=== PATIENT | female | born 1955 | race Caucasian/White ===

== ENCOUNTER 2025-06-06 15:16 | Emergency (ER) | payer MEDICARE, SELFPAY ==
--- OUTSIDE RECORDS SUMMARY | 2025-04-27 09:53 | XMS_ITS | Encounter Summary ---
Author Organization [facility] Address [address] [place] [address] Care Team Providers Care Flag Maker Name Role Phone Fredy Liang MD Unavailable Unavailable Nik Mackey MD Unavailable [phone] Coleman Davalos MD Unavailable [phone] Kristin Merino MD Primary Care Provider [phone] Abebe Hernandez MD Unavailable [phone] Chago Katz MD Unavailable [phone] Yemi Deleon PA-C Unavailable [phone] Reason for Referral * Diagnostic Imaging XR (Routine) - Pending Review Specialty Diagnoses / Procedures Referred By Sheree crowe Referred To Contact Radiology. 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) Decreased appetite History of choking Pancreatic lesion Essential (primary) hypertension Procedures XR Video Swallow with EXTRACT MIXER or OT Dorinda Valentin PA-C [facility] [address] [place] [address] Phone: tel: fax: Referral ID Status Reason Start Date Expiration Date V isits Requested Visits Authorized [id number] Pending Review 03/14/2025 03/14/2026 1 1 Encounter Details Date Type Department Care Team (Late st Contact Info) Description 04/27/2025 10:53 AM CDT - 04/27/2025 10:54 AM CDT Hospital Encounter [facility] [address] [facility] [address] [place] [address] Dorinda Valentin PA-C [facility] [address] [place] [address] 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); Decreased appetite; History of choking; Pancreatic lesion; Essential (primary) hypertension Discharge Disposition: Home or Self Care Social History Tobacco Use Types Packs/Day Years Used Date Smoking Tobacco: Never Passive Smoke Exposure: Never Smokeless Tobacco: Never Alcohol Use Standard Drinks/Week Comments No 0 (1 standard drink = 0.6 oz pur e alcohol) PHQ-2 Answer Date Recorded PHQ-2 Score 0 08/08/2024 Adolescent Education Answer Date Record ed Getting School Help Needed Not on file 04/05 Food Insecurity Answer Date Recorded Within the past 12 months, d id you worry that your food would run out before you got money to buy more? No 11/22/2024 Within the past 12 months, d id the food you bought just not last and you didn t have money to get more? No 11/22/2024 Housing Stability Answer Date Recorded Do you have housing? (Housin g is defined as stable permanent housing and does not include staying outside in a car, in a tent, in an abandoned building, in an overnight longterm, or couch-surfing.) Yes 11/22/2024 Are you worried about losing your housing? No 11/22/2024 Financial Resource Strain Answer Date R ecorded Within the past 12 months, h ave you or your family members you live with been unable to get utilities (heat, electricity) when it was really needed? No 11/22/2024 Transportation Needs Answer Date Record ed Within the past 12 months, h as lack of transportation kept you from medical appointments, getting your medicines, non-medical meetings or appointments, work, or from getting things that you need? No 11/22/2024 Interpersonal Safety Answer Date Record ed Do you feel physically and e motionally safe where you currently live? Yes 11/22/2024 Within the past 12 months, h ave you been hit, slapped, kicked or otherwise physically hurt by someone? No 11/22/2024 Within the past 12 months, h ave you been humiliated or emotionally abused in other ways by your partner or ex-partner? No 11/22/2024 Comments No Sex and Gender Information Value Date Recorded Sex Assigned at Not on file Legal Sex Female 3:26 AM MENU PLANNER Gender Identity Not on file Sexual Orientation Not on file documented as of this encounter Medications at Time of Discharge acetaminophen (TYLENOL) 325 MG tabletIndications:Uri nary tract infection without hematuria, site unspecified Take 3 tablets (975 mg) by mouth every 8 hours as needed for mild pain, fever or headaches. 11/29/2024 Continuous Glucose Sensor (FREESTYLE DASHA 3 SENSOR) [facility] [place] DIRECTED AND CHANGE SENSOR EVERY 14 DAYS 10/24/2023 furosemide (LASIX) 20 MG tabletIndications:Oth er cirrhosis of liver (H) Take 1 tablet (20 mg) by mouth daily. 11/29/2024 lactobacillus rhamnosus, GG, (CULTURELL) capsuleIndications:Ur inary tract infection without hematuria, site unspecified Take 1 capsule by mouth 2 times daily. 11/29/2024 metFORMIN (GLUCOPHAGE) 500 MG tabletIndications:Typ e 2 diabetes mellitus with hyperglycemia, without long-term current use of insulin (H) Take 1 tablet (500 mg) by mouth 2 times daily (with meals). 11/29/2024 mirabegron (MYRBETRIQ) 25 MG 24 hr tabletIndications:Uri nary tract infection without hematuria, site unspecified Take 1 tablet (25 mg) by mouth daily. 11/30/2024 nitroFURantoin macrocrystal-monohydr ate (MACROBID) 100 MG capsuleIndications:Ne phrolithiasis Take 1 capsule (100 mg) by mouth 2 times daily. 6 capsule 12/07/2024 ondansetron (ZOFRAN ODT) 4 MG ODT tabIndications:Recurr ent nephrolithiasis Take 1 tablet (4 mg) by mouth every 6 hours as needed for nausea. 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 30 capsule 09/29/2024 THYROID PO Take 45 mg by mouth daily. Natural/compo unded 12/15/2016 documented as of this encounter Plan of Treatment Upcoming Encounters Date Type Department Care Team (Late st Contact Info) Description 06/12/2025 1:20 PM MENU PLANNER Ancillary Procedure [facility] [address] [facility] [address] [place] [phone] Chago Katz MD [address] [place], [place] [address] 06/13/2025 3:00 PM MENU PLANNER Infusion Therapy Visit [facility] [address] [facility] [address] [place] [phone] Nate Beauchamp MD [address] [facility] [address] [place] [address] 06/16/2025 11:15 AM MENU PLANNER Virtual Visit [facility] [place] [address] [facility] [address] [place] [phone] Chago Katz MD [address] [place], [place] [address] 07/11/2025 3:00 PM MENU PLANNER Infusion Therapy Visit [facility] [address] [facility] [address] [place] [address] Nate Beauchamp MD [address] [facility] [address] [place] [address] 08/14/2025 12:30 PM MENU PLANNER Office Visit [facility] - [facility] [address] [facility] 9th Fl Clin [address] [place] [phone] Coleman Davalos MD [address] [facility] [address] [place] [address] documented as of this encounter Procedures Procedure Name Priority Date/Time Associated Diagnosis Comments XR VIDEO SWALLOW WITH EXTRACT MIXER OR OT Routine 04/27/2025 11:44 AM CDT 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 No aspiration or penetration. Narrative 04/27/2025 12:04 PM CDT EXAM: XR VIDEO SWALLOW WITH EXTRACT MIXER OR OT LOCATION: [facility] DATE: 04/27/2025 INDICATION: Difficulty swallowing. COMPARISON: None. TECHNIQUE: Routine swallow study with Speech Pathology using multiple barium thicknesses. RADIATION DOSE: Total Air Kerma 1.5 mGy FINDINGS: Swallow study with Speech Pathology using multiple barium thicknesses. No aspiration or penetration. Normal barium tablet swallowing. Procedure Note Len Tolentino MD - 04/27/2025 EXAM: XR VIDEO SWALLOW WITH EXTRACT MIXER OR OT LOCATION: [facility] DATE: 04/27/2025 INDICATION: Difficulty swallowing. COMPARISON: None. TECHNIQUE: Routine swallow study with Speech Pathology using multiplebarium thicknesses. RADIATION DOSE: Total Air Kerma 1.5 mGy FINDINGS: Swallow study with Speech Pathology using multiple barium thicknesses. No aspiration or penetration. Normal barium tablet swallowing. IMPRESSION: 1. No aspiration or penetration. 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 liver disease Decreased appetite Anorexia History of choking Pancreatic lesion Unspecified disease of pancreas Essential (primary) hypertension Unspecified essential hypertension documented in this encounter Administered Medications Inactive Administered Medications - up to 3 most recent administrations Medication Order MAR Action Action Date Dose Rate Site barium sulfate (EZ-DISK) 700 MG tablet Starting on [place] 04/27/25 at 1122, For 1 dose, Lorena Hameed: cabinet override $Given by Other 04/27/2025 11:40 AM CDT 700 mg barium sulfate (VARIBAR THIN Liquid) 40 % oral suspension 16 g 16 g (40 mL), Oral, ONCE, On [place] 04/27/25 at 1130, For 1 dose $Given 04/27/2025 11:40 AM CDT 16 g barium sulfate (VARIBAR) 40 % pudding/paste 30 mL 30 mL, Oral, ONCE, On [place] 04/27/25 at 1130, For 1 dose $Given 04/27/2025 11:40 AM CDT 30 mLs documented in this encounter Care Teams Flag Maker Relationship Specialty Start Date End Date Kristin Merino MD [address] [facility] [address] [place] [address] PCP - General Internal Medicine 08/04/22 Fredy Liang MD Referring Physician Urology 02/02/14 Nik Mackey MD [facility] [address] [place], [place] [address] Referring Physician Ophthalmology 08/24/15 Coleman Davalos MD [address] [facility] [address] [place] [address] Ophthalmology 08/24/15 Abebe Hernandez MD [address] [place] [id number] Urology 02/27/23 Chago Katz MD [address] [place] [address] Assigned Surgical Provider 03/28/23 Yemi Deleon PA-C [address] [place] [address] Assigned Neuroscience Provider 06/04/24 documented as of this encounter
--- OUTSIDE RECORDS SUMMARY | 2025-04-27 09:55 | XMS_ITS | Encounter Summary ---
Author Organization [facility] Address [address] [place] [address] Care Team Providers Care Mill Work Name Role Phone Fredy Liang MD Unavailable Unavailable Nik Mackey MD Unavailable [phone] Coleman Davalos MD Unavailable [phone] Kristin Merino MD Primary Care Provider [phone] Abebe Hernandez MD Unavailable [phone] Chago Katz MD Unavailable [phone] Yemi Deleon PA-C Unavailable Reason for Visit * Rehab Therapy Speech Therapy (Routine) - Closed Specialty Diagnoses / Procedures Referred By Sheree crowe Referred To Contact Speech Therapy Diagnoses Dysphagia, unspecified type [address] [address] Phone: tel: Referral ID Status Reason Start Date Expiration Date Visits Re quested Visits Authorized [id number] Closed 04/27/2025 07/12/2025 365 1 Encounter Details Date Type Department Care Team (Latest Contact Info) Description 04/27/2025 10:55 AM CDT - 04/27/2025 11:59 PM CDT Hospital Encounter [address] [phone] Dorinda Valentin PA-C [facility] [address] [place] [address] [place] [address] Trinidad Lee, WALLPAPERER Discharge Disposition: Home or Self Care Social [...] in an abandoned building, in an overnight fpc, or couch-surfing.) Yes 11/22/2024 Are you worried [...] on file Legal Sex Female 3:26 AM LACING STRING CUTTER Gender Identity Not on file Sexual Orientation Not on file documented as of this encounter Medications at Time of Discharge acetaminophen (TYLENOL) 325 MG tabletIndications:Uri nary tract infection without hematuria, site unspecified Take 3 tablets (975 mg) by mouth every 8 hours as needed for mild pain, fever or headaches. 11/29/2024 Continuous Glucose Sensor (FREESTYLE DASHA 3 SENSOR) [facility] USE DIRECTED AND CHANGE SENSOR EVERY 14 [...] unded 12/15/2016 documented as of this encounter Progress Notes * Trinidad Lee, WALLPAPERER - 04/27/2025 11:08 AM CDT SPEECH LANGUAGE PATHOLOGY EVALUATION Fall Risk Screen: Subjective Condition type: Cause of current episode: Nature of treatment: Functional ability: Documented POC (choose all that apply): Briefly describe symptoms: How did the symptoms start: Average pain/intensity last 24 hours: Average pain/intensity past week: Frequency of Symptoms: Symptom impact on ADLs: Condition change since eval: General health reported by patient: Presenting condition or subjective complaint: Pt reports intermittent difficulty swallowing, a couple times per week per her report. Food feels stuck and is difficult to swallow. 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 Prior therapy history for the same diagnosis, illness or injury: Patient goals for therapy: To check on swallowing and make sure there isn't something wrong. Pain assessment: Pain denied Objective SWALLOW EVALUTION Dysphagia history: Pt reports intermittent choking when eating/drinking. She states this could happen a couple times a week. When asked about details she describes this as food feeling stuck. She also states she might bite her lip once or twice per week. Current Diet/Method of Nutritional Intake: thin liquids (level 0), regular diet VIDEOFLUOROSCOPIC SWALLOW STUDY Radiologist: Dr. Len Tolentino Views Taken: left lateral (unable to position for AP view - AP not necessary based on test results) Physical location of procedure: [facility] Patient sitting upright on chair/stool VFSS textures trialed: VFSS Eval: Thin Liquids Mode of Presentation: cup, straw, self-fed Order of Presentation: 1,2,3,5,7 Preparatory Phase: WFL Oral Phase: WFL Bolus Location When Swallow Initiated: posterior angle of ramus Pharyngeal Phase: WFL Rosenbeck's Penetration Aspiration Scale: 1 - no aspiration, contrast does not enter airway Diagnostic Statement: no penetration, aspiration or pharyngeal residue VFSS Eval: Purees Mode of Presentation: spoon, self-fed Order of Presentation: 4,6 Preparatory Phase: WFL, slow due to disliking the taste Oral Phase: WFL, slow due to disliking the taste Bolus Location When Swallow Initiated: posterior angle of ramus, valleculae Pharyngeal Phase: WFL Rosenbeck???s Penetration Aspiration Scale: 1 - no aspiration, contrast does not enter airway Diagnostic Statement: slower oral phase due to disliking the taste, no penetration, aspiration or pharyngeal residue Pt refused solid texture due to gluten sensitivity. VFSS Eval: Barium Tablet Mode of Presentation: self-fed Order of Presentation: 8 Preparatory Phase: WFL Oral Phase: WFL Bolus Location When Swallow Initiated: posterior angle of ramus Pharyngeal Phase: WFL Rosenbeck???s Penetration Aspiration Scale: 1 - no aspiration, contrast does not enter airway Diagnostic Statement: timely passage of barium tablet, no penetration, aspiration or residue ESOPHAGEAL PHASE OF SWALLOW no observed or reported concerns related to esophageal function No visible residue in upper esophagus SWALLOW ASSESSMENT CLINICAL IMPRESSIONS AND RATIONALE Diet Consistency Recommendations: thin liquids (level 0), regular diet Recommended Feeding/Eating Techniques: small bolus size, slow rate of intake, alternate food and liquid intake Medication Administration Recommendations: as tolerated Instrumental Assessment Recommendations: instrumental evaluation not recommended at this time Assessment & Plan CLINICAL IMPRESSIONS Medical Diagnosis: Treatment Diagnosis: Impression/Assessment: Videoswallow study completed per MD order. Under fluoroscopy this patient demonstrated intact oropharyngeal swallowing ability. AP transit slow, related to behavioral change and disliking the barium taste. Once triggered, swallow noted to be fully intact with strong/timely pharyngeal excursion, good epiglottic inversion, no episodes of penetration/aspiration or pharyngeal residue with any trial. Of note the patient coughed throughout this exam in the absence of penetration/aspiration. Cough not related to swallow function. PLAN OF CARE Treatment Interventions: evaluation only, tx not indicated at this time Prognosis to achieve stated therapy goals is good Rehab potential is impacted by: current level of function Frequency of Treatment: evaluation only, tx not indicated at this time Duration of Treatment: evaluation only, tx not indicated at this time Recommended Referrals to Other Professionals: NA Education Assessment: Risks and benefits of evaluation/treatment have been explained. Patient/Family/caregiver agrees with Plan of Care. Evaluation Time: Evaluation Only Signing Clinician: JACY Adler [facility] OUTPATIENT SPEECH LANGUAGE PATHOLOGY JACY Adler Referring Provider: Dorinda Valentin Initial Assessment See Epic Evaluation- documented in this encounter Miscellaneous Notes * Addendum Note - Trinidad Lee SLP - 04/27/2025 1:31 PM CDTEncounter addended by: Trinidad Lee SLP on: 04/27/2025 1:31 PM Actions taken: Document created, Document edited documented in this encounter Plan of Treatment Upcoming Encounters Date Type Department Care Team (Late st Contact Info) Description 06/12/2025 1:20 PM LACING STRING CUTTER Ancillary Procedure [facility] [address] [facility] [address] [place] [phone] Chago Katz MD [address] [place], [place] [address] 06/13/2025 3:00 PM LACING STRING CUTTER Infusion Therapy Visit [facility] [address] [place] [address] [address] [place] [phone] Nate Beauchamp MD [address] [facility] [address] [place], [place] [address] 06/16/2025 11:15 AM LACING STRING CUTTER Virtual Visit [facility] Urology [facility] [address] [facility] [address] [place] [phone] Chago Katz MD [address] [place], [place] [address] 07/11/2025 3:00 PM LACING STRING CUTTER Infusion Therapy Visit [facility] [address] [place] [address] [place] [address] Nate Beauchamp MD [address] [place], [place] [address] 08/14/2025 12:30 PM LACING STRING CUTTER Office Visit [facility] Eye [facility] [address] [facility] Department [address] [place] [address] Coleman Davalos MD [address] [facility] 493 [place], [place] [address] Scheduled Referrals Name Type Priority Associated Diagnoses Orde r Schedule Speech Therapy Apartment Leasing Consultant Referral Referral Routine Dysphagia, unspecified type Ordered: 03/21/2025 documented as of this encounter Visit Diagnoses Not on filedocumented in this encounter Care Teams Mill Work Relationship Specialty Start Date End Date Kristin Merino MD [address] [facility] 493 [place] [address] PCP - General Internal Medicine 08/04/22 Fredy Liang MD Referring Physician Urology 02/02/14 Nik Mackey MD [facility] [address] [place] [address] Referring Physician Ophthalmology 08/24/15 Coleman Davalso MD [address] [place] [id number] Ophthalmology 08/24/15 Abebe Hernandez MD [address] [place], [place] [address] Urology 02/27/23 Chago Katz MD [address] [place] [address] Assigned Surgical Provider 03/28/23 Yemi Deleon PA-C [address] [place] [address] Assigned Neuroscience Provider 06/04/24 documented as of this encounter
--- OUTSIDE RECORDS SUMMARY | 2025-05-01 13:00 | XMS_ITS | Encounter Summary ---
[facility] Organization [facility] Address [address] [place] [address] Care Team Providers Care Reprographics Associate Name Role Phone Erick Vivas MD Primary Care Provider [phone] Reason for Visit * Reason Comments Foot Problem * Therapies (Routine) - Authorized Specialty Diagnoses / Procedures Referred By Sheree t Referred To Contact Physical Therapy Diagnoses [place] in [place] [address] [place] [address] Phone: tel: fax: [facility] [address] [address] Phone: tel: fax: Referral ID Status Reason Start Date Expiration Date V isits Requested Visits Authorized [id number] Authorized 05/01/2025 07/24/2025 14 14 Encounter Details Date Type Department Care Team (Late st Contact Info) Description 05/01/2025 2:00 PM CDT Therapy [facility] [address] [phone] [place] [address] [place] [address] Right foot pain (Primary Dx) Social History Tobacco Use Types Packs/Day Years Used Date Smoking Tobacco: Never Comments Unknown Sex and Gender Information Value Date Recorded Sex Assigned at Not on file Legal Sex Female 6:20 PM CDT Gender Identity Not on file Sexual Orientation Not on file documented as of this encounter Progress Notes * Katy Barajas, PT - 05/01/2025 2:00 PM CDT Physical Therapy Evaluation Payor: [facility] MEDICARE REPLACEMENT / Plan: [facility] MEDICARE ADVANTAGE / Product Type: Medicare / Visit Number: 08/01 for KX Certification Period: 05/01/2025 - 07/30/25 Visit Diagnosis: Diagnosis and Associated Orders ICD-10-CM 1. Right foot pain M79.671 Referring Diagnosis: Closed nondisplaced fracture of fifth metatarsal bone of right foot with routine healing, subsequent encounter Date of Onset/Referral: 05/01/2025 Precautions/Barriers/Pertinent Medical History: H Orders: Eval and treat SUBJECTIVE Reason for Visit: Pt she reports right foot pain after falling and breaking her 5th metatarsal. pt also discussed history Pain: Current: 10/20 Functional Limitations/Aggravating Factors: Difficulty/pain with walking, sit stands, balance Relieving factors: change of position Prior Treatment: None Prior Level of Function: Required assistance with Bathing Bed mobility Dressing: Shoes / socks, Pants, Overhead shirt, and Jacket Driving Grooming: hair and face acrylic fabricator: all Recently Experienced (Red Flags): Denies fever, chills, night sweats, unrelenting night pain, unexplained weight loss, bowel/bladder changes, saddle sensation changes Recently Experienced (Yellow Flags): None Work/ Leisure/ Hobbies/ Living Situation: retired, lives with , daughter in session,doesn't drive- trying to get drivers license back Patient Goals: increased ability to walk and increased function Outcome Measures: PT - Musculoskeletal - Ankle Foot & Ankle Ability Measure - ADL (0-100%, 100% being best): 20 Past Medical History[1] Past Surgical History[2] OBJECTIVE Items left blank were not deemed necessary at time of assessment Observation: Left: Within normal limits Right: Within normal limits Gait Exam: Antalgic, Decreased heel strike, and Decreased toe off Functional Tests: Double leg heel raise: able to perform full range and no arm support Single leg heel raise: unable to perform Edema: None Screening: Knee Screen: Within Normal Limits ROM: Ankle/Foot Range of Motion (ROM) (degree or limitation) Motion Right Left Comments A = Active, P = Passive AROM PROM AROM PROM OKC Ankle Dorsiflexion wnl wnl wnl CKC Ankle Dorsiflexion wnl Ankle Plantar Flexion wnl wnl Ankle Inversion wnl wnl Ankle Eversion wnl wnl 1st MTP Extension Strength: Lower Extremity Strength (x/5) Motion Right Left Comments Dorsiflexion 5/5 5/5 Plantarflexion 5/5 5/5 Inversion 5/5 5/5 Eversion 5/5 5/5 * - indicates pain during testing Joint Mobility: Not tested Flexibility: Hip flexors: Restricted Gastroc/Soleus: Restricted Neurological Screen: Deferred Palpation: Right tender: anterior ankle Proprioception: Single leg stance: unable Tandem stance x10s each side TODAY'S INTERVENTION/CHARGES: Physical Therapy Evaluation was completed and the patient was educated on the condition, planned therapy intervention and expectations from treatment. Therapeutic [email or web address] Activities performed to develop strength, endurance, range of motion and flexibility Provided instruction for the exercises noted and performed in clinic with verbal and tactile cues for proper technique. Handouts were issued for exercise in the HEP and reviewed with repetitions, sets, and frequency. Educated patient on rationale for selected exercises. Patient questions were addressed. Home Program: Access Code: [email or web address] URL: [email or web address] Date: 05/01/2025 Prepared by: Katy Barajas Exercises - Standing Heel Raise - 1 x daily - 7 x weekly - 2 sets - 10 reps - Toe Raise With Back Against Wall - 1 x daily - 7 x weekly - 2 sets - 10 reps - Standing Tandem Balance with Counter Support - 1 x daily - 7 x weekly - 2 sets - 10 reps - 10s hold Timed Charges (Minutes): 13125 - Therapeutic Exercise: 15 Timed Code Treatment Minutes: 15 Total Treatment Minutes: 30 *pt late ASSESSMENT Therapist Impression/Summary: [place] presents to therapy with signs/symptoms consistent with right foot fracture and demonstrates the following impairments: Pain, Muscle tightness/decreased flexibility, Muscle weakness, Muscular imbalances, ROM Limitation, Proprioception deficits. Will eval bilateral shoulders next visit with new referral in system. Patient will benefit from skilled therapy to appropriately progress training to meet functional goals noted below. Prognosis: good Complexity: Based on the following:?1-2 personal factors and/or comorbidities that impact care (Moderate), 3 elements addressed from body structures and function - see objective section and functional limitations (Moderate), and stable and uncomplicated presentation (Low), this is a Moderate Complexity evaluation. Goals/Functional Outcomes (to be met by end of therapy, noted in PLAN below): Patient will be independent with home exercise program for improved self management. Patient will improve the Foot and Ankle Mobility Measure score from 20% to 40% (MDC +7%, higher score indicates less disability) indicating improvement in general function due to decreased lower extremity symptoms. ADL's: Perform sit to stand transfer using involved lower extremity with no, minimum limitation forhome and community access. Increase standing tolerance to 30 minutes to be able to get ready for the day. Ambulation: Ambulate safely with least restrictive assistive device, minimum limitation for home and community access. PLAN Recommendations/Plan for Next Visit: ankle stability/balance, shoulder eval PT Frequency/Duration: 1x/week for 12-14 visits Planned Intervention/Education: Therapeutic Activity (36135), Neuromuscular Re-Education (86264), Therapeutic Exercise (47762), Manual Therapy (24365), Self-Care/Home Management (43719) Education, Gait Training (27160), E-Stim: Attended (75696), Iontophoresis with Dexamethasone (81688), TENS, Blood Flow Restriction Therapy, Dry Needling, Orthotics, Ultrasound (80632), Heat, and Ice Informed Consent: Risks, benefits and alternatives to treatment have been explained. Patient and/orfamily in agreement with care plan. The clinician's signature certifies medical necessity for the treatment plan above. [1] No past medical history on file. [2] No past surgical history on file. Cosigned by Barry Antonio MD at 05/03/2025 9:56 AM CDT Associated attestation - Barry Antonio MD - 05/03/2025 9:56 AM CDT Ordering provider signature is required to continue treatment of this patient per Medicare / Medical Assistance regulations. I certify / re-certify the need for the above services furnished under this treatment plan while under my care. Barry Antonio MD 05/03/2025, 9:56 AM documented in this encounter Plan of Treatment Upcoming Encounters Date Type Department Care Team (Late st Contact Info) Description 06/21/2025 3:00 PM NEUROLOGY MANAGER Appointment [facility] [address] [address] [place] [address] [place] [address] 06/30/2025 1:45 PM NEUROLOGY MANAGER Appointment [facility] [address] [address] [place] [address] [place] [address] 07/14/2025 3:15 PM NEUROLOGY MANAGER Appointment [facility] [address] [address] [place] [address] [place] [address] documented as of this encounter Visit Diagnoses Diagnosis Right foot pain- Primary Pain in limb documented in this encounter Care Teams Reprographics Associate Relationship Specialty Start Date End Date Erick Vivas MD [address] [place] [address] PCP - General 10/14/10 documented as of this encounter
--- OUTSIDE RECORDS SUMMARY | 2025-05-10 12:30 | XMS_ITS | Encounter Summary ---
[facility] Organization [facility] Address [address], [place] [address] Care Team Providers Care Check Out Cashier Name Role Phone Erick Vivas MD Primary Care Provider [phone] Reason for Visit * Reason Comments Shoulder Problem * Therapies (Routine) - Authorized Specialty Diagnoses / Procedures Referred By Sheree t Referred To Contact Physical Therapy Diagnoses [place] in [place] [address] [place] [address] Phone: tel: fax: [facility] [address] [address] Phone: tel: fax: Referral ID Status Reason Start Date Expiration Date V isits Requested Visits Authorized [id number] Authorized 05/01/2025 07/24/2025 14 14 Encounter Details Date Type Department Care Team (Late st Contact Info) Description 05/10/2025 1:30 PM CDT Therapy [facility] [address] [phone] [place] [address] [place], [place] [phone] Chronic pain of both shoulders (Primary Dx) Social History Tobacco Use Types Packs/Day Years Used Date Smoking Tobacco: Never Comments Unknown Sex and Gender Information Value Date Recorded Sex Assigned at Not on file Legal Sex Female 6:20 PM CDT Gender Identity Not on file Sexual Orientation Not on file documented as of this encounter Progress Notes * Katy Barajas, PT - 05/10/2025 1:30 PM CDT Physical Therapy Evaluation Payor: [facility] MEDICARE REPLACEMENT / Plan: [facility] MEDICARE ADVANTAGE / Product Type: Medicare / Visit Number: 08/01 for KX Certification Period: 05/10/2025 - 08/08/25 Visit Diagnosis: Diagnosis and Associated Orders ICD-10-CM 1. Chronic pain of both shoulders M25.511 G89.29 M25.512 Referring Diagnosis: Chronic pain of both shoulders Date of Onset/Referral: 04/11/2025 Precautions/Barriers/Pertinent Medical History: PMH Orders: Eval and treat SUBJECTIVE Reason for Visit: Pt is also being seen in PT for her right foot and balance dysfunction shoulders on both sides started about a year ago hurting Hurt to sleep, can sleep on right side more Left side hurts more Movements away from the body, or behind back, can't put bra on and hard time to put shirt and pantson, cross body movement No pain with sitting in clinic Pain in upper arm and sometimes into forearm Shoulders hurt sometimes with walker or pushing up from a chair Is having injections for bone health, voice is hoarse if really tired Pain: Current: 0/10 and Worst: 6-7/10 Functional Limitations/Aggravating Factors: Difficulty/pain with bed mobility, carrying, dressing, grooming, stripper and taper, increased activity, lifting, overhead reaching, pulling, pushing, reading, and repetitive activity Relieving factors: rest Prior Treatment: None Prior Level of Function: Required assistance with Ambulation Bathing Grooming: hard to lift arms above head v groove cutter: all Toileting Transfers: sit to stand Recently Experienced (Red Flags): Denies fever, chills, night sweats, unrelenting night pain, unexplained weight loss, bowel/bladder changes, saddle sensation changes Recently Experienced (Yellow Flags): None Work/ Leisure/ Hobbies/ Living Situation: lives at home with , wants to be able to drive (working license) Patient Goals: be able to use arms for standing and walking Outcome Measures: PT - Musculoskeletal - Shoulder QuickDASH (0-100, 0 being best): 68.2 Past Medical History[1] Past Surgical History[2] OBJECTIVE Items left blank were not deemed necessary at time of assessment Observation: forward head and rounded shoulders Right hand dominant Functional Tests: Hands behind head restricted/painful. Hands behind back restricted/painful. Hands on opposite shoulders restricted/painful. Cervical Screening/Special Tests (+ is a positive finding, - is a negative finding): Spurling: negative, Distraction: negative ROM: Upper Extremity Range of Motion (ROM - degrees) Motion Right Left Comments A= active, P= passive AROM PROM AROM PROM Shoulder Flexion 90 120 90 110 *pain at end range Shoulder Extension Shoulder Abduction 90 120 90 110 *pain at end range Shoulder External Rotation Neutral 35 50 35 50 *pain at end range Shoulder Internal Rotation Neutral Shoulder External Rotation 90/90 Shoulder Internal Rotation 90/90 * - indicates pain during testing Strength: Upper Extremity Strength (x/5) Motion Right Left Comments Shoulder Flexion 3+/5* 3+/5 * Shoulder Abduction Shoulder External Rot. 3+/5* 3+/5* Shoulder Internal Rot. 4-/5* 4-/5* Middle Trap Rhomboids Lower Trap * - indicates pain during testing Flexibility: Upper traps: Restricted, Pectoralis major: Restricted, and Pectoralis minor: Restricted Joint mobility: GH: WNL Palpation: Tenderness with palpation to: Bilateral: Deltoid Special Tests: Hunter Morgan for impingement: Positive Painful Arc Sign for impingement: Positive ER Strength for impingement: Positive Neers Test for impingement: Positive TODAY'S INTERVENTION/CHARGES: Physical Therapy Evaluation was completed and the patient was educated on the condition, planned therapy intervention and expectations from treatment. Therapeutic exercises: Activities performed to develop strength, endurance, range of motion and flexibility Provided instruction for the exercises noted and performed in clinic with verbal and tactile cues for proper technique. Handouts were issued for exercise in the HEP and reviewed with repetitions, sets, and frequency. Educated patient on rationale for selected exercises. Patient questions were addressed. Home Program: Access Code: [email or web address] URL: [email or web address] Date: 05/11/2025 Prepared by: Katy Barajas Exercises - Shoulder External Rotation and Scapular Retraction with Resistance - 2 x daily - 7 x weekly - 1 sets - 10 reps - Standing Shoulder Row with Anchored Resistance - 2 x daily - 7 x weekly - 1 sets - 10 reps - Seated Chest Stretch with Hands Behind Head - 2 x daily - 7 x weekly - 1 sets - 10 reps - 10s hold - Doorway Pec Stretch at 60 Elevation - 2 x daily - 7 x weekly - 1 sets - 10 reps - 10s hold Timed Charges (Minutes): 17271 - Therapeutic Exercise: 15 Timed Code Treatment Minutes: 15 Total Treatment Minutes: 45 ASSESSMENT Therapist Impression/Summary: [place] presents to therapy with signs/symptoms consistent with bilateral shoulder pain and demonstrates the following impairments: Pain, Muscle tightness/decreased flexibility, Muscle weakness, Muscular imbalances, ROM Limitation, Proprioception deficits. pt reports shegets fatigued easily so can only do a few repetitions at a time. Patient will benefit from skilled therapy to appropriately progress training to meet functional goals noted below. Prognosis: fair Complexity: Based on the following:?3 or more personal factors and/or comorbidities that impact care (High), 4 or more elements addressed from body structures and function - see objective section andfunctional limitations (High), and evolving clinical presentation with changing clinical characteris tics (Moderate), this is a High Complexity evaluation. Goals/Functional Outcomes (to be met by end of therapy, noted in PLAN below): Patient will be independent with home exercise program for improved self management. Patient will improve QuickDASH score from 62% to less than 40% (MCID -8%, lower score indicates less disability) indicating improvement in general function. ADL's: Perform home management tasks with minimum limitation. Marlin hair and face using affected extremity with minimum limitation. Dress, including don and doff shirt and pants with minimum limitation. Reach overhead to cabinet with minimum limitation. PLAN Recommendations/Plan for Next Visit: shoulder strengthening and ROM PT Frequency/Duration: 1x/week for 12-14 visits Planned Intervention/Education: Therapeutic Activity (16227), Neuromuscular Re-Education (40151), Therapeutic Exercise (35279), Manual Therapy (21239), Self-Care/Home Management (81023) Education, Gait Training (49476), Physical Performance Testing (07783), Dry Needling, Ultrasound (27037), Heat, and Ice Informed Consent: Risks, benefits and alternatives to treatment have been explained. Patient and/orfamily in agreement with care plan. The clinician's signature certifies medical necessity for the treatment plan above. [1] No past medical history on file. [2] No past surgical history on file. documented in this encounter Plan of Treatment Upcoming Encounters Date Type Department Care Team (Late st Contact Info) Description 06/21/2025 3:00 PM CHIEF INVESTMENT OFFICER Appointment [facility] [address] [address] [place] [address] [place] [address] 06/30/2025 1:45 PM CHIEF INVESTMENT OFFICER Appointment [facility] [address] [address] [place] [address] [place] [address] 07/14/2025 3:15 PM CHIEF INVESTMENT OFFICER Appointment [facility] [address] [address] [place] [address] [place] [address] documented as of this encounter Visit Diagnoses Diagnosis Chronic pain of both shoulders- Primary Pain in joint, shoulder region documented in this encounter Care Teams Check Out Cashier Relationship Specialty Start Date End Date Erick Vivas MD [address] [place] [address] PCP - General 10/14/10 documented as of this encounter
--- OUTSIDE RECORDS SUMMARY | 2025-05-11 14:30 | XMS_ITS | Encounter Summary ---
Author Organization [facility] Address [address] [place] [address] Care Team Providers Care Signalman Name Role Phone Erick Vivas MD Primary Care Provider [phone] Reason for Referral * Procedure/Equipment (Routine) - Incomplete Specialty Diagnoses / Procedures Referred By Contac t Referred To Contact Diagnoses Closed nondisplaced fracture of fifth metatarsal bone of right foot with routine healing, subsequent encounter Procedures XR Foot Rt 3+ Views Barry Antonio MD [address] [place] [address] Phone: tel: fax: Referral ID Status Reason Start Date Expiration Date V isits Requested Visits Authorized [id number] Incomplete 05/11/2025 08/10/2026 1 1 Reason for Visit * Reason Comments Follow-up Closed nondisplaced fracture of fifth metatarsal bone of right foot with routine healing, Encounter Details Date Type Department Care Team (Late st Contact Info) Description 05/11/2025 3:30 PM CDT Office Visit [facility] at [address] [address] Barry Antonio MD [address] [place] [phone] Closed nondisplaced fracture of fifth metatarsal bone of right foot with routine healing, subsequent encounter (Primary Dx) Social History Tobacco Use Types Packs/Day Years Used Date Smoking Tobacco: Never Comments Unknown Sex and Gender Information Value Date Recorded Sex Assigned at Not on file Legal Sex Female 6:20 PM CDT Gender Identity Not on file Sexual Orientation Not on file documented as of this encounter Last Filed Vital Signs Vital Sign Reading Time Taken Comments Blood Pressure - - Pulse - - Temperature 36.8 C (98.3 F) 05/11/2025 3:52 PM CDT Respiratory Rate - - Oxygen Saturation - - Inhaled Oxygen Concentration - - Weight - - Height - - Body Mass Index - - documented in this encounter Patient Instructions * Patient Instructions* Barry Antonio MD - 05/11/2025 3:30 PM CDT Continue physical Therapy Follow up as needed documented in this encounter Progress Notes * Barry Antonio MD - 05/11/2025 3:30 PM CDT [facility] Follow-Up 05/11/2025 History of Present Illness: Juana Garza is a 69 y.o. female who presents for follow-up right 5th metatarsal fracture now 10 weeks out from injury. Patient had 6 weeks in a cam boot followed by 3 weeks in a postop shoe. She is subsequently transitioned successfully into a regular supportive shoe without significant pain. Nonew symptoms. No new injury. No swelling. Physical Exam: Temp 36.8 ??C (98.3 ??F) (Oral) Skin: No redness, warmth, rash, laceration or abrasion Neuro: Intact sensation to light touch sural, saphenous, superficial and deep peroneal nerves Cardiovascular: 2+ distal pulses Musculoskeletal: Right foot: No edema. Nontender hindfoot midfoot and metatarsals. Right ankle: Able to move ankle in all cardinal directions within functional limits. Imaging: XR Foot Rt 3+ Views EXAM: XR FOOT RT 3+ VIEWS INDICATION: fracture COMPARISON: 04/13/2025. FINDINGS: There has been further healing of the previously seen fracture of the distal right 5th metatarsal. Marked osteopenia is again noted. No definite acute fracture. Signed by: Yordy Rolon 05/11/2025 4:14 PM I ordered, independently read and reviewed the radiographs above; the results were discussed with the patient. Assessment: ICD-10-CM 1. Closed nondisplaced fracture of fifth metatarsal bone of right foot with routine healing, subsequent encounter S92.354D XR Foot Rt 3+ Views Plan: 69-year-old female with evidence of clinical and significant radiographic healing of a fracture of the base of the 5th metatarsal bone not 10 weeks out from injury. Patient has already initiated physical therapy for rehab of ankle and foot after prolonged immobilization. Patient should continue this project. She may continue to advance her activities as tolerated. She can follow up with me as needed. Scribe Disclosure: Barry Dominguez, am serving as a scribe to document services personally performed by Barry Antonio MD at this visit, based upon the providers statements to me. All documentation has been reviewed by the aforementioned doctor prior to being entered into the official medical record. Entered on 05/11/25 at 4:26 PM. Barry Dominguez MD, attest that the above named individual is acting in scribe capacity, has observed my performance of the services performed at this visit and has documented them in accordancewith my direction. Entered on 05/11/25 at 4:26 PM. Barry Antonio MD This note was transcribed using [employer], there might be some spelling errors or word substitutions that were not noticed on first review. This message is confidential, intended only for the named recipient(s) and may contain information that is privileged or exempt from disclosure under applicable law. If you are not the intended recipient(s), you are notified that the dissemination, distribution or copying of this information is strictly prohibited. If you received this message in error, please notify the sender then delete this message. documented in this encounter Plan of Treatment Upcoming Encounters Date Type Department Care Team (Late st Contact Info) Description 06/21/2025 3:00 PM SUPERVISOR SHEARING Appointment [facility] [address] [address] [place] [address] [place] [address] 06/30/2025 1:45 PM SUPERVISOR SHEARING Appointment [facility] [place] [address] [place] [address] [place] [address] [place] [address] 07/14/2025 3:15 PM SUPERVISOR SHEARING Appointment [facility] [place] [address] [place] [address] [place] [address] [place] [address] documented as of this encounter Results * XR Foot Rt 3+ Views (05/11/2025 4:11 PM CDT) Anatomical Region Laterality Modality Lower Extremity, Foot Digital Ra diography Narrative 05/11/2025 4:14 PM CDT EXAM: XR FOOT RT 3+ VIEWS INDICATION: fracture COMPARISON: 04/13/2025. FINDINGS: There has been further healing of the previously seen fracture of the distal right 5th metatarsal. Marked osteopenia is again noted. No definite acute fracture. Signed by: Yordy Rolon 05/11/2025 4:14 PM Procedure Note Yordy Rolon MD - 05/11/2025 EXAM: XR FOOT RT 3+ VIEWS INDICATION: fracture COMPARISON: 04/13/2025. FINDINGS: There has been further healing of the previously seen fracture of thedistal right 5th metatarsal. Marked osteopenia is again noted. Nodefinite acute fracture. Signed by: Yordy Rolon 05/11/2025 4:14 PM us Barry Antonio MD RAD GD Final Result documented in this encounter Visit Diagnoses Diagnosis Closed nondisplaced fracture of fifth metatarsal bone of right foot with routine healing, subsequent encounter- Primary Closed nondisplaced fracture of fifth metatarsal bone of right foot with routine healing, subsequent encounter documented in this encounter Care Teams Signalman Relationship Specialty Start Date End Date Erick Vivas MD [address] [place] [address] PCP - General 10/14/10 documented as of this encounter
--- OUTSIDE RECORDS SUMMARY | 2025-05-11 15:00 | XMS_ITS | Encounter Summary ---
Author Organization [facility] Address [address] [place] [address] Care Team Providers Care Pet Groomer Name Role Phone Erick Vivas MD Primary Care Provider [phone] Reason for Visit * Procedure/Equipment (Routine) - Incomplete Specialty Diagnoses / Procedures Referred By Contac t Referred To Contact Diagnoses Closed nondisplaced fracture of fifth metatarsal bone of right foot with routine healing, subsequent encounter Procedures XR Foot Rt 3+ Views Barry Antonio MD [address] [place] [address] Phone: tel: fax: Referral ID Status Reason Start Date Expiration Date V isits Requested Visits Authorized [id number] Incomplete 05/11/2025 08/10/2026 1 1 Encounter Details Date Type Department Care Team (Latest Contact Info) Description 05/11/2025 4:00 PM CDT Ancillary Procedure [facility] [address] [address] [address] [place] [phone] Barry Antonio MD [address] [place] [address] Closed nondisplaced fracture of fifth metatarsal bone of right foot with routine healing, subsequent encounter Social History Tobacco Use Types Packs/Day Years Used Date Smoking Tobacco: Never Comments Unknown Sex and Gender Information Value Date Recorded Sex Assigned at Not on file Legal Sex Female 6:20 PM CDT Gender Identity Not on file Sexual Orientation Not on file documented as of this encounter Plan of Treatment Upcoming Encounters Date Type Department Care Team (Late st Contact Info) Description 06/21/2025 3:00 PM FOOD SERVICE DRIVER Appointment [facility] [address] [address] [place] [address] [place] [address] 06/30/2025 1:45 PM FOOD SERVICE DRIVER Appointment [facility] [address] [address] [place] [address] [place] [address] 07/14/2025 3:15 PM FOOD SERVICE DRIVER Appointment [facility] [address] [address] [place] [address] [place] [address] documented as of this encounter Procedures Procedure Name Priority Date/Time Associated Diagnosis Comments XR FOOT RT 3+ VIEWS Routine 05/11/2025 4:11 PM CDT Closed nondisplaced fracture of fifth metatarsal bone of right foot with routine healing, subsequent encounter documented in this encounter Results * XR Foot Rt [...] encounter documented in this encounter Care Teams Pet Groomer Relationship Specialty Start Date End Date Erick Vivas MD [address] [place] [address] PCP - General 10/14/10 documented as of this encounter
--- OUTSIDE RECORDS SUMMARY | 2025-05-15 14:45 | XMS_ITS | Encounter Summary ---
Author Organization [facility] Address [address] [place] [address] Care Team Providers Care Cnc Machine Programmer Name Role Phone Erick Vivas MD Primary Care Provider [phone] Reason for Visit * Reason Comments Shoulder Problem * Therapies (Routine) - Authorized Specialty Diagnoses / Procedures Referred By Sheree t Referred To Contact Physical Therapy Diagnoses [place] in [place] [address] [place] [address] Phone: tel: fax: [facility] [address] [address] Phone: tel: fax: Referral ID Status Reason Start Date Expiration Date V isits Requested Visits Authorized [id number] Authorized 05/01/2025 07/24/2025 14 14 Encounter Details Date Type Department Care Team (Late st Contact Info) Description 05/15/2025 2:45 PM UNIVERSITY DEMONSTRATOR Therapy [facility] [address] [id number] [place] [address] [place] [address] Chronic pain of both shoulders (Primary Dx) Social History Tobacco Use Types Packs/Day Years Used Date Smoking Tobacco: Never Comments Unknown Sex and Gender Information Value Date Recorded Sex Assigned at Not on file Legal Sex Female 6:20 PM CDT Gender Identity Not on file Sexual Orientation Not on file documented as of this encounter Progress Notes * Katy Barajas, PT - 05/15/2025 2:45 PM CST Physical Therapy Evaluation Payor: [facility] MEDICARE REPLACEMENT / Plan: [facility] MEDICARE ADVANTAGE / Product Type: Medicare / Visit Number: 09/01 for KX Certification Period: 05/10/2025 - 08/08/25 Visit Diagnosis: Diagnosis and Associated Orders ICD-10-CM 1. Chronic pain of both shoulders M25.511 G89.29 M25.512 Date of Onset/Referral: 04/11/2025 Precautions/Barriers/Pertinent Medical History: PMH Orders: Eval and treat SUBJECTIVE Pt reports a decrease in her stamina, but reports doing exercises here and there. Pt states that the recent temperature chng has bothered the foot, wore compression socks when she got out for yazdanism. States she doesn't get out and about anymore due to lack of energy. OBJECTIVE Items left blank were not deemed necessary at time of assessment PREVIOUS SESSION: Observation: forward head and rounded shoulders Right [...] with palpation to: Bilateral: Deltoid Special Tests: Elsa Mora for impingement: Positive Painful Arc Sign for impingement: Positive ER Strength for impingement: Positive Neers Test for impingement: Positive TODAY'S INTERVENTION/CHARGES: Therapeutic Activity x 8 min Updated status, symptoms, function, progress, and goals NuStep seat @ 10, resistance @1 x 5 min Ambulated from exam room to gym & back at the end of session using provided FWRW & education as to why she needs to be using a walker due to fatigue Therapeutic Exercise x 20 min To improve pain, strength, ROM, and function Seated rows w/ blue band resistance @ chest height 2 sets x 10 reps Standing ER R then L w/ green band resistance & chest height w/ sit & water break in-between sets 2 sets x 10 reps Standing IR R then L w/ green band resistance @ chest height w/ sit break in- between sets; 2 sets x10 reps Seated shoulder flexion exercises using red weighted ball as resistance. 2 sets x 10reps; pt reports difficult to complete due to fatigue but no pain w/ motion & weight Neuromuscular Re-Education x 10 min The following interventions were performed to facilitate at least one of the following: -re-eduction of movement, balance coordination, kinesthetic sense, posture, and/or proprioception -muscle recruitment, sequeunce, timing, firing pattern, holding -performance/coordination Weight shifting through arms in slight plank position using Kevin-Bar to work on stabilization &weight loading through the arms, 2 sets x 10 ( progress to shoulder taps with alternating arms Scap retraction squeezes w/ elbows @ 90 degrees keeping tension on blue band for resistance 2 sets x 10 reps, working shoulder muscle activation & stabilization Home Program: Access Code: [email or web address] URL: [email or web address] Date: 05/11/2025 Prepared by: Katy Barajas Exercises [...] reps - 10s hold Timed Charges (Minutes): 84534 - Therapeutic Activities: 8 [address] - Neuromuscular Re-Education: 10 [address]268 - Therapeutic Exercise: 20 Timed Code Treatment Minutes: 38 Total Treatment Minutes: 38 ASSESSMENT Therapist Impression/Summary: Pt presents to session w/ daughter & no walker or adaptive device. Pt is using daughter's arm to stabilize when walking due to subjective reporting that the walker was inconvenient. Pt worked on JOSEPH shoulder stabilization & strengthening exercises to decrease pain and increase ability to participate in functional ADL's. Pt was able to work through exercises w/ minimal complaints of pain, but demonstrates deconditioning w/ fatiguing quickly. Still needs to be pressed for compliance in HEP. Pt continues to require physical therapy to increase shoulder strength & muscle endurance to complete functional ADLs. Goals/Functional Outcomes (to be met by end of therapy, noted in PLAN below): Patient will be independent with home exercise program for improved self management. Patient will improve QuickDASH score from 62% to less than 40% (MCID -8%, lower score indicates less disability) indicating improvement in general function. ADL's: Perform home management tasks with minimum limitation. Elton hair and face using affected extremity with minimum limitation. Dress, including don and doff shirt and pants with minimum limitation. Reach overhead to cabinet with minimum limitation. PLAN Recommendations/Plan for Next Visit: shoulder strengthening and ROM, NuStep, continue single arm loading & stabilizing for both shoulders. Shoulders taps, shoulder reaches Completed by Coleman Azevedo, Physical therapist medical research assistant student under the direct supervision of Katy Barajas PT, DPT Patient was treated and documentation was completed under my immediate supervision. I have reviewedand agree/approve all treatment and content Katy Barajas DPT ERSITY DEMONSTRATOR ERSITY DEMONSTRATOR documented in this encounter Plan of Treatment Upcoming Encounters Date Type Department Care Team (Late st Contact Info) Description 06/21/2025 3:00 PM UNIVERSITY DEMONSTRATOR Appointment [facility] [place] [id number] [place] [address] [place] [id number] [place] [address] 06/30/2025 1:45 PM UNIVERSITY DEMONSTRATOR Appointment [facility] [place] [address] [place] [address] [place] [address] [place] [address] 07/14/2025 3:15 PM UNIVERSITY DEMONSTRATOR Appointment [facility] [place] [address] [place] [address] [place] [address] [place] [address] Scheduled Referrals Name Type Priority Associated Diagnoses Orde r Schedule Physical Therapy Referral Routine Closed nondisplaced fracture of fifth metatarsal bone of right foot with routine healing, subsequent encounter Ordered: 04/13/2025 documented as of this encounter Visit Diagnoses Diagnosis Chronic pain of both shoulders- Primary Pain in joint, shoulder region documented in this encounter Care Teams Cnc Machine Programmer Relationship Specialty Start Date End Date Erick Vivas MD [address] [place] [address] PCP - General 10/14/10 documented as of this encounter
--- OUTSIDE RECORDS SUMMARY | 2025-05-16 15:00 | XMS_ITS | Encounter Summary ---
Author Organization [facility] Address [address] [place] [address]. [place] [address] Care Team Providers Care Before School Babysitter Name Role Phone Fredy Liang MD Unavailable Unavailable Nik Mackey MD Unavailable [phone] Coleman Davalos MD Unavailable [phone] Kristin Merino MD Primary Care Provider [phone] Abebe Hernandez MD Unavailable [phone] Chago Katz MD Unavailable [phone] Yemi Deleon PA-C Unavailable [phone] Reason for Visit * Reason Comments Imm/Inj Evenity injection. * Treatment and Therapy Plans (Routine) - Authorized Specialty Diagnoses / Procedures Referred By Contac t Referred To Contact Infusion Therapy Diagnoses Senile osteoporosis Procedures ZZC ROMOSOZUMAB-AQQG (EVENITY) PER MG Nate Beauchamp MD [address] [facility] [address] [place] [address] Phone: tel: fax: [facility] [address] [place] [address] Phone: tel: fax: Referral ID Status Reason Start Date Expiration Date V isits Requested Visits Authorized [id number] Authorized 08/09/2024 07/12/2025 99 99 Encounter Details Date Type Department Care Team (Latest Contact Info) Description 05/16/2025 3:00 PM SCRAP METAL COLLECTOR Infusion Therapy Visit [facility] [address] [place] [phone] Nate Beauchamp MD [address] [facility] [address] [place] [address] Senile osteoporosis (Primary Dx) Social History Tobacco Use Types [...] Answer Date Recorded Do you have housing? (Terry g is defined as stable permanent housing [...] on file Legal Sex Female 3:26 AM SCRAP METAL COLLECTOR Gender Identity Not on file Sexual Orientation Not on file documented as of this encounter Last Filed Vital Signs Vital Sign Reading Time Taken Comments Blood Pressure 134/88 05/16/2025 3:09 PM SCRAP METAL COLLECTOR Pulse 78 05/16/2025 3:09 PM SCRAP METAL COLLECTOR Temperature 36.4 C (97.6 F) 05/16/2025 3:09 PM SCRAP METAL COLLECTOR Respiratory Rate 22 05/16/2025 3:09 PM SCRAP METAL COLLECTOR Oxygen Saturation 94% 05/16/2025 3:09 PM SCRAP METAL COLLECTOR Inhaled Oxygen Concentration - - Weight 74.1 kg (163 lb 4.8 oz) 05/16/2025 3:09 P M SCRAP METAL COLLECTOR Height 167.6 cm (5' 5.98) 05/16/2025 3:09 PM CS T Body Mass Index 26.37 05/16/2025 3:09 PM SCRAP METAL COLLECTOR documented in this encounter Progress Notes * Neelam Sethi RN - 05/16/2025 3:00 PM CST Infusion Nursing Note: Juana Garza presents today for Evenity injection. Patient seen by provider today: No Driller Multiple Spindle present during visit today: Not Applicable. Note: Per patient, she is not taking vitamin D or Calcuim, due to her liver disease and possible kidney stone formation. Denies PR or stroke in the past year. Denies new or unusual thigh, hip or groin pain. Intravenous Access: No Intravenous access/labs at this visit. Treatment Conditions: Not Applicable. Post Infusion Assessment: Patient tolerated injection without incident in abdominal tissue. Discharge Plan: Discharge instructions reviewed with: Patient. Patient and/or family verbalized understanding of discharge instructions and all questions answered. AVS to patient via [employer]OB[employer]. Patient will return 06/13/25 for next appointment. Patient discharged in stable condition accompanied by: daughter. Departure Mode: Ambulatory. Neelam Sethi RN P METAL COLLECTOR documented in this encounter Plan of Treatment Upcoming Encounters Date Type Department Care Team (Late st Contact Info) Description 06/12/2025 1:20 PM SCRAP METAL COLLECTOR Ancillary Procedure [facility] [address] [place] [phone] Chago Katz MD [address] [place] [address] 06/13/2025 3:00 PM SCRAP METAL COLLECTOR Infusion Therapy Visit [address] [place] [phone] Nate Beauchamp MD [address] [facility] [address] [facility] [address] [place], [place] [address] 06/16/2025 11:15 AM SCRAP METAL COLLECTOR Virtual Visit [facility] [address] [facility] [address] [place] [phone] Chago Katz MD [address] [place], [place] [address] 07/11/2025 3:00 PM SCRAP METAL COLLECTOR Infusion Therapy Visit [facility] [address] [place] [address] [address] [place] [address] Nate Beauchamp MD [address] [place], [place] [address] 08/14/2025 12:30 PM SCRAP METAL COLLECTOR Office Visit [facility] [address] [facility] [address] [place] [address] Coleman Davalos MD [address] [facility] [address] [place] [address] documented as of this encounter Visit Diagnoses Diagnosis Senile osteoporosis- Primary documented in this encounter Administered Medications Inactive Administered Medications - up to 3 most recent administrations Medication Order MAR Action Action Date Dose Rate Site romosozumab-aqqg (EVENITY) injection 210 mg 210 mg, Subcutaneous, ONCE, On Thu05/16/25 at 1530, For 1 dose, The usual dose of 210 mg requires 2 single-use prefilled syringes (105 mg/1.17 mL each). Remove syringes from carton and allow to sit at room temperature for at least 30 minutes before administration. Do not gum machine operator any other way. Administer into the abdomen, thigh, or outer area of upper arm. Rotate injection sites; if the same injection site is chosen, do not inject into the same spot used for the first injection. Avoid areas of skin that are tender, bruised, red, hard, scarred, or with stretch day.Indications:Senile osteoporosis $Given 05/16/2025 3:19 PM SCRAP METAL COLLECTOR 210 mg Abdominal Tissue documented in this encounter Care Teams Before School Babysitter Relationship Specialty Start Date End Date Kristin Merino MD [address] [place] [address] PCP - General Internal Medicine 08/04/22 Fredy Liang MD Referring Physician Urology 02/02/14 Nik Mackey MD [facility] [address] [place] [id number] Referring Physician Ophthalmology 08/24/15 Coleman Davalos MD [address] [place] [id number] Ophthalmology 08/24/15 Abebe Hernandez MD [address] [place] [address] Urology 02/27/23 Chago Katz MD [address] [place] [address] Assigned Surgical Provider 03/28/23 Yemi Deleon PA-C [address] [place] [address] Assigned Neuroscience Provider 06/04/24 documented as of this encounter
--- OUTSIDE RECORDS SUMMARY | 2025-05-25 14:00 | XMS_ITS | Encounter Summary ---
Author Organization [facility] Address [address] [place] [address] Care Team Providers Care Brilliandeer Lopper Name Role Phone Erick Vivas MD Primary Care Provider [phone] Reason for Visit * Reason Comments Foot Problem * Therapies (Routine) - Authorized Specialty Diagnoses / Procedures Referred By Sheree t Referred To Contact Physical Therapy Diagnoses [place] in [place] [address] [place] [address] Phone: tel: fax: [facility] [address] [address] Phone: tel: fax: Referral ID Status Reason Start Date Expiration Date V isits Requested Visits Authorized [id number] Authorized 05/01/2025 07/24/2025 14 14 Encounter Details Date Type Department Care Team (Late st Contact Info) Description 05/25/2025 2:00 PM COMPRESSOR STATIONS SUPERINTENDENT Therapy [facility] [address] [phone] [place] [address] [place] [address] Right foot pain (Primary Dx) Social History Tobacco Use Types Packs/Day Years Used Date Smoking Tobacco: Never Comments Unknown Sex and Gender Information Value Date Recorded Sex Assigned at Not on file Legal Sex Female 6:20 PM CDT Gender Identity Not on file Sexual Orientation Not on file documented as of this encounter Progress Notes * Katy Barajas, PT - 05/25/2025 2:00 PM CST Physical Therapy follow up Payor: [facility] MED[facility] REPLACEMENT / Plan: [facility] MEDICARE ADVANTAGE / Product Type: Medicare / Visit Number: 09/01 for KX Certification Period: 05/10/2025 - 08/08/25 Visit Diagnosis: Diagnosis and Associated Orders ICD-10-CM 1. Right foot pain M79.671 Date of Onset/Referral: 04/11/2025 Precautions/Barriers/Pertinent Medical History: PMH Orders: Eval and treat SUBJECTIVE Pt is stating she feels like she is having some pretty good days. No pain in the ankles, but has had some swelling. She reports that she hasn't been using the walker in about 2 weeks w/ no loss of balance. Reports being HEP compliant and feels the feet exercises are pretty self explanatory but her shoulder exercises she doesn't feel like she is doing right. OBJECTIVE OBSERVATIONS: O2% Pre-Exercise: 91 O2% Post-Exercise: 87 Reports some dizziness at baseline TODAY'S INTERVENTION/CHARGES: Therapeutic Activity x 8 min Updated status, symptoms, function, progress, and goals Warm-up on NuStep to increase tolerance w/ activity x5min level 1 Neuromuscular Re-Education x 30 min The following interventions were performed to facilitate at least one of the following: -re-eduction of movement, balance coordination, kinesthetic sense, posture, and/or proprioception -muscle recruitment, sequeunce, timing, firing pattern, holding -performance/coordination Performed informal DGI w/ patient completing gait on full lengths of the turf. *no walker Vertical Head Turns Horizontal Head Turns Speed Changes Change of Direction Cone Weaving Stepping Over Changing Surfaces Pt demonstrates an increased falls risk w/ community ambulation and is recommended to use a FWW in the community Increased difficulty with head turns and stepping over objects Step-Ups 1 set x 5 reps leading w/ the L LE *noted pt hesitation and vocalizing a need for something to holdonto* 1 set x 5 reps leading w/ the R LE * noted less hesitation and no need for anything to hold onto; represents increased weakness and confidence in the L LE Single Leg Stance L unable to perform for greater than 5 seconds w/ hand hold assist R unable to perform for greater than 5 seconds w/ hand hold assist Forward Lunge w/ single ALUM PLANT SUPERVISOR to work on balance completing 1 set x 5 reps on the L then alternating to the R. Home Program: Access Code: [email or web address] URL: [email or web address] Date: 05/01/2025 Prepared by: Katy Barajas Exercises [...] reps - 10s hold Timed Charges (Minutes): 26644 - Therapeutic Activities: 8 82917 - Neuromuscular Re-Education: 30 Timed Code Treatment Minutes: 38 Total Treatment Minutes: 38 ASSESSMENT Therapist Impression/Patient Response: Pt presents to PT session w/ subjective reporting of discontinuing the use of her walker due to doing much better. Spent the session challenging & assessingpt balance w/ gait in community simulated settings and recommend the pt utilize her walker outside of the home for safety and to decrease falls risk with community ambulation. Pt presented mixed feeli ngs towards suggestion but acknowledged the reason for the recommendation. Patient will continue tobenefit from skilled PT in order to address above mentioned impairments and improve daily functional outcomes. Goals/Functional Outcomes (to be met by end [...] community access. PLAN Recommendations/Plan for Next Visit: Single Leg Stance, Multi-Directional Stepping, Side-Stepping, Transferring on and off unstable surfaces, mini-squats Completed by Coleman Azevedo, Physical therapist geological survey field assistant student under the direct supervision of Katy Barajas, PT, DPT Patient was treated and documentation was completed under my immediate supervision. I have reviewedand agree/approve all treatment and content Katy Barajas DPT RESSOR STATIONS SUPERINTENDENT RESSOR STATIONS SUPERINTENDENT RESSOR STATIONS SUPERINTENDENT documented in this encounter Plan of Treatment Upcoming Encounters Date Type Department Care Team (Late st Contact Info) Description 06/21/2025 3:00 PM COMPRESSOR STATIONS SUPERINTENDENT Appointment [facility] [address] [address] [place] [address] [place] [address] 06/30/2025 1:45 PM COMPRESSOR STATIONS SUPERINTENDENT Appointment [facility] [place] [id number] [place] [address] [place] [address] [place] [address] 07/14/2025 3:15 PM COMPRESSOR STATIONS SUPERINTENDENT Appointment [facility] [place] [id number] [place] [address] [place] [address] [place] [address] documented as of this encounter Visit Diagnoses Diagnosis Right foot pain- Primary Pain in limb documented in this encounter Care Teams Brilliandeer Lopper Relationship Specialty Start Date End Date Erick Vivas MD [address] [place] [address] PCP - General 10/14/10 documented as of this encounter
--- OUTSIDE RECORDS SUMMARY | 2025-06-06 15:19 | XMS_ITS | CCD ---
Author Name Interface, [id number] lity Address [address] [facility] [address] [address] [facility] Address [address] [facility] [address] [address] Care Team Providers Care Documentation Coordinator Name Role Phone Skyler Magana Unavailable Unavailable Allergies and Adverse Reactions Medication/Group Name Reaction Severity Date Dust mites 02/23/2024 epinephrine 02/23/2024 mold 02/23/2024 gluten 02/23/2024 Care Plan Date Type Value 10/23/2024 LAB_ORDER CMP 10/23/2024 LAB_ORDER CBC w/ auto diff 10/23/2024 LAB_ORDER CT neck soft tis ishmael w/ contrast 10/23/2024 LAB_ORDER CT orbit, sella w/ contrast Reason for Visit LAB 15 MIN Functional Status Date Name/Question Score/Answer 09/02/2016 ECOG performance status - grade 0 0 09/14/2018 ECOG performance status - grade 0 0 09/14/2018 Karnofsky performance status 100 09/15/2017 Karnofsky performance status 100 11/02/2015 ECOG performance status - grade 0 0 11/13/2015 ECOG performance status - grade 0 0 12/02/2016 ECOG performance status - grade 0 0 12/15/2017 Karnofsky performance status 100 12/28/2018 ECOG performance status - grade 0 0 12/28/2018 Karnofsky performance status 100 01/05/2018 Karnofsky performance status 100 03/03/2017 ECOG performance status - grade 0 0 03/19/2018 ECOG performance status - grade 0 0 03/19/2018 Karnofsky performance status 100 03/21/2016 ECOG performance status - grade 0 0 03/23/2019 ECOG performance status - grade 0 0 03/23/2019 Karnofsky performance status 100 04/29/2016 ECOG performance status - grade 0 0 06/18/2018 ECOG performance status - grade 0 0 06/18/2018 Karnofsky performance status 100 08/22/2019 Karnofsky performance status 100 Diagnostic Results Date Type Test Units Lower Limit Upper Limit Result Flag Comments Status Ordered By Specimen Source Lab Address 08/15 [facility] other lab See sunglass clip attacher d Medications Date Name Route Dose Frequency Instructions Start Date End Date Status Fill Status Indication 05/01 Vitamin K Oral PO 1.0 TABLE T(S) daily 03/23 inactive 05/01 Miscella neous Drug 1 PO 1.0 CAPSU LE(S) as directed D-Mannose 03/23 inactive 05/01 Gabapent in Oral PO 1.0 CAPSU LE(S) daily 03/23 inactive 05/01 Miscella neous Drug PO 1.0 CAPSU LE(S) daily 03/23 inactive 05/01 Thyroid (Pork) Oral PO 0.5 TABLE T(S) daily 2015 active Problems Diagnosis Status Date of Diagnosis Resolution Date Body mass index (BMI) 27.0-27.9, adult Inactive Body mass index (BMI) 28.0-28.9, adult Inactive Body mass index (BMI) 26.0-26.9, adult Inactive 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
--- OUTSIDE RECORDS SUMMARY | 2025-06-06 15:19 | XMS_ITS | Encounter Summary ---
Author Organization [facility] Address [address] [place] [address]. [place] [address] Care Team Providers Care Claims Correspondence Clerk Name Role Phone Fredy Liang MD Unavailable Unavailable Nik Mackey MD Unavailable [phone] Coleman Davalos MD Unavailable [phone] Kristin Merino MD Primary Care Provider [phone] Abebe Hernandez MD Unavailable [phone] Chago Katz MD Unavailable [phone] Yemi Deleon PA-C Unavailable [phone] Encounter Details Date Type Department Care Team (Late st Contact Info) Description 05/15/2025 Orders Only [facility] [address] [address] Nate Beauchamp MD [address] [address] Social History Tobacco Use Types Packs/Day Years [...] Date Recorded Do you have housing? (Terry hernández is defined as stable permanent housing and does not include staying outside in a car, in a tent, in an abandoned building, in an overnight senior living, or couch-surfing.) Yes 11/22/2024 Are you worried [...] on file Legal Sex Female 3:26 AM [employer] Gender Identity Not on file Sexual Orientation Not on file documented as of this encounter Plan of Treatment Upcoming Encounters Date Type Department Care Team (Late st Contact Info) Description 06/12/2025 1:20 PM DETAILER PHARMACEUTICALS Ancillary Procedure [facility] [address] [place] [address] Chago Katz MD [address] [place] [address] 06/13/2025 3:00 PM [employer]IC[employer] Infusion Therapy Visit [facility] [address] [facility] [address] [place] [phone] Nate Beauchamp MD [address] [place] [address] 06/16/2025 11:15 AM [employer] Virtual Visit [facility] [place] [address] [facility] [address] [place] [address] Chago Katz MD [address] [place], [place] [address] 07/11/2025 3:00 PM [employer]IC[employer] Infusion Therapy Visit [facility] [address] [place] [address] [place] [address] Nate Beauchamp MD [address] [facility] [address] [place] [address] 08/14/2025 12:30 PM [employer] Office Visit [facility] - [address] [place] [address] Coleman Davalos MD [address] [id number] documented as of this encounter Visit Diagnoses Not on filedocumented in this encounter Care Teams Claims Correspondence Clerk Relationship Specialty Start Date End Date Kristin Merino MD [address] [place] [address] PCP - General Internal Medicine 08/04/22 Fredy Liang MD Referring Physician Urology 02/02/14 Nik Mackey MD [facility] [address] [place] [address] Referring Physician Ophthalmology 08/24/15 Coleman Davalos MD [address] [facility] [address] [place], [place] [address] Ophthalmology 08/24/15 Abebe Hernandez MD [address] [place] [address] Urology 02/27/23 Chago Katz MD [address] [place] [address] Assigned Surgical Provider 03/28/23 Yemi Deleon PA-C [address] [place] [id number] Assigned Neuroscience Provider 06/04/24 documented as of this encounter
--- OUTSIDE RECORDS SUMMARY | 2025-06-06 15:19 | XMS_ITS | Clinical Summary ---
Author Organization [facility] Address [address] [place] [address] Care Team Providers Care Paperboard Boxes Estimator Name Role Phone Erick Vivas MD Primary Care Provider [phone] Source Comments You are receiving this document as you are listed as the primary care provider,follow-up provider, or the patient has been referred to you for consultation.This is in compliance with the Medicare and[facility] Hospital[facility] EHR Incentive Program,which states Providers who transition their patient to another setting of careor provider of care or refers their patient to another provider of care shouldprovide summary care record for each transition of care or referral. [facility] Allergies Active Allergy Reactions Criticality Noted Date Comments Calcium Carbonate Other, see comments 1 PN: due to kidney stones Iodinated Contrast Media Unknown 03/02/2025 Epinephrine 11/08/2009 PN: LW Reaction: TACHYCARDIA Vitamin D Analogs Other, see comments 1 PN: due to kidney stones Medications thyroid (ARMOUR THYROID) 60 MG tablet Take 1 tablet by mouth daily (every 24 hours). LW Addl Instr:Indicated for: Hypothyroidism 90 3 0 Active gabapentin (AKA NEURONTIN) 300 MG capsule Take 1 capsule by mouth nightly. LW Comment:For Vaginal/vulvar pain 90 3 0 Active zolpidem (AKA AMBIEN) 10 MG tablet Take 0.5 tablets by mouth at bedtime as needed. LW Addl Instr:Take for a maximum of 7-10 days. Indicated for: Sleep 10 0 Active hydrocortisone (AKA CORTEF) 5 MG tablet Take 0.5 tablets by mouth daily (every 24 hours). 0 Active gabapentin (AKA NEURONTIN) 300 MG capsule Take 1 capsule by mouth nightly. LW Comment:For Vaginal/vulvar pain 90 3 1 Active unknown medication Indications: PN: 0 Active DRUG NOT IN COMPUTER Place 0.2 Doses vaginally three times a week. 1 Active POTASSIUM CITRATE OR Take 1 tablet by mouth 2 times daily. 1 Active gabapentin (AKA NEURONTIN) 100 MG capsule Take 1 capsule by mouth 3 times daily. 270 capsule 3 1 Active Encounters Date Type Department Care Team Description 05/25/2025 2:00 PM SPEECH CORRECTION ASSISTANT Therapy [facility] [address] [address] Katy Barajas, PT Right foot pain (Primary Dx) 05/15/2025 2:45 PM SPEECH CORRECTION ASSISTANT Therapy [facility] [address] [address] Katy Barajas, PT Chronic pain of both shoulders (Primary Dx) 05/11/2025 4:00 PM CDT Ancillary Procedure [place] [address] [place] [address] Barry Antonio MD Closed nondisplaced fracture of fifth metatarsal bone of right foot with routine healing, subsequent encounter 05/11/2025 3:30 PM CDT Office Visit [facility] [address] [address] [address] [place] [address] Barry Antonio MD Closed nondisplaced fracture of fifth metatarsal bone of right foot with routine healing, subsequent encounter (Primary Dx) 05/10/2025 1:30 PM CDT Therapy [facility] Physical [address] [address] Katy Barajas, PT Chronic pain of both shoulders (Primary Dx) 05/01/2025 2:00 PM CDT Therapy [facility] [address] [address] Katy Barajas, PT Right foot pain (Primary Dx) 04/13/2025 3:50 PM CDT Ancillary Procedure [facility] [address] Radiology [address] [place] [address] Barry Antonio MD Closed nondisplaced fracture of fifth metatarsal bone of right foot, initial encounter 04/13/2025 3:30 PM CDT Office Visit [facility] [address] [address] [address] [place] [address] Barry Antonio MD Closed nondisplaced fracture of fifth metatarsal bone of right foot with routine healing, subsequent encounter (Primary Dx) 03/23/2025 5:15 PM CDT Ancillary Procedure [facility] [address] Ultrasound [address] [place] [address] Barry Antonio MD Closed nondisplaced fracture of fifth metatarsal bone of right foot with routine healing, subsequent encounter; Left leg swelling 03/23/2025 3:55 PM CDT Ancillary Procedure [facility] [address] [address] [address] [place] [address] Barry Antonio MD Closed nondisplaced fracture of fifth metatarsal bone of right foot, initial encounter 03/23/2025 3:30 PM CDT Office Visit [facility] [address] [address] [address] [place] [address] Barry Antonio MD Closed nondisplaced fracture of fifth metatarsal bone of right foot with routine healing, subsequent encounter (Primary Dx); Left leg swelling 03/22/2025 Notes/Orders [facility] 3850 Internal Medicine [address] [facility] [address] Len Campbell PA-C Asymptomatic menopausal state 03/06/2025 Telephone [facility] [place] [address] [address] [address] [place] [address] Barry Antonio MD Questions from Last 3 Months Social History Tobacco Use Types Packs/Day Years Used Date Smoking Tobacco: Never Comments Unknown Sex and Gender Information Value Date Recorded Sex Assigned at Not on file Legal Sex Female 6:20 PM CDT Gender Identity Not on file Sexual Orientation Not on file Last Filed Vital Signs Vital Sign Reading Time Taken Comments Blood Pressure 119/72 05/12/2011 4:22 PM CDT Pulse 50 05/12/2011 4:22 PM CDT Temperature 36.8 C (98.3 F) 05/11/2025 3:52 PM CDT Respiratory Rate - - Oxygen Saturation - - Inhaled Oxygen Concentration - - Weight 75.9 kg (167 lb 6.3 oz) 11/08/2009 9:44 A M CDT C: 75.9kg Height - - Body Mass Index - - Plan of Treatment Upcoming Encounters Date Type Department Care Team (Late st Contact Info) Description 06/21/2025 3:00 PM SPEECH CORRECTION ASSISTANT Appointment [facility] [address] [address] [place] [address] [place] [address] 06/30/2025 1:45 PM SPEECH CORRECTION ASSISTANT Appointment [facility] [place] [address] [place] [address] [place] [address] [place] [address] 07/14/2025 3:15 PM SPEECH CORRECTION ASSISTANT Appointment [facility] [address] [address] [place] [address] [place] [address] Health Maintenance Due Date Last Done Comments Colon Cancer Screening Plan Due 1954 Hep C Screening (Preventive Services) 1955 Mammogram 1955 Cholesterol 1999 Pneumococcal Vaccine 50+ Yrs (1 of 1 - PCV) 2004 Zoster/Shingles Vaccine (1 of 2) 2004 Dexa 2019 DTaP/Tdap/Td Vaccine (2 - Tdap) 11/30/2023 4 Medicare Annual Wellness Visit 07/13/2024 COVID-19 Vaccine (1 - 2024-2 6 season) 2025 Influenza Vaccine (#1) 2025 RSV Vaccine (1 - 1-dose 75+ series) 2029 HepA Vaccine Aged Out No longer eligi ble based on patient's age to complete this topic HepB Vaccine Aged Out No longer eligi ble based on patient's age to complete this topic Hib Vaccine Aged Out No longer eligi ble based on patient's age to complete this topic IPV (Polio) Vaccine Aged Out No longe r eligible based on patient's age to complete this topic MCV4 Vaccine Aged Out No longer eligi ble based on patient's age to complete this topic Meningococcal B Vaccine Aged Out No l onger eligible based on patient's age to complete this topic Procedures Procedure Name Priority Date/Time Associated Diagnosis Comments XR FOOT RT 3+ VIEWS Routine 05/11/2025 4:11 PM CDT Closed nondisplaced fracture of fifth metatarsal bone of right foot with routine healing, subsequent encounter XR FOOT RT 3+ VIEWS Routine 04/13/2025 3:57 PM CDT Closed nondisplaced fracture of fifth metatarsal bone of right foot, initial encounter US VENOUS LEFT LOWER EXTREM DOPPLER STAT 03/23/2025 5:14 PM CDT Closed nondisplaced fracture of fifth metatarsal bone of right foot with routine healing, subsequent encounter Left leg swelling XR FOOT RT 3+ VIEWS Routine 03/23/2025 4:12 PM CDT Closed nondisplaced fracture of fifth metatarsal bone of right foot, initial encounter from Last 3 Months Results * XR Foot Rt 3+ Views (05/11/2025 4:11 PM CDT) Only the most recent of3 resultswithin the time period is included. Anatomical Region Laterality Modality Lower Extremity, Foot [...] Barry Antonio MD RAD GD Final Result * US VENOUS LEFT LOWER EXTREM DOPPLER (03/23/2025 5:14 PM CDT) Anatomical Region Laterality Modality Vascular, Leg Ultrasound Impressions 03/23/2025 5:22 PM CDT 1. No evidence of deep venous thrombosis. Small calf vein thrombosis cannot be completely excluded by this technique. 2. Left-sided Rankin's cyst. Signed by: Noe Schneider 03/23/2025 5:22 PM Narrative 03/23/2025 5:22 PM CDT EXAM: US VENOUS LEFT LOWER EXTREM DOPPLER INDICATION: calf pain COMPARISON: None. TECHNIQUE: The venous system of the left lower extremity was visualized using color-flow Doppler technique. FINDINGS: The common femoral, proximal deep femoral, femoral, popliteal, and visualized portions of the posterior tibial and peroneal veins show normal compressibility, color flow, and response to augmentation. The great saphenous vein compresses normally. RANKIN'S CYST: Yes, measuring 1.3 x 1.2 x 0.3 cm. Procedure Note Noe Schneider MD - 03/23/2025 EXAM: US VENOUS LEFT LOWER EXTREM DOPPLER INDICATION: calf pain COMPARISON: None. TECHNIQUE: The venous system of the left lower extremity was visualizedusing color-flow Doppler technique. FINDINGS: The common femoral, proximal deep femoral, femoral, popliteal, andvisualized portions of the posterior tibial and peroneal veins show normalcompressibility, color flow, and response to augmentation. The greatsaphenous vein compresses normally. RANKIN'S CYST: Yes, measuring 1.3 x 1.2 x 0.3 cm. IMPRESSION 1. No evidence of deep venous thrombosis. Small calf vein thrombosiscannot be completely excluded by this technique. 2. Left-sided Rankin's cyst. Signed by: Noe Schneider 03/23/2025 5:22 PM us Barry Antonio MD [facility] US Final Result from Last 3 Months Insurance [facility] [place] [address] Care Teams Paperboard Boxes Estimator Relationship Specialty Start Date End Date Erick Vivas MD [address] [place] [address] PCP - General 10/14/10
--- OUTSIDE RECORDS SUMMARY | 2025-06-06 15:19 | XMS_ITS | Clinical Summary ---
Author Organization [facility] Address [address] [place] [address] Care Team Providers Care Electrical Logging Engineer Name Role Phone Fredy Liang MD Unavailable Unavailable Nik Mackey MD Unavailable [phone] Coleman Davalos MD Unavailable [phone] Kristin Merino MD Primary Care Provider [phone] Abebe Hernandez MD Unavailable [phone] Chago Katz MD Unavailable [phone] Yemi Deleon PA-C Unavailable + [phone] Allergies Active Allergy Reactions Criticality Noted Date Comments Blood-Group Specific Substance Other (See Comments) 10/21/2024 Patient has Anti-M antibody. Blood products may be delayed. Draw patient 24 hours prior to transfusion. For [facility] testing, draw one red top and two purple top tubes for all Type and Screen orders. Dust Mites Unknown,Other (See Comments) 02/11/2011 Epinephrine Other (See Comments) 10/02/2011 PANIC ATTACK Ethanol Other (See Comments) 10/08/2015 Especially cleaning products but could be air fresheners alsoPatient feels like she cannot breath. Gadolinium Muscle Pain (Myalgia) Medium 03/25/2024 Weakness, pain Gluten Meal Unknown 07/23/2010 Iron Other (See Comments) 11/02/2018 Mold Itching 10/02/2011 No Clinical Screening - Other Allergy Other (See Comments) 10/08/2015 Especially cleaning products but could be air fresheners alsoPatient feels like she cannot breath. Other (Do Not Use) Other (See Comments) 05/16/2016 Especially cleaning products but could be air fresheners alsoPatient feels like she cannot breath. Polyvinyl Alcohol Other (See Comments) 12/24/2015 Swelling around eye, itching, discharge, red Swelling around eye, itching, discharge, red Titanium Dermatitis,Itching, Other (See Comments) 10/11/2018 Dental implant issues Medications THYROID PO Take 45 mg by mouth daily. Natural/compoun ded 12/16/19 17 Active Continuous Glucose Sensor (FREESTYLE DASHA 3 SENSOR) MISC USE DIRECTED AND CHANGE SENSOR EVERY 14 DAYS 10/24/19 24 Active tamsulosin (FLOMAX) 0.4 MG capsuleIndications: Hydronephrosis with ureteropelvic junction (UPJ) obstruction Take 1 capsule (0.4 mg) by mouth daily. 30 capsule 09/30/19 25 Active Additional Information Patient not taking.Reported on 03/08/2025 acetaminophen (TYLENOL) 325 MG tabletIndications:U rinary tract infection without hematuria, site unspecified Take 3 tablets (975 mg) by mouth every 8 hours as needed for mild pain, fever or headaches. 11/30/19 25 Active lactobacillus rhamnosus, GG, (CULTURELL) capsuleIndications: Urinary tract infection without hematuria, site unspecified Take 1 capsule by mouth 2 times daily. 11/30/19 25 Active Additional Information Patient not taking.Reported on 03/08/2025 mirabegron (MYRBETRIQ) 25 MG 24 hr tabletIndications:U rinary tract infection without hematuria, site unspecified Take 1 tablet (25 mg) by mouth daily. 12/01/19 25 Active Additional Information Patient not taking.Reported on 03/08/2025 furosemide (LASIX) 20 MG tabletIndications:O ther cirrhosis of liver (H) Take 1 tablet (20 mg) by mouth daily. 11/30/19 25 Active Additional Information Patient not taking.Reported on 03/08/2025 metFORMIN (GLUCOPHAGE) 500 MG tabletIndications:T ype 2 diabetes mellitus with hyperglycemia, without long-term current use of insulin (H) Take 1 tablet (500 mg) by mouth 2 times daily (with meals). 11/30/19 25 Active Additional Information Patient not taking.Reported on 03/08/2025 ondansetron (ZOFRAN ODT) 4 MG ODT tabIndications:Recu rrent nephrolithiasis Take 1 tablet (4 mg) by mouth every 6 hours as needed for nausea. 12/05/19 Active Additional Information Patient not taking.Reported on 03/08/2025 nitroFURantoin macrocrystal-monohy drate (MACROBID) 100 MG capsuleIndications: Nephrolithiasis Take 1 capsule (100 mg) by mouth 2 times daily. 6 capsule 12/08/19 Active Additional Information Patient not taking.Reported on 03/08/2025 Active Problems Problem Noted Date Diagnosed Date Hyponatremia 11/22/2024 Non-specific colitis 11/22/2024 Urinary tract infection without hematuria, site unspecified 11/22/2024 Sepsis, due to unspecified o rganism, unspecified whether acute organ dysfunction present 11/22/2024 Generalized weakness 09/27/2024 Left flank pain 09/27/2024 Acute cystitis without hematuria 09/27/2024 Status post placement of ureteral stent 09/28/19 Ureteral stone 09/20/2024 Hydronephrosis with ureterop elvic junction (UPJ) obstruction 09/20/2024 Senile osteoporosis 08/09/2024 Pancreatic cyst 03/25/2024 Pulmonary nodule 03/25/2024 Renal cyst 03/25/2024 History of kidney stones 03/25/2024 Closed wedge compression fra cture of T10 vertebra, initial encounter 03/25/2024 Thoracic compression fracture, closed, initial e ncounter 03/25/2024 Hereditary hemochromatosis 04/29/2017 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 05/30/2016 Hypothyroidism 03/21/2014 Recurrent nephrolithiasis 03/21/2014 Calcium oxalate kidney stones 03/21/2014 Cystic kidney disease 03/21/2014 Overview (03/21/2014): Acquired though one CT reports possible MSK at [facility] 2010 Hypovitaminosis D 03/21/2014 Hyperglycemia 03/21/2014 Resolved Problems Problem Noted Date Diagnosed Date Resolved Date Weakness 11/29/2007 08/09/2008 Lyme disease 11/29/2007 08/09/2008 Fibromyalgia 11/29/2007 08/09/2008 Encounters Date Type Department Care Team Description 05/16/2025 3:00 PM STORAGE GARAGE MANAGER Infusion Therapy Visit [address] [place] [address] Nate Beauchamp MD Senile osteoporosis (Primary Dx) 05/16/2025 Travel 05/15/2025 Orders Only [facility] [place] [address] [phone] Nate Beauchamp MD 04/27/2025 10:55 AM CDT - 04/27/2025 11:59 PM CDT Hospital Encounter [facility] [address] [place] [phone] Dorinda Valentin PA-C [place], Krystal Liane, [facility] Discharge Disposition: Home or Self Care 04/27/2025 10:53 AM CDT - 04/27/2025 10:54 AM CDT Hospital Encounter [facility] [address] [facility] [address] [place] [phone] Dorinda Valentin, EWA 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); Decreased appetite; History of choking; Pancreatic lesion; Essential (primary) hypertension Discharge Disposition: Home or Self Care 04/27/2025 Travel 04/11/2025 2:30 PM CDT Infusion Therapy Visit [facility] [id number] [place] [address] [address] [place] [phone] Nate Beauchamp MD Senile osteoporosis (Primary Dx) 04/11/2025 Travel 03/24/2025 Telephone [facility] [place] [address] [place] [phone] Chago Katz MD 03/24/2025 Orders Only [facility] [place] [address] [place] [phone] Chago Katz MD Hematuria (Primary Dx) 03/21/2025 Transcribe Orders GENERIC EXTERNAL DATA DEPARTMENT Dorinda Valentin PA-C Dysphagia, unspecified type (Primary Dx) 03/16/2025 3:30 PM CDT Virtual Visit [facility] [place] [address] [place] [phone] Chago Katz MD Nephrolithiasis (Primary Dx) 03/08/2025 12:00 PM CDT Infusion Therapy Visit [facility] [address] [place] [address] [place] [address] Nate Beauchamp MD Senile osteoporosis (Primary Dx) 03/08/2025 Travel from Last 3 Months Immunizations Immunization Administration Dates Next Due DT (PEDS <7y) 11/29/2013 Family History Medical History Relation Comments Heart Disease Father Hypertension Father Kidney Disease Father Other - See Comments Father Glaucoma Maternal Aunt Cerebrovascular Disease Maternal Grandfather Heart Disease Maternal Grandfather Other - See Comments Maternal Grandfather Alzheimer Disease Maternal Grandmother Glaucoma Maternal Grandmother Heart Disease Maternal Grandmother Hypertension Maternal Grandmother Kidney Disease Maternal Grandmother Osteoporosis Maternal Grandmother Thyroid Disease Maternal Grandmother Osteoporosis Mother Thyroid Disease Mother Family History Negative Other 2 Cancer Other 3 Cardiovascular Paternal Grandfather Cerebrovascular Disease Paternal Grandfather Heart Disease Paternal Grandfather Other - See Comments Paternal Grandmother Hypertension Sister Diabetes Son 1 Alcohol/Drug Son 2 Diabetes Son 2 Macular Degeneration No family hx of Relation Status Comments Father Alive Maternal Aunt Maternal Grandfather Alive Maternal Grandmother Alive Mother Alive Other 1 Other Other 2 Other 3 Paternal Grandfather Alive Paternal Grandmother Sister Alive Son 1 Son 2 Alive Social History Tobacco Use Types Packs/Day Years Used Date Smoking Tobacco: Never Passive Smoke Exposure: Never Smokeless Tobacco: Never Tobacco Cessation:Counseling Given: Not Answered Alcohol Use Standard Drinks/Week Comments No 0 [...] an abandoned building, in an overnight senior care, or couch-surfing.) Yes 11/22/2024 Are you worried [...] on file Legal Sex Female 3:26 AM STORAGE GARAGE MANAGER Gender Identity Not on file Sexual Orientation Not on file Last Filed Vital Signs Vital Sign Reading Time Taken Comments Blood Pressure 134/88 05/16/2025 3:09 PM STORAGE GARAGE MANAGER Pulse 78 05/16/2025 3:09 PM STORAGE GARAGE MANAGER Temperature 36.4 C (97.6 F) 05/16/2025 3:09 PM STORAGE GARAGE MANAGER Respiratory Rate 22 05/16/2025 3:09 PM STORAGE GARAGE MANAGER Oxygen Saturation 94% 05/16/2025 3:09 PM STORAGE GARAGE MANAGER Inhaled Oxygen Concentration - - Weight 74.1 kg (163 lb 4.8 oz) 05/16/2025 3:09 P M STORAGE GARAGE MANAGER Height 167.6 cm (5' 5.98) 05/16/2025 3:09 PM CS T Body Mass Index 26.37 05/16/2025 3:09 PM STORAGE GARAGE MANAGER Plan of Treatment Upcoming Encounters Date Type Department Care Team (Late st Contact Info) Description 06/12/2025 1:20 PM STORAGE GARAGE MANAGER Ancillary Procedure [facility] [address] [place] [address] [place] [address] Chago Katz MD [address] [place], [place] [phone] 06/13/2025 3:00 PM STORAGE GARAGE MANAGER Infusion Therapy Visit [address] [place] [phone] Nate Beauchamp MD [address] [facility] [address] [facility] [address] [place], [place] [phone] 06/16/2025 11:15 AM STORAGE GARAGE MANAGER Virtual Visit [facility] [address] [place] [phone] Chago Katz MD [address] [place] [address] 07/11/2025 3:00 PM STORAGE GARAGE MANAGER Infusion Therapy Visit [address] [place] [phone] Nate Beauchamp MD [address] [place], [place] [phone] 08/14/2025 12:30 PM STORAGE GARAGE MANAGER Office Visit [facility] [address] [facility] 9[address] Clin [address] [place] [phone] Coleman Davalos MD [address] [facility] [address] [place], [place] [phone] Health Maintenance Due Date Last Done Comments ADVANCE CARE PLANNING 1955 ANNUAL REVIEW OF HM ORDERS 1954 CT COLONOGRAPHY 1954 DIABETIC FOOT EXAM 1954 FIT 1954 FLEX SIG 1954 MICROALBUMIN 1954 sDNA (Cologuard) 1954 COVID-19 VACCINE (#1) 1959 COLONOSCOPY 1964 COLORECTAL CANCER SCREENING 1964 HEPATITIS A VACCINE (1 of 2 - Risk 2-dose series) 1973 PNEUMOCOCCAL VACCINE 50+ YEARS (1 of 2 - PCV) 1973 ZOSTER VACCINE (1 of 2) 1973 DTAP/TDAP/TD VACCINE (1 - Tdap) 1979 RSV VACCINE (1 - Risk 50-74 years 1-dose series) 2004 HEPATITIS B VACCINE (1 of 3 - Risk 3-dose series) 2014 MAMMO SCREENING 03/22/2020 03/22/2018 (Decl ined), 12/21/2014, 07/18/2011, Additional history exists MEDICARE ANNUAL WELLNESS VISIT 10/22/2021 10/22/2020 EYE EXAM 08/10/2024 08/10/2023, 04/13, 04/18/2022, Additional history exists A1C 02/23/2025 11/23/2024, 09/10, 11/13/2022, Additional history exists INFLUENZA VACCINE (#1) 2025 FALL RISK ASSESSMENT 08/08/2025 08/08/2024 LIPID 08/15/2025 08/15/2024 TSH W/FREE T4 REFLEX 11/23/2025 11/23/2024, 08/15/2024, 11/13/2022, Additional history exists BMP 01/12/2026 01/12/2025, 11/12, 12/02/2024, Additional history exists DEXA 05/11/2039 05/11/2024, 04/12, 01/17/2019, Additional history exists HEPATITIS C SCREENING Completed 09/09/2016 PHQ-2 (once per calendar year) Completed 08/08/2024, 05/24/2024, 05/16/2016 HPV VACCINE (No Doses Required) Completed MENINGITIS VACCINE Aged Out No longer eligible based on patient's age to complete this topic Medical Devices Implanted Type Area Space Operations Officer Device Identifier Shelf Expiration Date Model / Serial / Lot Stent Ureteral Polaris Ultra [id number] - [id number] Implanted:Qty : 1 on 03/27/2023 by Chago Katz MD at [facility] Stent Right: Abdomen [employer] [id number] 01/02/2026 [id number] 30 / / [id number] Stent Ureteral Polaris Ultra [id number] - [id number] Implanted:Qty : 1 on 11/27/2023 by Chago Katz MD at [facility] Stent Left: Ureter [employer] 08/10/2026 [id number] 20 / / [id number] Stent Ureteral Polaris Ultra [id number] - [id number] Implanted:Qty : 1 on 03/27/2024 by Jignesh Cervantes MD at [facility] Stent Left: Ureter [employer] 11/15/2026 [id number] 20 / / [id number] [employer] Ureteral Stent Implanted:Qty : 1 on 09/28/2024 by Chago Katz MD at [facility] Stent Right: Ureter [employer] [id number] 05/23/2027 [id number] 30 / / [id number] Description:Strings on Eye Imp Amniotic Membrane 3.5x3.5cm Sz C Implanted:Qty : 1 on 10/16/2015 by Lito Maloney MD at [facility] Right: Eye BIO-TISSUE 07/18/2017 [id number] / [id number] / Explanted Type Area Space Operations Officer Device Identifier Shelf Expiration Date Model / Serial / Lot Tria Ureteral Stent 4.8 Fr. X 26 Cm Implanted:Qty : 1 on 09/20/2024 by Abebe Hernandez MD at [facility] Explanted:Qty : 1 on 09/28/2024 by Chago Katz MD at [facility] Stent Right: Ureter [employer] 05/23/2027 [id number] 30 / / [id number] Stent Ureteral Polaris Ultra 2tyx36nm [id number] - [id number] Implanted:Qty : 1 on 11/18/2024 by Chago Katz MD at [facility] Explanted:Qty : 1 on 12/07/2024 by Chago Katz MD Stent Right: Ureter [employer] [id number] 09/16/2027 [id number] 20 / / [id number] Procedures Procedure Name Priority Date/Time Associated Diagnosis Comments XR VIDEO SWALLOW WITH HULL AND DECK REMOVER OR OT Routine 04/27/2025 11:44 AM CDT 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) Decreased appetite History of choking Pancreatic lesion Essential (primary) hypertension LAB RESULT - HIM SCAN 03/29/2025 12:00 AM CDT CREATININE Routine 03/08/2025 12:14 PM CDT Senile osteoporosis CALCIUM Routine 03/08/2025 12:14 PM CDT Senile osteoporosis COMPREHENSIVE METABOLIC PANEL Routine 01/12/2025 2:57 PM CDT 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) TSH WITH FREE T4 REFLEX Add-On 11/23/2024 7:43 AM CDT HEMOGLOBIN A1C Add-On 11/23/2024 7:43 AM CDT LIPID REFLEX TO DIRECT LDL PANEL Routine 08/15/2024 11:25 AM STORAGE GARAGE MANAGER Encounter for screening for cardiovascular disorders EYE EXAM - HIM SCAN 08/24/2015 1 2:00 AM STORAGE GARAGE MANAGER MA DIAGNOSTIC DIGITAL BILATERAL Routine 12/21/2014 10:15 AM CDT Abnormal breast exam DEXA - HIM SCAN Routine 11/23/2008 from Last 3 Months or Most Recently Relevant to Health Maintenance Results * XR Video Swallow with HULL AND DECK REMOVER or OT (04/27/2025 11:44 AM CDT) Anatomical Region Laterality Modality Radio Fluoroscop y 04/27/2025 11:4 4 AM CDT Impressions 04/27/2025 12:04 PM CDT IMPRESSION: 1. No aspiration or penetration. Narrative 04/27/2025 12:04 PM CDT EXAM: XR VIDEO SWALLOW WITH HULL AND DECK REMOVER OR OT LOCATION: [facility] DATE: 04/27/2025 INDICATION: Difficulty swallowing. COMPARISON: None. TECHNIQUE: Routine swallow study with Speech Pathology using multiple barium thicknesses. RADIATION DOSE: Total Air Kerma 1.5 mGy FINDINGS: Swallow study with Speech Pathology using multiple barium thicknesses. No aspiration or penetration. Normal barium tablet swallowing. Procedure Note Len Tolentino MD - 04/27/2025 EXAM: XR VIDEO SWALLOW WITH HULL AND DECK REMOVER OR OT LOCATION: [facility] DATE: 04/27/2025 INDICATION: Difficulty swallowing. COMPARISON: None. TECHNIQUE: Routine swallow study with Speech Pathology using multiplebarium thicknesses. RADIATION DOSE: Total Air Kerma 1.5 mGy FINDINGS: Swallow study with Speech Pathology using multiple barium thicknesses. No aspiration or penetration. Normal barium tablet swallowing. IMPRESSION: 1. No aspiration or penetration. Dorinda Valentin PA-C [employer] DI[facility]NOST[facility] O RDERABLES Final Result * Lab Result - HIM Scan (03/29/2025 12:00 AM CDT) 03/29/2025 Provider Outside NON-BEAKER LAB TESTING Final Result * (ABNORMAL) Creatinine (03/08/2025 12:14 PM CDT) Creatinine 0.50(L) 0.51 - 0.95 mg/dL 03/08/2025 12:41 PM CDT LABORATORY GFR Estimate >90 >60 mL/min/1.7 3m2 03/08/2025 12:41 PM CDT [facility] Comment:eGFR calculated usin 2020 CKD-EPI equation. Blood STRUCTURE OF LEFT UPPER LIMB / Unknown Venipuncture / Unknown 03/08/2025 12:14 PM CDT 03/08/2025 12:18 PM CDT Nate Beauchamp MD LAB - BLOOD ORDERABLES Final R esult LABORATORY [facility] [address] Lab (1st floor, no room number) [place] [address], [facility] * Calcium (03/08/2025 12:14 PM CDT) Pathologist [facility] Calcium 9.0 8.8 - 10.4 mg/dL 03/08/2025 12:41 PM CDT LABORATORY Blood STRUCTURE OF LEFT UPPER LIMB / Unknown Venipuncture / Unknown 03/08/2025 12:14 PM CDT 03/08/2025 12:18 PM CDT Nate Beauchamp MD LAB - BLOOD ORDERABLES Final R esult [facility] [address] Lab (1st floor, no room number) [place] [address], [facility] * (ABNORMAL) Comprehensive metabolic panel (01/12/2025 2:57 PM CDT) Sodium 136 135 - 145 mmol/L 01/12/2025 3:20 PM CDT LABORATORY Potassium 3.4 3.4 - 5.3 mmol/L 01/12/2025 3:20 PM CDT LABORATORY Carbon Dioxide (CO2) 23 22 - 29 mmol/L 01/12/2025 3:20 PM CDT LABORATORY Anion Gap 11 7 - 15 mmol/L 01/12/2025 3:20 PM CDT LABORATORY Urea Nitrogen 5.5(L) 8.0 - 23.0 mg/dL 01/12/2025 3:20 PM CDT [facility] Creatinine 0.47(L) 0.51 - 0.95 mg/dL 01/12/2025 3:20 PM CDT [facility] GFR Estimate >90 >60 mL/min/1.7 3m2 01/12/2025 3:20 PM CDT [facility] Comment:eGFR calculated usin 2020 CKD-EPI equation. Calcium 9.0 8.8 - 10.4 mg/dL 01/12/2025 3:20 PM CDT [facility] Chloride 102 98 - 107 mmol/L 01/12/2025 3:20 PM CDT [facility] Glucose 279(H) 70 - 99 mg/dL 01/12/2025 3:20 PM CDT [facility] Alkaline Phosphatase 153(H) 40 - 150 U/L 01/12/2025 3:20 PM CDT [facility] AST 61(H) 0 - 45 U/L 01/12/2025 3:20 PM CDT [facility] ALT 27 0 - 50 U/L 01/12/2025 3:20 PM CDT [facility] Protein Total 7.7 6.4 - 8.3 g/dL 01/12/2025 3:20 PM CDT [facility] Albumin 2.9(L) 3.5 - 5.2 g/dL 01/12/2025 3:20 PM CDT [facility] Bilirubin Total 5.1(H) <=1.2 mg/dL 01/12/2025 3:20 PM CDT [facility] Blood STRUCTURE OF RIGHT HAND / Unknown Venipuncture / Unknown 01/12/2025 2:57 PM CDT 01/12/2025 2:57 PM CDT Portia Barboza MD LAB - BLOOD ORDERABLES Final Result [facility] LABORATORY [facility] [address] Lab (1st floor, no room number) [place] [address], [facility] * TSH with free T4 reflex (11/23/2024 7:43 AM CDT) TSH 3.68 0.30 - 4.20 uIU/mL 11/23/2024 12:17 PM CDT [facility] Blood BLOOD SPECIMEN / Unknown Venipuncture / Unknown 11/23/2024 7:43 AM CDT 11/23/2024 8:17 AM CDT Lito Ros DO LAB - BLOOD ORDERABLES Final R esult LABORATORY [facility] [address] Lab (1st floor, no room number) [address] * (ABNORMAL) Hemoglobin A1c (11/23/2024 7:43 AM CDT) Estimated Average Glucose 189(H) <117 mg/dL 11/23/2024 12:18 PM CDT [facility] Hemoglobin A1C 8.2(H) <5.7 % 11/23/2024 12:18 PM CDT [facility] Comment: Normal <5.7% Prediabetes 5.7-6.4% Diabetes 6.5% or higher Note: Adopted from ADA consensus guidelines. Blood BLOOD SPECIMEN / Unknown Venipuncture / Unknown 11/23/2024 7:43 AM CDT 11/23/2024 8:17 AM CDT Lito Sommer DO LAB - BLOOD ORDERABLES Final R esult LABORATORY [facility] [address] Lab (1st floor, no room number) [address] * Lipid panel reflex to direct LDL (08/15/2024 11:25 AM STORAGE GARAGE MANAGER) Cholesterol 174 <200 mg/dL 08/16/2024 3:22 AM STORAGE GARAGE MANAGER [facility] Triglycerides 96 <150 mg/dL 08/16/2024 3:22 AM STORAGE GARAGE MANAGER [facility] Direct Measure HDL 69 >=50 mg/dL 2024 3:22 AM STORAGE GARAGE MANAGER [facility] LDL Cholesterol Calculated 86 <100 mg/dL 08/16/2024 3:22 AM STORAGE GARAGE MANAGER [facility] Non HDL Cholesterol 105 <130 mg/dL 08/16/2024 3:22 AM STORAGE GARAGE MANAGER [facility] Patient Fasting > 8hrs? Yes 08/16/2024 3:22 AM STORAGE GARAGE MANAGER LABORATORY Blood TOPOGRAPHY UNKNOWN / Unknown Client Draw / Unknown 08/15/2024 11:25 AM STORAGE GARAGE MANAGER 08/15/2024 5:46 PM STORAGE GARAGE MANAGER Narrative [facility] - 08/16/2024 3:22 AM STORAGE GARAGE MANAGER Cholesterol Desirable: < 200 mg/dL Borderline High: 200 - 239 mg/dL High: >= 240 mg/dL Triglycerides Normal: < 150 mg/dL Borderline High: 150 - 199 mg/dL High: 200-499 mg/dL Very High: >= 500 mg/dL Direct Measure HDL Female: >= 50 mg/dL Male: >= 40 mg/dL LDL Cholesterol Desirable: < 100 mg/dL Above Desirable: 100 - 129 mg/dL Borderline High: 130 - 159 mg/dL High: 160 - 189 mg/dL Very High: >= 190 mg/dL Non HDL Cholesterol Desirable: < 130 mg/dL Above Desirable: 130 - 159 mg/dL Borderline High: 160 - 189 mg/dL High: 190 - 219 mg/dL Very High: >= 220 mg/dL us Kristin Merino MD LAB - BLOOD ORDERABLES Final Re sult [facility] [address] [facility] [place] [address], [facility] LABORATORY [facility] [address] [facility] Lab (1st floor, no room number) [place] [address] * EYE EXAM - HIM SCAN (08/24/2015 12:00 AM STORAGE GARAGE MANAGER) 08/24/2015 us Provider Outside OTHER Final Result * MA Diagnostic Digital Bilateral (12/21/2014 10:15 AM CDT) Anatomical Region Laterality Modality Breast Bilateral Mammography Impressions 12/21/2014 10:24 AM CDT IMPRESSION: BI-RADS CATEGORY: 1 - NEGATIVE. RECOMMENDED FOLLOW-UP: Annual Mammography. JOHN MISHRA MD Narrative 12/21/2014 10:24 AM CDT MA DIAGNOSTIC DIGITAL BILATERAL, US BREAST LEFT LIMITED 1-3 QUADRANTS 12/21/2014 10:15 AM HISTORY: The patient had an outside thermogram that showed a hot spot in her left breast at 2:00, near the nipple. She has no palpable lumps. Further assess. COMPARISON: 05/30/2010, 11/10/2007 TECHNIQUE: Bilateral digital mammography with CAD is performed as well as directed left breast ultrasound. BREAST DENSITY: Heterogeneously dense. BILATERAL MAMMOGRAM: Stable. No new or suspicious findings of malignancy. LEFT BREAST ULTRASOUND: Directed sonography to the 2:00 periareolar and retroareolar region in the left breast shows no focal finding. Any clinically significant palpable finding should be treated on its own merit. Joaquina Odonnell MD IMG MAMMOGRAPHY ORDERABLES Final Result * DEXA - HIM Scan (11/23/2008) Anatomical Region Laterality Modality Other Narrative 11/23/2008 As reported by previous EMR. Please see report in Historical Scan Documents. Imaging results osteoporosis Provider Abstract IMG DEXA ORDERABLES Final Resu lt from Last 3 Months or Most Recently Relevant to Health Maintenance Insurance [employer] MEDICARE ADVANTAGE [employer] ADVANTAGE Advance Directives For more information, please contact: [phone] * Full Code (Latest Code Status on File) Date Activated Date Inactivated Comments 11/22/2024 6:01 PM 11/29/2024 3:53 PM All basic an d advanced life-sustaining interventions are performed as appropriate Question Answer Comments Code status determined by: Discussion with patie nt/ legal decision maker * Full Code Date Activated Date Inactivated Comments 09/27/2024 6:48 AM 09/29/2024 5:46 PM All basic an d advanced life-sustaining interventions are performed as appropriate Question Answer Comments Code status determined by: Discussion with patie nt/ legal decision maker * Full Code Date Activated Date Inactivated Comments 09/20/2024 7:46 PM 09/23/2024 5:20 PM All basic an d advanced life-sustaining interventions are performed as appropriate Question Answer Comments Code status determined by: Discussion with patie nt/ legal decision maker * Full Code Date Activated Date Inactivated Comments 03/25/2024 2:55 PM 03/27/2024 2:33 PM All basic an d advanced life-sustaining interventions are performed as appropriate Question Answer Comments Code status determined by: Discussion with patie nt/ legal decision maker Care Teams Electrical Logging Engineer Relationship Specialty Start Date End Date Kristin Merino MD [address] [place] [id number] PCP - General Internal Medicine 08/04/22 Fredy Liang MD Referring Physician Urology 02/02/14 Nik Mackey MD [facility] [address] [place] [address] Referring Physician Ophthalmology 08/24/15 Coleman Davalos MD [address] [facility] [address] [place], [place] [id number] Ophthalmology 08/24/15 Abebe Hernandez MD [address] [place] [address] Urology 02/27/23 Chago Katz MD [address] [place] [address] Assigned Surgical Provider 03/28/23 Yemi Deleon PA-C [address] [place] [address] Assigned Neuroscience Provider 06/04/24
--- OUTSIDE RECORDS SUMMARY | 2025-06-06 15:19 | XMS_ITS ---
Author Organization [facility] Address [address] [place] [address] Care Team Providers Care Flight Crew Scheduler Name Role Phone Fredy Liang MD Unavailable Unavailable Nik Mackey MD Unavailable [phone] Coleman Davalos MD Unavailable [phone] Kristin Merino MD Primary Care Provider [phone] Abebe Hernandez MD Unavailable [phone] Chago Katz MD Unavailable [phone] Yemi Deleon PA-C Unavailable [phone] Active Problems Problem Noted Date Diagnosed Date Hyponatremia 11/22/2024 Non-specific colitis 11/22/2024 Urinary tract infection without hematuria, site unspecified 11/22/2024 Sepsis, due to unspecified o rganism, unspecified whether acute organ dysfunction present 11/22/2024 Generalized weakness 09/27/2024 Left flank pain 09/27/2024 Acute cystitis without hematuria 09/27/2024 Status post placement of ureteral stent 09/28/19 25 Ureteral stone 09/20/2024 Hydronephrosis with ureterop elvic [...] one CT reports possible MSK at [facility] 2011 Hypovitaminosis D 03/21/2014 Hyperglycemia 03/21/2014 Current Treatment and Therapy Plans No current plan information found. 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 Past Treatment and Therapy Plans Lifetime Dose Tracking * Chemical Lifetime Dose Automatic Entry Manual Entr y Total Air Kerma 5.4 mGy 5.4 mGy 0 mGy Fluoro Time 2.3 Minutes 2.3 Minutes 0 Minutes Resolved Problems Problem Noted Date Diagnosed Date Resolved Date Weakness 11/29/2007 08/09/2008 Lyme disease 11/29/2007 08/09/2008 Fibromyalgia 11/29/2007 08/09/2008
--- OUTSIDE RECORDS SUMMARY | 2025-06-06 15:19 | XMS_ITS | Encounter Summary ---
Author Organization [facility] Address [address] [place] [address] Care Team Providers Care Cinder Crane Operator Name Role Phone Fredy Liang MD Unavailable Unavailable Nik Mackey MD Unavailable [phone] Coleman Davalos MD Unavailable [phone] Kristin Merino MD Primary Care Provider [phone] Abebe Hernandez MD Unavailable [phone] Chago Katz MD Unavailable [phone] Yemi Deleon PA-C Unavailable [phone] Encounter Details Date Type Department Care Team (Latest Contact Info) Description 05/16/2025 Travel Social History Tobacco Use Types Packs/Day Years [...] in an abandoned building, in an overnight custodial, or couch-surfing.) Yes 11/22/2024 Are you worried [...] on file Legal Sex Female 3:26 AM C ARCHITECT Gender Identity Not on file Sexual Orientation Not on file documented as of this encounter Plan of Treatment Upcoming Encounters Date Type Department Care Team (Late st Contact Info) Description 06/12/2025 1:20 PM C ARCHITECT Ancillary Procedure [facility] [address] [facility] [address] [place] [phone] Chago Katz MD [address] [facility] [address] [place], [place] [address] 06/13/2025 3:00 PM C ARCHITECT Infusion Therapy [facility] [address] [place] [phone] Nate Beauchamp MD [address] [facility] [address] [place], [place] [address] 06/16/2025 11:15 AM C ARCHITECT Virtual [facility] [place] [address] [facility] [address] [place] [phone] Chago Katz MD [address] [place], [place] [address] 07/11/2025 3:00 PM C ARCHITECT Infusion Therapy Visit [facility] [address] [place] [address] [place] [phone] Nate Beauchamp MD [address] [facility] [address] [place], [place] [address] 08/14/2025 12:30 PM C ARCHITECT [facility] [place] 697136 [facility] [address] [place] [phone] Coleman Davalos MD [address] [id number] documented as of this encounter Visit Diagnoses Not on filedocumented in this encounter Care Teams Cinder Crane Operator Relationship Specialty Start Date End Date Kristin Merino MD [address] [place] [id number] PCP - General Internal Medicine 08/04/22 GarthFredy cooley MD Referring Physician Urology 02/02/14 Nik Mackey MD [facility] [address] [place] [address] Referring Physician Ophthalmology 08/24/15 Coleman Davalos MD [address] [address] MD Ophthalmology 08/24/15 Abebe Hernandez MD [address] [place] [address] Urology 02/27/23 Chago Katz MD [address] [place] [address] Assigned Surgical Provider 03/28/23 Yemi Deleon PA-C [address] [place] [address] Assigned Neuroscience Provider 06/04/24 documented as of this encounter
--- OUTSIDE RECORDS SUMMARY | 2025-06-06 15:19 | XMS_ITS | Encounter Summary ---
Author Organization [facility] Address [address] [place] [address] Care Team Providers Care Layout Inspector Name Role Phone Fredy Liang MD Unavailable Unavailable Nik Mackey MD Unavailable [phone] Coleman Davalos MD Unavailable [phone] Kristin Merino MD Primary Care Provider [phone] Abebe Hernandez MD Unavailable [phone] Chago Katz MD Unavailable [phone] Yemi Deleon PA-C Unavailable [phone] Encounter Details Date Type Department Care Team (Late st Contact Info) Description 01/12/[address] 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) Social History Tobacco Use Types [...] in an abandoned building, in an overnight group home, or couch-surfing.) Yes 11/22/2024 Are you worried [...] on file Legal Sex Female 3:26 AM SUPERVISOR OF INSTRUCTION Gender Identity Not on file Sexual Orientation Not on file documented as of this encounter Plan of Treatment Upcoming Encounters Date Type Department Care Team (Late st Contact Info) Description 06/12/2025 1:20 PM SUPERVISOR OF INSTRUCTION Ancillary Procedure [facility] [address] [facility] [address] [place] [phone] Chago Katz MD [address] [facility] [address] [place] [address] 06/13/2025 3:00 PM SUPERVISOR OF INSTRUCTION Infusion Therapy Visit [facility] [address] [place] [address] [place] [phone] Nate Beauchamp MD [address] [facility] [address] [facility] [address] [place] [address] 06/16/2025 11:15 AM SUPERVISOR OF INSTRUCTION Virtual Visit [facility] [place] [address] [facility] [address] [place] [phone] Chago Katz MD [address] [facility] 500 [place], [place] [address] 07/11/2025 3:00 PM SUPERVISOR OF INSTRUCTION Infusion Therapy Visit [facility] [address] [place] [phone] Nate Beauchamp MD [address] [facility] [address] [facility] 162 [place] [address] 08/14/2025 12:30 PM SUPERVISOR OF INSTRUCTION Office Visit [facility] Eye [facility] [address] [facility] [address] [place] [phone] Coleman Davalos MD 420 [facility] [address] [place] [address] documented as of this encounter Results * (ABNORMAL) INR (01/12/2025 2:57 PM CDT) INR 1.55(H) 0.85 - 1.15 01/12/2025 3:08 PM CDT [facility] PT 18.5(H) 11.8 - 14.8 Seconds 01/12/2025 3:08 PM CDT [facility] Blood STRUCTURE OF RIGHT HAND / Unknown Venipuncture / Unknown 01/12/2025 2:57 PM CDT 01/12/2025 2:57 PM CDT Portia Barboza MD LAB - BLOOD ORDERABLES Final Result LABORATORY [facility] [address] Lab (1st floor, no room number) [place] [address], [facility] * (ABNORMAL) Comprehensive metabolic panel (01/12/2025 [...] - 23.0 mg/dL 01/12/2025 3:20 PM CDT LABORATORY Creatinine 0.47(L) 0.51 - 0.95 mg/dL 01/12/2025 3:20 PM CDT LABORATORY GFR Estimate >90 >60 mL/min/1.7 3m2 01/12/2025 3:20 PM CDT LABORATORY Comment:eGFR calculated usin 2020 CKD-EPI equation. Calcium 9.0 8.8 - 10.4 mg/dL 01/12/2025 3:20 PM CDT LABORATORY Chloride 102 98 - 107 mmol/L 01/12/2025 3:20 PM CDT LABORATORY Glucose 279(H) 70 - 99 mg/dL 01/12/2025 3:20 PM CDT [facility] Alkaline Phosphatase 153(H) 40 - 150 U/L 01/12/2025 3:20 PM CDT LABORATORY AST 61(H) 0 - 45 U/L 01/12/2025 3:20 PM CDT LABORATORY ALT 27 0 - 50 U/L [...] - BLOOD ORDERABLES Final Result [facility] [address] [facility] Lab (1st floor, no room number) [place] [address], [facility] * (ABNORMAL) CBC with platelets (01/12/2025 2:57 PM CDT) WBC Count 6.5 4.0 - 11.0 10e3/uL 01/12/2025 2:59 PM CDT [facility] RBC Count 3.57(L) 3.80 - 5.20 10e6/uL 01/12/2025 2:59 PM CDT [facility] Hemoglobin 12.6 11.7 - 15.7 g/dL 01/12/2025 2:59 PM CDT [facility] Hematocrit 35.8 35.0 - 47.0 % 01/12/2025 2:59 PM CDT [facility] MCV 100 78 - 100 fL 01/12/2025 2:59 PM CDT [facility] MCH 35.3(H) 26.5 - 33.0 pg 01/12/2025 2:59 PM CDT [facility] MCHC 35.2 31.5 - 36.5 g/dL 01/12/2025 2:59 PM CDT [facility] RDW 15.0 10.0 - 15.0 % 01/12/2025 2:59 PM CDT [facility] Platelet Count 111(L) 150 - 450 10e3/uL 01/12/2025 2:59 PM CDT [facility] Blood STRUCTURE OF RIGHT HAND / Unknown Venipuncture / Unknown 01/12/2025 2:57 PM CDT 01/12/2025 2:57 PM CDT Portia Barboza MD LAB - BLOOD ORDERABLES Final Result LABORATORY [facility] [address] Lab (1st floor, no room number) [place] [address] * AFP tumor marker (01/12/2025 2:57 PM CDT) AFP tumor marker 5.8 <=8.3 ng/mL 01/12/2025 8:33 PM CDT [facility] Blood STRUCTURE OF RIGHT HAND / Unknown Venipuncture / Unknown 01/12/2025 2:57 PM CDT 01/12/2025 2:57 PM CDT Narrative [facility] - 01/12/2025 8:33 PM CDT This result is obtained using the [employer] Elecsys AFP method on the chace e801 immunoassay analyzer. Results obtained with different assay methods or kits cannot be used interchangeably. Reference ranges apply to non- females only. Portia Barboza MD LAB - BLOOD ORDERABLES Final Result Performing Organization Address City/[facility]/ZIP Co de Phone Number U LABORATORY [facility] [place] [facility] [address] [facility], [address] [place] [address] documented in this encounter Visit Diagnoses Diagnosis 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)- Primary Other chronic nonalcoholic liver disease documented in this encounter Care Teams Layout Inspector Relationship Specialty Start Date End Date Kristin Merino MD [address] [place] [address] PCP - General Internal Medicine 08/04/22 Fredy Liang MD Referring Physician Urology 02/02/14 Nik Mackey MD [facility] [address] [place] [address] Referring Physician Ophthalmology 08/24/15 Coleman Davalos MD 420 [facility] [address] [place] [address] Ophthalmology 08/24/15 Abebe Hernandez MD [address] [place] [address] Urology 02/27/23 Chago Katz MD [address] [place] [address] Assigned Surgical Provider 03/28/23 Yemi Deleon PA-C [address] [place] [address] Assigned Neuroscience Provider 06/04/24 documented as of this encounter
--- OUTSIDE RECORDS SUMMARY | 2025-06-06 15:19 | XMS_ITS | Clinical Summary ---
Author Organization [facility] Address [address] [place] [address] Care Team Providers Care Petal Cutter Name Role Phone Doctor, No Primary Care Provider Unavailabl e Allergies Active Allergy Reactions Criticality Noted Date Comments Epinephrine Other 10/02/2011 PANIC ATTACK Gluten Unknown 07/23/2010 Mold Itching 10/02/2011 Mold Extracts Itching 10/02/2011 Polyvinyl Alcohol Other,Swelling, lips/tongue 12/24/2015 Swelling around eye, itching, discharge, red Swelling around eye, itching, discharge, red Swelling around eye, itching, discharge, red Polyvinyl Chloride (Pvc) Other 11/11/2023 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 10/28/2023 Active ondansetron (ZOFRAN) 4 mg oral ODT Take 1 tablet (4 mg) under the tongue every 8 (eight) hours as needed. 08/24/2022 Active ibuprofen (ADVIL) 200 mg oral tablet Take 1 tablet every 6 hours by oral route. Active furosemide (LASIX) 20 mg oral tablet Take 1 tablet (20 mg) by mouth every morning. 10/28/2023 Active FREESTYLE DASHA 3 SENSOR device USE DIRECTED AND CHANGE SENSOR EVERY 14 DAYS 10/24/2023 Active thyroid, pork, bulk, 100 % RETIREMENT Powd Take by mouth. Active DULoxetine (CYMBALTA) 20 mg oral delayed release capsule Take 1 capsule (20 mg) by mouth once daily. 30 capsule 3 08/16/2024 Active Active Problems Problem Noted Date Diagnosed Date Acute bilateral thoracic back pain 06/20/2024 Acute pain of both knees 06/20/2024 Bilateral hip pain 06/20/2024 Muscle weakness 06/20/2024 Abnormal increased muscle tightness 06/20/2024 Muscle spasm 06/20/2024 Acute pain of both shoulders 06/20/2024 Social History Tobacco Use Types Packs/Day Years Used Date Smoking Tobacco: Never Smokeless Tobacco: Never Tobacco Cessation:Counseling Given: Not Answered Comments Unknown Sex and Gender Information Value Date Recorded Sex Assigned at Not on file Legal Sex Female 7:31 PM CDT Gender Identity Not on file Sexual Orientation Not on file Last Filed Vital Signs Vital Sign Reading Time Taken Comments Blood Pressure - - Pulse - - Temperature - - Respiratory Rate - - Oxygen Saturation - - Inhaled Oxygen Concentration - - Weight 74.8 kg (165 lb) 08/16/2024 2:46 PM SOFTWARE DEVELOPMENT ENGINEER Height 172.7 cm (5' 8) 08/16/2024 2:46 PM SOFTWARE DEVELOPMENT ENGINEER Body Mass Index 25.09 08/16/2024 2:46 PM SOFTWARE DEVELOPMENT ENGINEER Plan of Treatment Health Maintenance Due Date Last Done Comments Colonoscopy 1954 Eye Exam 1954 Lipid Screening 1954 Microalbumin Q12 Month 1954 Depression Assessment (PHQ-2) 1955 Adult Tetanus Booster 1973 Pneumococcal 50+ Years (1 of 2 - PCV) 1973 Zoster Vaccine (1 of 2) 1973 RSV Vaccines (1 - Risk 50-74 years 1-dose series) 2004 Yearly Review of HCD 2004 Mammogram Screening 12/21/2016 12/21/2014, 2 Medicare Wellness Visit 10/22/2021 10/22/2020 COVID-19 Vaccine ( - season) 2025 Influenza Vaccine (#1) 2025 HgbA1C 03/23/2025 09/20/2024, 11/13/2022 Creatinine 10/22/2025 10/22/2024, 10/11, 10/20/2024, Additional history exists Osteoporosis Screening 05/11/2026 4, 04/30/2022, 04/30/2022, Additional history exists Hepatitis C Screening Completed 09/09/2016 Meningococcal B Vaccine Aged Out No l onger eligible based on patient's age to complete this topic Insurance [employer] MEDICARE ADVANTAGE Care Teams Petal Cutter Relationship Specialty Start Date End Date Doctor, No No ad PCP - General Radiology 10/01/23
--- OUTSIDE RECORDS SUMMARY | 2025-06-06 15:19 | XMS_ITS ---
Author Name Interface, [employer] Address [address] [address] [facility] Oncology Address [address] [address] Support Name Relationship Address Phone LAKIA WATERS Spouse Unknown Unavailable Allergies and Adverse Reactions Medication/Group Name Reaction Severity Date Dust mites 02/23/2024 epinephrine 02/23/2024 mold 02/23/2024 gluten 02/23/2024 Plan Date Type Value 02/23/2024 APPOINTMENT OV 20 MIN 02/23/2024 APPOINTMENT LAB 15 MIN 02/05/2024 APPOINTMENT OV 20 MIN 02/05/2024 APPOINTMENT LAB 15 MIN 02/04/2024 APPOINTMENT OV 20 MIN 02/04/2024 APPOINTMENT LAB 15 MIN 08/13/2023 APPOINTMENT OUTSIDE TEST 5 M IN 08/13/2023 APPOINTMENT OUTSIDE TEST 5 M IN 08/06/2023 APPOINTMENT LAB 10 MIN 08/06/2023 APPOINTMENT OV 20 MIN 02/03/2023 APPOINTMENT LAB 15 MIN 02/03/2023 APPOINTMENT OV 20 MIN 11/27/2022 APPOINTMENT OV 20 MIN 11/26/2021 APPOINTMENT PORTFOLIO ASSISTANT FOLLOW UP 20 MIN 11/26/2022 LAB_ORDER LDH panel 11/26/2022 LAB_ORDER CBC w/ auto diff 01/28/2023 LAB_ORDER CBC w/ auto diff 01/28/2023 LAB_ORDER CMP 01/28/2023 LAB_ORDER LDH panel 08/06/2023 LAB_ORDER CMP 08/06/2023 LAB_ORDER CBC w/ auto diff 08/06/2023 LAB_ORDER LDH panel 08/06/2023 LAB_ORDER CT neck soft tis ishmael 08/06/2023 LAB_ORDER CT orbit, sella w/o contrast 02/23/2024 LAB_ORDER LDH panel 02/23/2024 LAB_ORDER Ferritin panel 02/23/2024 LAB_ORDER CMP 02/23/2024 LAB_ORDER CBC w/ auto diff 10/23/2024 LAB_ORDER CMP 10/23/2024 LAB_ORDER CBC w/ auto diff 10/23/2024 LAB_ORDER CT neck soft tis ishmael w/ contrast 10/23/2024 LAB_ORDER CT orbit, sella w/ contrast Reason for Visit LAB 15 MIN Encounters Date Name 11/26/2021 Follicular non-Hodgk in's lymphoma (disorder) Immunizations Date Name Route Dose Instructions Refusal Reason Stat us Covid-19 vaccine (Pfizer) Patient declined/rejected Not Administered Diagnostic Results Date Type Test Units Lower Limit Upper Limit Result Flag Comments Status Ordered By Specimen Source Lab Address 11/13 [facility] [place] See strike plate attacher d 01/28 [facility] [place] See strike plate attacher d 08/06 LDH panel LDH U/L 120.0 246.0 194 FINAL Skyler Hernandez * [place] [address] [id number] 0 Phone: () - 08/06 CMP Album in g/dL 3.2 5.2 3.8 FINAL Skyler Hernandez * [place] [address] [phone] 0 Phone: () - 08/06 CMP Alkal ine phosp hatas e U/L 46.0 116.0 130 High FINAL Skyler Hernandez * [place] [address] [phone] 0 Phone: () - 08/06 CMP ALT/S GPT U/L 7.0 40.0 21 FINAL Skyler Hernandez * [place] [address] [id number] 0 Phone: () - 08/06 CMP AST/S GOT U/L 13.0 40.0 45 High FINAL Skyler Hernandez * [facility] [address] [phone] 0 Phone: () - 08/06 CMP BUN mg/dL 9.0 23.0 11.0 FINAL Skyler [facility], [address] [facility] [phone] 0 Phone: () - 08/06 CMP Calci um mg/dL 8.7 10.4 9.4 FINAL [facility], [address] [facility] [phone] 0 Phone: () - 08/06 CMP Chlor milan mmol/L 96.0 114.0 107 FINAL [facility], [address] [facility] [phone] 0 Phone: () - 08/06 CMP CO2 mmol/L 20.0 31.0 24 The expected total allowable error for CO2 is 5.6%. We have seen up to 10% differenc e in values if reported at the end of the 96 hour stability window. Please consider the clinical significa nce of a 2.0-2.5 mmol/L lower reported CO2 value if reported at the end of the 96 hour stability window. FINAL Skyler David [facility], [address] [phone] 0 Phone: () - 08/06 CMP Creat inine mg/dL 0.5 1.2 0.70 FINAL Skyler David [facility], [address] [phone] 0 Phone: () - 08/06 CMP GFR estim ate ml/min /1.73m ^2 93.6 GFR is calculate d using the CKD-EPI equation. FINAL [facility], [address] [facility] [phone] 0 Phone: () - 08/06 CMP Gluco se mg/dL 73.0 126.0 189 High FINAL [facility], [address] [facility] [id number] 0 Phone: () - 08/06 CMP Potas sium mmol/L 3.5 5.1 4.0 FINAL [facility], [address] [facility] [phone] 0 Phone: () - 08/06 CMP Sodiu m mmol/L 136.0 145.0 142 FINAL Skyler David * [facility] [place], [address] [facility] [phone] 0 Phone: () - 08/06 CMP Bilir ubin, total mg/dL 0.3 1.2 2.0 High FINAL Skyler David * [facility] [place], [address] [facility] [id number] 0 Phone: () - 08/06 CMP Total prote in g/dL 5.7 8.2 7.6 FINAL Skyler David * [facility] [place], [address] [facility] [id number] 0 Phone: () - 08/06 CBC w/ auto diff MO % % 6.0 15.0 10.8 FINAL Skyler David [facility] [place], [address] [place] [address] [address] [place] [facility] [place] [phone] 0 Phone: () - 08/06 CBC w/ auto diff EO % % 0.0 7.0 2.3 FINAL Skyler David [facility] [place], [address] [place] [address] [address] [place] [facility] [place] [phone] 0 Phone: () - 08/06 CBC w/ auto diff BA % % 0.0 2.0 1.2 FINAL Skyler David [facility] [place], [address] [place] [address] [address] [place] [phone] 0 Phone: () - 08/06 CBC w/ auto diff LY # K/uL 0.4 3.6 2.9 FINAL Skyler David [facility] [place], [address] [place] [address] [address] [place] [phone] 0 Phone: () - 08/06 CBC w/ auto diff MO # K/uL 0.2 1.3 0.8 FINAL Skyler David [facility] [place], [address] [place] [phone] 0 Phone: () - 08/06 CBC w/ auto diff EO # K/uL 0.0 0.6 0.2 FINAL Skyler David [facility] [place], [address] [place] [phone] 0 Phone: () - 08/06 CBC w/ auto diff BA # K/uL 0.0 0.2 0.1 FINAL Skyler David [facility] [place], [address] [place] [phone] 0 Phone: () - 08/06 CBC w/ auto diff NRBC % #/100W BC 0.0 0.2 0.0 FINAL Skyler David [facility] [place], [address] [place] [phone] 0 Phone: () - 08/06 CBC w/ auto diff RBC M/uL 3.9 5.1 4.40 FINAL Skyler David [facility] [place], [address] [place] [phone] 0 Phone: () - 08/06 CBC w/ auto diff HCT % 35.0 48.0 41.4 FINAL Skyler David [facility] [place], [address] [place] [phone] 0 Phone: () - 08/06 CBC w/ auto diff MCV fL 80.0 104.0 94.1 FINAL Skyler David [facility] [place], [address] [place] [phone] 0 Phone: () - 08/06 CBC w/ auto diff MCH pg 26.0 35.0 32.7 FINAL Skyler David [facility] [place], [address] [place] [phone] 0 Phone: () - 08/06 CBC w/ auto diff MCHC g/dL 30.0 35.0 34.8 FINAL Skyler David [facility] [place], [address] [place] [phone] 0 Phone: () - 08/06 CBC w/ auto diff MPV fL 9.5 13.4 9.8 FINAL Skyler David [facility] [place], [address] [place] [phone] 0 Phone: () - 08/06 CBC w/ auto diff RDW % 11.4 16.1 13.60 FINAL Skyler David [facility] [place], [address] [place] [phone] 0 Phone: () - 08/06 CBC w/ auto diff WBC K/uL 3.0 8.9 7.8 FINAL Skyler David [facility] [place], [address] [place] [phone] 0 Phone: () - 08/06 CBC w/ auto diff HGB g/dL 11.3 15.2 14.4 FINAL Skyler [facility] [place], [address] [place] [phone] 0 Phone: () - 08/06 CBC w/ auto diff PLT K/uL 113.0 364.0 174 FINAL Skyler David [facility] [place], [address] [place] [phone] 0 Phone: () - 08/06 CBC w/ auto diff Dillan # (ANC) K/uL 1.6 6.6 3.7 FINAL Skyler David [facility] [place], [address] [place] [phone] 0 Phone: () - 08/06 CBC w/ auto diff Dillan % % 43.0 74.0 47.5 FINAL Skyler David [facility] [place], [address] [place] [id number] 0 Phone: () - 08/06 CBC w/ auto diff IG % % 0.0 0.5 0.3 FINAL Skyler Hernandez [facility] [place], [address] [place] [phone] 0 Phone: () - 08/06 CBC w/ auto diff IG # K/uL 0.0 0.03 0.02 FINAL Skyler Hernandez [facility] [place], [address] [place] [phone] 0 Phone: () - 08/06 CBC w/ auto diff LY % % 14.0 41.0 37.9 FINAL Skyler David [facility] [place], [address] [facility] [address] [place] [id number] 0 Phone: () - 02/22 Dinesh tin panel Dinesh tin ng/mL 11.1 264.0 40.40 FINAL Skyler David * [facility] [place], [address] [facility] [phone] 0 02/22 LDH panel LDH U/L 120.0 246.0 253 High FINAL Skyler David * [facility] [place], [address] [facility] [phone] 0 02/22 CMP Album in g/dL 3.5 5.0 3.8 FINAL Skyler David * [facility] [place], [address] [facility] [place] [id number] 0 02/22 CMP Alkal ine phosp hatas e U/L 36.0 125.0 134 High FINAL Skyler Hernandez * [facility] [place], [address] [facility] [id number] 0 02/22 CMP ALT/S GPT U/L 0.0 34.0 28 FINAL Skyler Hernandez * [facility], [address] [facility] [address] [id number] 0 02/22 CMP AST/S GOT U/L 14.0 36.0 61 High FINAL Skyler Hernandez * [facility], [facility] [address] [id number] 0 02/22 CMP BUN mg/dL 7.0 17.0 11.0 FINAL Skyler Hernandez * [facility], [facility] [address] [place] [address] [phone] 0 02/22 CMP Calci um mg/dL 8.4 10.2 9.2 FINAL Skyler Hernandez * [facility], [facility] [address] [id number] 0 02/22 CMP Chlor milan mmol/L 96.0 107.0 108 High FINAL Skyler Hernandez * [facility], [address] [place] [address] [place] [address] [phone] 0 02/22 CMP CO2 mmol/L 22.0 30.0 20 Low The expected total allowable error for CO2 is 5.6%. We have seen up to 10% differenc e in values if reported at the end of the 96 hour stability window. Please consider the clinical significa nce of a 2.0-2.5 mmol/L lower reported CO2 value if reported at the end of the 96 hour stability window. FINAL Skyler Hernandez * [facility], [facility] [address] [id number] 0 02/22 CMP Creat inine mg/dL 0.66 1.25 0.80 FINAL Skyler Hernandez * [facility], [address] [facility] [id number] 0 02/22 CMP GFR estim ate ml/min /1.73m ^2 79.5 GFR is calculate d using the CKD-EPI equation. FINAL Skyler Hernandez * [facility], [address] [facility] [id number] 0 02/22 CMP Gluco se mg/dL 74.0 100.0 194 High FINAL Skyler Hernandez * [facility], [address] [id number] 0 02/22 CMP Potas sium mmol/L 3.5 5.1 4.3 FINAL Skyler Hernandez * [place] [facility], [address] [id number] 0 02/22 CMP Sodiu m mmol/L 137.0 145.0 137 FINAL Skyler Hernandez * [facility], [address] [id number] 0 02/22 CMP Bilir ubin, total mg/dL 0.2 1.3 2.5 High FINAL Skyler Hernandez * [facility], [address] [id number] 0 02/22 CMP Total prote in g/dL 6.3 8.2 7.7 FINAL Skyler Hernandez * [facility], [address] [id number] 0 02/22 CBC w/ auto diff WBC K/uL 3.0 8.9 6.8 FINAL Skyler Hernandez [facility], [address] [place] [id number] 0 Phone: () - 02/22 CBC w/ auto diff HGB g/dL 11.3 15.2 13.7 FINAL Skyler [facility] [place], [address] [place] [phone] 0 Phone: () - 02/22 CBC w/ auto diff PLT K/uL 113.0 364.0 141 FINAL Skylerkristen [facility] [place], [address] [place] [id number] 0 Phone: () - 02/22 CBC w/ auto diff Dillan # (ANC) K/uL 1.6 6.6 3.1 FINAL Skyler [facility] [place], [address] [place] [phone] 0 Phone: () - 02/22 CBC w/ auto diff Dillan % % 43.0 74.0 46.4 FINAL Skyler [facility] [place], [address] [place] [id number] 0 Phone: () - 02/22 CBC w/ auto diff IG % % 0.0 0.5 0.1 FINAL [facility]yler [facility] [place], [address] [place] [id number] 0 Phone: () - 02/22 CBC w/ auto diff IG # K/uL 0.0 0.03 0.01 FINAL Skyler [facility] [place], [address] [place] [phone] 0 Phone: () - 02/22 CBC w/ auto diff LY % % 14.0 41.0 38.0 FINAL Skyler [facility] [place], [address] [place] [phone] 0 Phone: () - 02/22 CBC w/ auto diff MO % % 6.0 15.0 10.8 FINAL Skyler [facility] [place], [address] [place] [id number] 0 Phone: () - 02/22 CBC w/ auto diff EO % % 0.0 7.0 3.4 FINAL Skyler David [facility] [place], [address] [place] [phone] 0 Phone: () - 02/22 CBC w/ auto diff BA % % 0.0 2.0 1.3 FINAL Skyler David [facility] [place], [address] [place] [id number] 0 Phone: () - 02/22 CBC w/ auto diff LY # K/uL 0.4 3.6 2.6 FINAL Skyler David [facility] [place], [address] [place] [id number] 0 Phone: () - 02/22 CBC w/ auto diff MO # K/uL 0.2 1.3 0.7 FINAL Skyler David [facility] [place], [address] [place] [id number] 0 Phone: () - 02/22 CBC w/ auto diff EO # K/uL 0.0 0.6 0.2 FINAL Skyler David [facility] [place], [address] [place] [id number] 0 Phone: () - 02/22 CBC w/ auto diff BA # K/uL 0.0 0.2 0.1 FINAL Skyler Daivd [facility] [place], [address] [place] [id number] 0 Phone: () - 02/22 CBC w/ auto diff NRBC % #/100W BC 0.0 0.2 0.0 FINAL Skyler David [facility] [place], [address] [place] [phone] 0 Phone: () - 02/22 CBC w/ auto diff RBC M/uL 3.9 5.1 4.10 FINAL [facility]yler [facility] [place], [address] [place] [id number] 0 Phone: () - 02/22 CBC w/ auto diff HCT % 35.0 48.0 38.3 FINAL Skyler [facility] [place], [address] [facility] [address] [place] [id number] 0 Phone: () - 02/22 CBC w/ auto diff MCV fL 80.0 104.0 93.4 FINAL Skyler [facility] [place], [address] [facility] [address] [place] [phone] 0 Phone: () - 02/22 CBC w/ auto diff MCH pg 26.0 35.0 33.4 FINAL Skyler [facility] [place], [address] [facility] [facility] [address] [place] [phone] 0 Phone: () - 02/22 CBC w/ auto diff MCHC g/dL 30.0 35.0 35.8 High FINAL Skyler [facility] [place], [address] [facility] [address] [place] [id number] 0 Phone: () - 02/22 CBC w/ auto diff MPV fL 9.5 13.4 10.2 FINAL Skyler [facility] [place], [address] [place] [id number] 0 Phone: () - 02/22 CBC w/ auto diff RDW % 11.4 16.1 13.30 FINAL Skyler [facility] [place], [address] [place] [phone] 0 Phone: () - 08/15 [facility] [place] See strike plate attacher d Medications Date Name Route Dose Frequency Instructions Start Date End Date Status Fill Status Indication 2018 Thyroid (Pork) Oral PO 0.5 TABLE T(S) daily 2015 active Problems Diagnosis Status Date of Diagnosis Resolution Date Follicular non-Hodgkin's lymphoma (disorder) Active 11/02/2015 Follicular non-Hodgkin's lymphoma (disorder) Active Hemochromatosis (disorder) Active Cirrhosis of liver (disorder) Active Vital Signs Date Type Value 11/26/2021 Respiratory Rate 16.00 11/26/2021 Pain Scale 1.00 11/26/2021 Weight 169.40 11/26/2021 Height 68.00 11/26/2021 Oxygen Saturation 98.00 11/26/2021 Intravascular Systolic 126 11/26/2021 Intravascular Diastolic 76 11/26/2021 BSA 1.90 11/26/2021 Body Temperature 98.90 11/26/2021 Heart Beat 60.00 11/26/2021 BMI 25.76 02/03/2023 BSA 1.87 02/03/2023 BMI 24.72 02/03/2023 Height 68.00 02/03/2023 Weight 162.60 02/03/2023 Pain Scale 0.00 02/03/2023 Intravascular Systolic 138 02/03/2023 Intravascular Diastolic 76 02/03/2023 Oxygen Saturation 97.00 02/03/2023 Respiratory Rate 16.00 02/03/2023 Body Temperature 97.40 02/03/2023 Heart Beat 66.00 08/06/2023 Body Temperature 96.90 08/06/2023 Heart Beat 62.00 08/06/2023 Respiratory Rate 16.00 08/06/2023 Oxygen Saturation 97.00 08/06/2023 BSA 1.89 08/06/2023 Pain Scale 0.00 08/06/2023 Weight 166.60 08/06/2023 Height 68.00 08/06/2023 BMI 25.33 08/06/2023 Intravascular Systolic 128 08/06/2023 Intravascular Diastolic 82 02/23/2024 BSA 1.95 02/23/2024 BMI 27.19 02/23/2024 Height 68.00 02/23/2024 Weight 178.80 02/23/2024 Pain Scale 0.00 02/23/2024 Oxygen Saturation 95.00 02/23/2024 Respiratory Rate 16.00 02/23/2024 Heart Beat 72.00 02/23/2024 Intravascular Systolic 118 02/23/2024 Intravascular Diastolic 80 02/23/2024 Body Temperature 98.20
--- OUTSIDE RECORDS SUMMARY | 2025-06-06 15:19 | XMS_ITS | Encounter Summary ---
Author Organization [employer] Address [address] [place] [address] Care Team Providers Care Vice President Of Engineering Name Role Phone Fredy Liang MD Unavailable Unavailable Nik Mackey MD Unavailable [phone] Coleman Davalos MD Unavailable [phone] Kristin Merino MD Primary Care Provider [phone] Abebe Hernandez MD Unavailable [phone] Chago Katz MD Unavailable [phone] Yemi Deleon PA-C Unavailable + [phone] Encounter Details Date Type Department Care Team (Latest Contact Info) Description 04/27/2025 Travel Social History Tobacco Use Types Packs/Day [...] on file Legal Sex 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 Gender Identity Not on file Sexual Orientation Not on file documented as of this encounter Plan of Treatment Upcoming Encounters Date Type Department Care Team (Late st Contact Info) Description 06/12/2025 1:20 PM KEYBOARD SPECIALIST Ancillary Procedure [facility] [address] [facility] [address] [place] [phone] Chago Katz MD [address] [facility] [address] [place], [place] [address] 06/13/2025 3:00 PM KEYBOARD SPECIALIST Infusion Therapy Visit [facility] [address] [place] [phone] Nate Beauchamp MD [address] [facility] [address] [place], [place] [address] 06/16/2025 11:15 AM KEYBOARD SPECIALIST Virtual Visit [facility] [place] [address] [facility] [address] [place] [phone] Chago Katz MD [address] [place], [place] [address] 07/11/2025 3:00 PM KEYBOARD SPECIALIST Infusion Therapy Visit [facility] [address] [place] [phone] Nate Beauchamp MD [address] [facility] [address] [place], [place] [address] 08/14/2025 12:30 PM KEYBOARD SPECIALIST Office Visit [facility] [place] [phone] [facility] Department [address] [place] [phone] Coleman Davalos MD [address] [address] documented as of this encounter Visit Diagnoses Not on filedocumented in this encounter Care Teams Vice President Of Engineering Relationship Specialty Start Date End Date Kristin Merino MD [address] [place] [id number] PCP - General Internal Medicine 08/04/22 GarthFredy cooley MD Referring Physician Urology 02/02/14 Nik Mackey MD [facility] [address] [place] [address] Referring Physician Ophthalmology 08/24/15 Coleman Davalos MD [address] [address] MD Ophthalmology 08/24/15 Abebe Hernandez MD [address] [place] [address] Urology 02/27/23 Chago Katz MD [address] [place] [address] Assigned Surgical Provider 03/28/23 Yemi Deleon PA-C [address] [place] [address] Assigned Neuroscience Provider 06/04/24 documented as of this encounter
--- OUTSIDE RECORDS SUMMARY | 2025-06-06 15:19 | XMS_ITS | Data Portability ---
Author Organization [facility], [facility] Address [address] [place] [address] Care Team Providers Care Clerk Supervisor Name Role Phone MARCOS MAN Referring Provider MARCOS MAN Primary Care Provider [phone] Assessment No assessment recorded. Plan of Treatment Reminders Order Date Submit Date Provider Last Modified By Organization Details Last Modified Time Details Appointments None recorde d. Lab cytolog y, urine 022 05/05/20 22 [facility], [address], [address], [place], [address], 14:53:26 Referral None recorde d. Procedures None recorde d. Surgeries None recorde d. Imaging None recorde d. Medication Orders None recorde d. Patient TargetsNo targets recorded. Patient Instructions Encounter Date Encounter Id Patient Instructions Last Modified By Organization Details Last Modified Time 05/13/2022 [id number] KUB: 3 mm calyce al calculus lower pole right kidney image 37 series 2. No right ureteral calculus or hydronephrosis. No left renal or ureteral calculi. No left-sided hydronephrosis. No evidence of left renal mass. Hyperdense cyst lateral cortex lower pole right kidney. No ureter or bladder abnormality as visualized. Abdomen: No liver lesion. No bile duct dilatation. Pancreas, spleen, adrenal glands and GI tract are unremarkable. Normal caliber abdominal aorta. No pathologic mesenteric or retroperitoneal adenopathy. Pelvis: No pelvic adenopathy, hernia, mass or fluid collection. Lung bases: No nodule or pleural effusion. Musculoskeletal: Degenerative lumbar spine change. CONCLUSION: 1. 3 mm calyceal calculus lower pole right kidney. No additional urinary tract calculi or hydronephrosis. 2. 20 mm hyperdense right renal cyst, corresponding with 20 mm cyst identified on abdomen ultrasound 10/22/2018, benign finding. No additional follow-up is recommended. Cystoscopy today is normal. Blood in the urine most likely due to kidney stone. See information below on kidney stone prevention: Call Dr. Phipps if you experience blood in the urine again or right flank pain. The cyst in the right kidney is benign and nothing to worry about. Recommendations to Prevent Kidney Stones Water and Fluids: Studies have consistently shown that the most important thing you can do to reduce your chances of forming another kidney stone are to increase your intake of fluids especially water to help dilute the concentration of stone crystals in the urine. If you increase your intake of fluids so you are putting out at least 2.5 L of urine a day, this will reduce your risk of a recurrent stone in the next 2 years by 85%. If you increase your intake of fluids so you are putting out at least 2.0 L of urine a day, it will reduce your stone recurrence rate by 50% in the next 5 years. Uric Acid: High uric acid levels in the urine lead to the formation of monosodium urate crystals in the urine which lead to the precipitation of calcium oxalate stones. To decrease the uric acid level in the urine, avoid foods that are high in protein, especially red meat. You should limit your intake of all meats (fish, poultry, pork and especially red meat) to no more than 8 ounces a day. Oxalate: Oxalate binds with calcium to form kidney stones. Reduce intake of foods that are high in oxalate, most notably tea, chocolate, nuts and spinach. Also beware that Carambola juice, an extract from Star Fruit is extremely high in oxalate. However, the best diet to help reduce oxalate in the urine is the DASH (Dietary Approach to Stop Hypertension) diet which is a diet high in legumes, fruits and vegetables, non-fat dairy and low in sodium, sweetened beverages, red and processed meats. Citrate: Citrate is a stone inhibitor and prevents the crystallization of calcium salts in the urine. Therefore you should increase your intake of citrus juices and fruits like oranges, anai and grapefruit and their juices. [place] juice is an especially excellent source of potassium citrate, even better than lemonade. Recommend you drink 1-2 full glasses of orange juice daily. If your citrate level is extremely low it may be necessary to take a prescription drug such as UroCit K 10 or 20 bhavana-equivalents (mEq) twice a day with food. Several sodas are now acidified by citric acid and contain an amount of citrate equal to or greater than that of lemonade including Diet Sunkist [place], Diet 7Up, Sprite Zero, Diet Kellen Dry Dominique Bety, Lula Mist Free, Diet [place] Crush, Fresca and Diet Mountain Dew. All of these aforementioned sodas have the potential to decrease the risk of kidney stones similar to or greater than lemonade. In contrast, mandy, including Caffeine Free Diet Coke, Diet Coke, Diet Coke with [place], Coke Zero, Caffeine Free Diet Pepsi and Pepsi are acidified by phosphoric acid, not by citric acid and contain low citrate levels. Ingestion of these mandy can lead to a higher risk of kidney stones. Sodium: Sodium is a major determinant of calcium excretion in the urine. An increase in sodium of 100 mEq a day leads to an increase in calcium excretion in the urine of 50 mg a day. The average [place] consumes over 3000 mg of sodium per day. You should reduce your intake of sodium in the diet to no more than 1500 mg a day. Watch out for processed foods which are high in salt/ sodium content. Check labels for sodium content when you grocery shop. Calcium: Generally it's not necessary to reduce your calcium intake in the diet too much. In fact, doing so may actually increase your chances of forming more kidney stones. However, in your case, a moderate restriction of calcium could help. I would recommend no more than 2-3 servings of dairy products (milk, cheese etc) per day. Calcium Supplements: Generally it is OK to continue your calcium supplements. In pre-menopausal women, there is a corresponding increase in calcium excretion in the urine for the first month, followed by down regulation of Vitamin D and normalization of calcium. Post-menopausal women already have a decrease in Vitamin D production so there is no increased risk of stone formation. Calcium Citrate (CitraCal) is a better supplement than Calcium Carbonate because of the beneficial effect of Citrate in preventing stones. Magnesium: Magnesium is also a stone inhibitor. If magnesium is low in the blood or urine, you should be on a magnesium supplement. Go to a nutritional store such as [employer] store to get a good supplement. Vitamin D: The use of Vitamin D does not appear to cause an increase in kidney stones. Weight Loss: If you are overweight, get on a weight loss program. The incidence of kidney stones is much higher in overweight people. Medications Forming Kidney Stones: There are five drugs that can become crystallized in the urine and form stones made of the actual drug. Indinavir is a protease inhibitor used to treat HIV infections; Magnesium Trisilicate, an antacid used to treat stomach reflux; Ephedrine, a stimulant used in a variety of nutritional or energy supplements along with Guaifenesin, an anti cough medicine and Triamterene, a potassium sparing diuretic (water pill) used to treat high blood pressure and swelling. There are five commonly used medications that can cause chemical or metabolic changes in the urine leading to the formation of kidney stones. Furosemide or Lasix, can form calcium stones particularly in premature babies; Carbonic Anhydrase Inhibitors (Diamox), used to treat glaucoma and epilepsy; Topamax, used to treat seizures can decrease Citrate in the urine leading to stones; Zonegran, also used to treat seizures can cause Calcium Phosphate stones; and Laxatives, if taken in large quantities can cause ammonium acid urate stones. Probenecid causes increased uric acid to accumulate in urine which can lead to uric acid stones. [email or web address] Not available 05/13/2022 17:19:18 Reason for Referral None Reported. Results Created Date Observation Date Name Description Value Unit Range Abnormal Flag Note LastModifiedBy Organization Detail LastModifiedTime 05/06/20 22 05/06/2022 URINE CYTOL OGY apresult AP RESULT S FINAL CYTOP ATHOL OGY REPOR T Clini roseline Histo ry Hemat uria unspe cifie d Urine Sampl e Type Cath speci men Diagn osis URINE , CYTOL OGY: Negat ilana for high- grade uroth elial carci noma Susan d by Colten howell MD Board Certi fied in Anato binta, Clini roseline and Cytop athol ogy, Speci alizi ng in Urol[facility] Patho logy MICRO SCOPI C DESCR IPTIO N Micro scopi c exami natio n and the inter preta tion of this case was perfo rmed at [facility] - a [facility], [address], [address], [place] [address] . Gross Descr iptio n The speci men consi sts of 70 cc of light yello w, sligh tly cloud y urine . A ThinP rep slide is prepa red. Not Available [facility] [address], [place], [address], 05/07/2022 14:53:26 Result Notes None recorded. Procedures Surgical History Date Name Laterality Status Provider Name and Address Organization Details Recorded Time 2 Cystoscopy- female completed Rowdy Phipps [facility] 05/13/2022 17:20:44 2 Past Data Reviewed completed Erick Jean-Baptiste [facility] 05/08/2022 05:44:25 Imaging Results None recorded. Procedure Notes None recorded. Medical Equipment None Reported. Allergies Allergen ID Allergen Name Allergen Category Reaction Reaction Severity Criticality Documentation Date Start Date Code Code System Note Provider Name and Address Organization Details Recorded Time 059995 epinephri ne medicatio n Not available Not available Not available 05/05/2022 3992 RxNorm [facility] 2 17:06:59 012523 polyvinyl chloride (PVC) Not available Not available Not available Not available 05/05/2022 [facility] 2 17:07:43 780010 wheat gluten extract food Not available Not available Not available 05/26/20252010 83625 81 RxNorm unrec ogniz ed react ion (text : Unkno wn, code: [id number]) (from exter nal sourc e) Not Available [employer] - External Data Service - prod 17:32:07 052048 mold extract environme nt itching Not available Not available 05/26/20252011 21399 8 RxNorm Not Available [employer] External Data Service - prod 17:32:07 783290 polyvinyl alcohol medicatio n other Not available Not available 05/26/20252015 8570 RxNorm Swell ing aroun d eye, itchi ng, disch arge, red Swell ing aroun d eye, itchi ng, disch arge, red Swell ing aroun d eye, itchi ng, disch arge, red unrec ogniz ed react ion (text : Swell ing, lips/ tongu e, code: [id number]) (from exter nal sourc e) Not Available [employer] - prod 17:32:07 225230 titanium Not available Not available Not available Not available 05/26/20252018 93258 47 RxNorm Denta l impla nt issue s unrec ogniz ed react ion (text : Drasco titis , code: [id number]) (from exter nal sourc e) Not Available [employer] Data Service - prod 17:32:07 946528 epinephri ne hydrochlo ride medicatio n other Not available Not available 05/26/20252011 362 RxNorm BERNA C ATTAC K Not Available [employer] 17:35:12 708833 ethanol food,medi cation other Not available Not available 05/26/20252015 448 RxNorm Espec ially clean ing produ cts but could be air fresh eners alsoP atien t feels like she canno t breat h. Not Available [employer] Data [employer] - prod 17:35:12 060025 iron medicatio n other Not available Not available 05/26/20252018 96173 RxNorm Not Available [employer] 17:35:12 913124 calcium carbonate medicatio n other Not available Not available 05/26/20252010 1897 RxNorm PN: due to kidne y stone s Not Available [employer] 17:36:15 Medications Name Sig Start Date Stop Date Status Note LastModified by Organization Details LastModified Time tamsulosin 0.4 mg capsule TAKE 1 CAPSULE BY MOUTH DAILY FOR KIDNEY STONES active Not Available Not Available No t Available cephalexin 500 mg capsule TAKE 1 CAPSULE BY MOUTH 4 TIMES DAILY FOR 7 DAYS. 05/05 completed Not Available Not Available Not Available Advil 200 mg tablet Take 1 tablet every 6 hours by oral route. active Not Available Not Available No t Available Vitals Date Recorded Body height Body mass index (BMI) Body weight Provider Name and Address Organization Details Last Updated DateTime 05/05/2022 172.72 cm 25.1 kg/m2 84752.74 g [facility] 05/05/2022 17:06:37 Social History Question Answer Notes LastModified by [employer] Details LastModified Time Tobacco Smoking Status Never Smoker Lona Sebring [facility], [facility] 05/05/2022 17:08:49 Do You Have An Advance Directive? No Information not available 05/26/2025 What Is Your Level Of Caffeine Consumption? Occasional Information not available 05/05/2022 Do You Have A Medical Power Of Almond Sorter? No Information not available 05/26/2025 What Was The Date Of Your Most Recent Tobacco Screening? 05/05/2022 Information not available 05/05/2022 What Is Your Relationship Status? 6 Children [email or web address] Information not available 05/13/2022 Sex: Unknown Functional Status Question Answer Note LastModified by [employer] Details LastModified Time What is your level of alcohol consumption? None Information not available 05/05/2022 Are you currently employed? No Mom stay at home [email or web address] Information not available 05/13/2022 Mental Status None recorded. Family History Relationship Description Onset Age of this Age Resolved Age Notes LastModified by Organization Details LastModified Time Father Family history of renal stone [email or web address] Not available 07/2021 17:08:59 Medical History No medical history recorded. Gynecological HistoryNo gynecological history recorded. Obstetrics History GPAL:G 0 P 0 0 0 0 Past Encounters Encounter ID Performer Location Encounter Start Date Encounter Closed Date Diagnosis/Indication Diagnosis SNOMED-CT Code Diagnosis ICD10 Code Diagnosis IMO Codes Diagnosis Note [id number] ALEXEI YUN [facility] [address] [address] 05/05/2022 16:50:45 05/09/2022 08:04:39 Harley hematuria 210177905 R31.0 -6 weeks of gross hematuria. -pt had recent CT, declines urogram given contrast reactions- will need cystoscopy [id number] Rowdy Phipps MD [facility] [address] [place] [address] 05/13/2022 16:09:50 05/13/2022 17:45:03 [facility] hematuria 957389621 R31.0 Likely due to renal calculus Kidney stone 82820031 N2 0.0 Small 3 mm right side, nonobstruc ting. No need for surgical interventi on. Health Concerns Section Related Observation LastModified by Organization Detai ls LastModified Time None Recorded Concern Status LastModified by Organization Details LastModified Time None Recorded Advance Directives Directive N: Payers Insurance Date Sequence Insurance Name Policy Number Policy Motta Covered Member ID Motta Member ID Guarantor Name 11/01/2024 2 [place]: [employer] [facility] [id number] [facility] 11/01/2024 1 [facility] (MEDICARE REPLACEMENT/A DVANTAGE - PPO) [id number] [facility] [id number] [facility] Notes Date Note Type Note Provider Name and Address Organization Details Recorded Time 05/05/2022 text/html ROS as noted in the HPI 05/05/22 seen by Pipo JONES, new patient 66 y/o female here for evaluation of hematuria. Pt states she had 6 weeks of visible blood. Has gone but then returned last week. Now everyday. Denies dysuria. Is having freq and urgency. Some abdominal cramping. No flank pain. No f/c/s. +nausea w/o vomiting. No dizziness or lightheadedness. No tobacco use. Patient does have a h/o kidney stones. May have passed one with in last 1-2 weeks. Last stone was passed 1 year ago. 4 procedures for kidney stones in past. Last creatinine is 0.64 in November 2021. No h/o pelvic radiationNo h/o chemotherapy agents. 05/02/22 EXAM: CT ABDOMEN AND PELVIS WITHOUT CONTRASTCLINICAL INFORMATION: Gross hematuria.TECHNICAL INFORMATION: Axial 5 mm sections were obtained from the hemidiaphragms to the symphysis pubis with coronal and sagittal reformations. No contrast was administered.COMPARISO N: Abdomen ultrasound 10/22/2018.INTERPRETATI ON:KUB: 3 mm calyceal calculus lower pole right kidney image 37 series 2. No right ureteral calculus or hydronephrosis. No left renal or ureteral calculi. No left-sided hydronephrosis. No evidence of left renal mass. Hyperdense cyst lateral cortex lower pole right kidney. No ureter or bladder abnormality as visualized.Abdomen: No liver lesion. No bile duct dilatation. Pancreas, spleen, adrenal glands and GI tract are unremarkable. Normal caliber abdominal aorta. No pathologic mesenteric or retroperitoneal adenopathy.Pelvis: No pelvic adenopathy, hernia, mass or fluid collection.Lung bases: No nodule or pleural effusion.Musculoskelet al: Degenerative lumbar spine change.CONCLUSION:1. 3 mm calyceal calculus lower pole right kidney. No additional urinary tract calculi or hydronephrosis.2. 20 mm hyperdense right renal cyst, corresponding with 20 mm cyst identified on abdomen ultrasound 10/22/2018, benign finding. No additional follow-up is recommended. Erick Jean-Baptiste [facility] [place] [facility] [place] [facility] 05/08/2022 05:49:05 05/13/2022 text/html ROS as noted in the HPI 05/05/22 seen by Pipo JONES, new patient 66 y/o female here for evaluation of hematuria. Pt states she had 6 weeks of visible blood. Has gone but then returned last week. Now everyday. Denies dysuria. Is having freq and urgency. Some abdominal cramping. No flank pain. No f/c/s. +nausea w/o vomiting. No dizziness or lightheadedness. No tobacco use. Patient does have a h/o kidney stones. May have passed one with in last 1-2 weeks. Last stone was passed 1 year ago. 4 procedures for kidney stones in past. Last creatinine is 0.64 in November 2021. No h/o pelvic radiationNo h/o chemotherapy agents. Urine cytologies 05/06/2022 negative for malignant cells. 05/02/22 EXAM: CT ABDOMEN AND PELVIS WITHOUT CONTRASTCLINICAL INFORMATION: Gross hematuria.TECHNICAL INFORMATION: Axial 5 mm sections were obtained from the hemidiaphragms to the symphysis pubis with coronal and sagittal reformations. No contrast was administered.COMPARISO N: Abdomen ultrasound 10/22/2018.INTERPRETATI ON:KUB: 3 mm calyceal calculus lower pole right kidney image 37 series 2. No right ureteral calculus or hydronephrosis. No left renal or ureteral calculi. No left-sided hydronephrosis. No evidence of left renal mass. Hyperdense cyst lateral cortex lower pole right kidney. No ureter or bladder abnormality as visualized.Abdomen: No liver lesion. No bile duct dilatation. Pancreas, spleen, adrenal glands and GI tract are unremarkable. Normal caliber abdominal aorta. No pathologic mesenteric or retroperitoneal adenopathy.Pelvis: No pelvic adenopathy, hernia, mass or fluid collection.Lung bases: No nodule or pleural effusion.Musculoskelet al: Degenerative lumbar spine change.CONCLUSION:1. 3 mm calyceal calculus lower pole right kidney. No additional urinary tract calculi or hydronephrosis.2. 20 mm hyperdense right renal cyst, corresponding with 20 mm cyst identified on abdomen ultrasound 10/22/2018, benign finding. No additional follow-up is recommended. No anti-coagulants or history of UTI. ELE Christ[facility] - [facility] 05/13/2022 17:21:14 OBGyn Episode No OBEpisode recorded.
--- OUTSIDE RECORDS SUMMARY | 2025-06-06 15:20 | XMS_ITS | Encounter Summary ---
Author Organization [place] Address [address] [place] [address] Care Team Providers Care Rfid Technician Name Role Phone No Ref-Primary, Physician Primary Care Provider Unavailable Fredy Liang MD Unavailable [facility]available [facility] Primary [facility] Provider [facility] Nik Mackey MD Unavailable [phone] Coleman Davalos MD Unavailable [phone] Kristin Merino MD Primary Care Provider [phone] AnoopColeman handley MD Unavailable [phone] Abebe Hernandez MD Unavailable [phone] Chago Katz MD Unavailable [phone] Yasmeen Oleary PA-C Unavailable [phone] Yemi Deleon PA-C Unavailable [phone] Love Mcclelland PA-C Unavailable [phone] Naomi Montes [facility] Unavailable Encounter Details Date Type Department Care Team (Late st Contact Info) Description 03/19/2010 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 Pap smear history is significant for thin prep, normal results and atypia. Gynecological complaints include perimenopausal symptoms and urinary urgency kidney stones . Menstrual history includes menarche at age 12 and menopause at age 39. Lifestyle is remarkable for no history of physical abuse, no history of sexual abuse, no history of verbal abuse, regular seatbelt use and family supportive of relationship. Current contraception practice includes none. Health maintenance issues include overweight. Body Mass Index is normal BMI between 18.5 and 24.9. Obstetrical history reveals 6 total pregnancies. Cardiovascular risk factors include family history of cardiovascular disease father and diabetes mellitus. Patient received health guidance in self-breast exam. The patient is sexually active. The patient received tetanus-diphtheria booster 2004. When asked about alcoholic beverage use, patient responds no, screening is complete. Current Medication: Doxycycline 100 mg Cap, 1 Capsule(s), PO, daily, 30 days, 10 refills, for a total of 30, start on June 18, 2009, end on March 19, 2010 and one pill a day for 7 days then 7 days off.. Trazodone 50 mg Tab, 1/2 Tablet(s), PO, daily, 30 days, 10 refills, for a total of 15, start on June 18, 2009, end on March 25, 2010 and discontinued because: Discontinued. Lariam 250 mg Tab, 1 Tablet(s), PO, QW, 30 days, 11 refills, for a total of 6, start on June 18, 2009, end on March 19, 2010, Taking one pill every 5 days and discontinued because: Discontinued. Ambien 10 mg Tab, 1/2 Tablet(s), PO, QHS, 30 days, 11 refills, for a total of 15, start on June 18, 2009, end on June 12, 2010 and by [place] Rios. ROS: Constitutional: The patient denied fatigue, fever, insomnia, night sweats, recent illness and weight loss. Eyes: The patient denied eye pain, photophobia, vision change and visual disturbance. Ears/Nose/Throat/Neck: The patient denied hearing loss, nasal discharge, sinus congestion and sore throat. Cardiovascular: The patient denied arrhythmia, chest pain/pressure, edema, exercise intolerance, orthopnea and palpitations. Respiratory: The patient denied asthma, cough, dyspnea/shortness of breath, pleuritic pain, productive sputum and wheezing. Gastrointestinal: The patient denied abdominal pain, constipation, diarrhea, gastroesophageal reflux, hemorrhoids, melena, nausea and vomiting. Genitourinary/Nephrology: The patient denied dysuria, nocturia and urinary incontinence. Musculoskeletal: The patient denied muscle weakness, myalgias, stiffness and swelling. Dermatologic: The patient denied itching and rash. Neurologic: The patient denied dizziness, headache, memory loss, mental status change and syncope. Psychiatric: The patient denied anxiety, depression, insomnia and mood swings. Endocrine: The patient denied goiter and polyuria. Hematologic/Lymphatic: The patient denied abnormal bleeding and bruising, abnormal ecchymoses, anemia, lymph node enlargement/mass and petechiae. Allergy/Immunology: The patient denied food allergy. Vital Signs: data collected on 03/19/2010 02:24:21 PM by Marisol Coleman weight is 172 pounds clothed height is 6 feet body mass index is 26.15 Kg/m2 sitting heart rate is 64 bpm regular blood pressure at Left Arm while Sitting is 104/60 mmHg PE: Constitutional: GENERAL APPEARANCE: Overall: well nourished, well developed and in no acute distress. Eyes: CONJUNCTIVA/EYELIDS: Overall: conjunctiva clear, cornea clear and eyelids normal; PUPILS AND IRISES: Overall: pupils equal, round, reactive to light and accomodation. Ears/Nose/Throat: EXTERNAL EAR: Overall: normal appearance; EXTERNAL NOSE: Overall: benign appearance, no masses and non-tender; OTOSCOPIC EXAM: Overall: external auditory canals clear and tympanic membranes clear; HEARING ASSESSMENT: Overall: hearing intact bilaterally; LIPS/TEETH/GINGIVA: Overall: benign lips, normal dentition, benign gingiva and no masses; ORAL CAVITY/PHARYNX/LARYNX: Overall: tonsils benign, oropharyngeal mucosa clear and no masses. Neck: THYROID: Overall: normal size, normal consistency, nontender and no mass lesions; INSPECTION OF NECK: Overall: normal appearance and no carotid bruits. Respiratory: AUSCULTATION: Overall: breath sounds clear bilaterally; RESPIRATORY EFFORT/RHYTHM: Overall: no retractions and normal rate. Cardiovascular: AUSCULTATION OF HEART: Overall: regular rate, regular rhythm, normal heart sounds and no murmurs; INSPECTION OF CAROTID PULSES: Overall: strong, bilaterally equal, no bruits; INSPECTION OF ABDOMINAL AORTA: Overall: normal diameter; INSPECTION OF PEDAL PULSES: Overall: strong, equal bilaterally; EXTREMITIES: Overall: no clubbing and no edema. Chest/Breast: BREAST AND AXILLAE PALPATION: Overall: breasts non-tender and no nipple discharge; BREAST/CHEST INSPECTION: Overall: breasts to symmetric and without lesions and normal chest shape. Abdomen: ABDOMINAL EXAM: Overall: no tenderness and normal bowel sounds; LIVER AND SPLEEN EXAM: Overall: no hepatosplenomegaly; HERNIA EXAM: Overall: no hernias present. Genitourinary: RENAL: flank No CVA tenderness; UTERUS: Overall: normal size, normal contour, normal shape, normal mobility, nontender and no mass; CERVIX: Overall: no cervical motion tenderness, no discharge and no lesions; LABIA AND VAGINA: Overall: normal hair distribution, no discharge and no lesions; ADNEXA/PARAMETRIA: Overall: no tenderness, no enlargement, no mass lesions and normal size; URETHRA: Overall: no masses; BLADDER: Overall: no tenderness. Lymphatic: NECK NODES: Overall: anterior cervical chain benign and posterior cervical chain benign; OTHER NODES: Overall: occipital chain benign, auricular chain benign and supraclavicular chain benign. Musculoskeletal: HEAD AND NECK: Overall: head atraumatic and cervical spine benign; DIGITS AND NAILS: Overall: no clubbing and digits benign; SPINE, RIBS AND PELVIS: Overall: good posture, ribs benign and spine benign; GAIT AND STATION: Overall: normal gait and normal station. Integument: INSPECTION OF SKIN: Overall: no rash, lesions; PALPATION: Overall: no induration, no tenderness. Neurologic: DEEP TENDON REFLEXES: Overall: deep tendon reflexes intact; SENSATION: Overall: intact to touch; MENTAL STATUS: Overall: alert and oriented; GAIT: Overall: no ataxia, no unsteadiness; COORDINATION: Overall: no tremors; CRANIAL NERVES: Overall: cranial nerves 2-12 intact; MOTOR: Overall: normal bulk, tone. Psychiatric: ORIENTATION/CONSCIOUSNESS: Overall: oriented to person, place and time; BEHAVIOR/PSYCHOMOTOR ACTIVITY: Overall: no tics, normal psychomotor activity; MOOD AND AFFECT: Overall: normal mood and affect; APPEARANCE: Overall: well-groomed, good eye contact; SPEECH: Overall: normal quality, no aphasia and normal quality, quantity, rate; ATTENTION: Overall: normal digit recall and number repeating; THOUGHT: Overall: normal form and content; COGNITION/MEMORY: Overall: immediate, recent, remote memory intact and normal concentration, intelligence; JUDGMENT/INSIGHT: Overall: judgment and insight intact. Dx: (V70.0) - C - ROUTINE MEDICAL EXAM (V72.31) - C - Screening, pap (250.00) - C - Diabetes mellitus, type II controlled (272.4) - C - Hyperlipidemia (V76.51) - C - Screening, colon (780.71) - C - Chronic fatigue syndrome (401.9) - C - Hypertension (592.0) - C - Kidney stones (591) - C - Hydronephrosis (244.9) - C - Hypothyroidism (795.01) - C - Abnormal Pap, ASC-US (YOLETTE in 2007 and 2008) (733.00) - C - Osteoporosis, unspec. Rx: Aspirin 81 mg Tab, 1 Tablet(s), PO, daily, start on March 19, 2010, end on March 18, 2010, Pt told to start ASA. Plan: A return visit is indicated in 1week. 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 4) recommend take vit D as #3 took her off it documented in this encounter Plan of Treatment Upcoming Encounters Date Type Department Care Team (Late st Contact Info) Description 06/12/2025 1:20 PM GUEST SERVICES AGENT Ancillary Procedure [address] [place] [address] Chago Katz MD [address] [place] [address] 06/13/2025 3:00 PM GUEST SERVICES AGENT Infusion Therapy Visit [address] [place] [address] Nate Beauchamp MD [address] [facility] [address] [place], [place] [address] 06/16/2025 11:15 AM GUEST SERVICES AGENT Virtual Visit [facility] [place] [address] [facility] [address] [place] [phone] Chago Katz MD [address] [place] [address] 07/11/2025 3:00 PM GUEST SERVICES AGENT Infusion Therapy Visit [address] [place] [address] Nate Beauchamp MD [address] [facility] 162 [place] [address] 08/14/2025 12:30 PM GUEST SERVICES AGENT Office Visit [facility] Eye Clinic - [facility] [address] [facility] 9th Fl Clin [address] [place] [address] Coleman Davalos MD 420 [facility] 493 [place], [place] [id number] documented as of this encounter Visit Diagnoses Not on filedocumented in this encounter Care Teams Rfid Technician Relationship Specialty Start Date End Date No Ref-Primary, Physician PCP - General 02/01/14 03/20/14 Joaquina Odonnell MD PCP - General Family Practice 03/21/14 08/03/22 Kristin Merino MD [address] [facility] 493 [place] [address] PCP - General Internal Medicine 08/04/22 Fredy Liang MD Referring Physician Urology 02/02/14 Nik Mackey MD [facility] [address] [place] [address] Referring Physician Ophthalmology 08/24/15 Coleman Davalos MD [address] [address] MD Ophthalmology 08/24/15 Coleman Davalos MD [address] [place] [address] Assigned PCP 07/09/22 08/05/23 Abebe Hernandez MD [address] [place] [address] Urology 02/27/23 Chago Katz MD [address] [place], [place] [address] Assigned Surgical Provider 03/28/23 Yasmeen Oleary PA-C [address] [place], [place] [address] Assigned Neuroscience Provider 05/04/24 06/03/24 Yemi Deleon PA-C [address] [place] [address] Assigned Neuroscience Provider 06/04/24 Love Mcclelland PA-C [address] [place] [address] Physician Product Promoter Sales Person Physician Product Promoter Sales Person - Medical 11/29/24 12/10/24 Naomi Montes [facility] [id number] [place] [phone] 11/29/24 12/10/24 documented as of this encounter
--- OUTSIDE RECORDS SUMMARY | 2025-06-06 15:20 | XMS_ITS | Encounter Summary ---
Author Organization [place] Address [address] [place] [address] Care Team Providers Care Route Rider Name Role Phone No Ref-Primary, Physician Primary Care Provider Unavailable Fredy Liang MD Unavailable Unavailable IdJoaquina schilling MD Primary Care Provider [facility] Nik Mackey MD Unavailable [phone] Coleman Davalos MD Unavailable [phone] Kristin Merino MD Primary Care Provider [phone] Coleman Davalos MD Unavailable [phone] Abebe Hernandez MD Unavailable [phone] Chago Katz MD Unavailable [phone] Yasmeen Oleary PA-C Unavailable [phone] Yemi Deleon PA-C Unavailable [phone] Love Mcclelland PA-C Unavailable [phone] Naomi Montes [facility] Unavailable Encounter Details Date Type Department Care Team (Late st Contact Info) Description 06/15/2008 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 Surgery scheduled on 06/19/08 @ [facility] [place] with Dr. Nik Lara. Having cataract extraction O.D. O.S. is scheduled for 07/03/08. Fax to [phone].. The patient has been referred by Dr. Choco Lara and in both eyes. The procedure to be performed is excision of cataract. The procedure has been scheduled on 06/19/2008 right eye - 07/03/08 for left eye. Pertinent other conditions include immunizations up to date, No history of bleeding disorder, No complication of surgery, No transfusion reaction and diabetes. Significant medications include NSAID's none since 06/06/08, No aspirin use and no steroid use. Family history is significant for No anesthesia complications and No history of bleeding disorder. In addition, she presented with cataract. The patient has been referred by Dr. Choco Lara and in both eyes. The symptom is described as blurred vision, chronic, loss of vision and worsening. The symptom is gradual in onset and ongoing. The symptom started 2 years ago and during adulthood. The complaint severely limits vision. The complaint is moderate. Pertinent other conditions include diabetes. Current Medication: Clonazepam 0.5 mg Tab, 1 Tablet(s), PO, QHS, 30 days, for a total of 30, start on June 15, 2008, end on August 14, 2008, From History and discontinued because: Refilled. FreeStyle Test Strips, In Vitro, as directed, 100 days, 11 refills, for a total of 100, start on July 30, 2007, end on February 11, 2009, discontinued because: Discontinued and Changed meter. Ambien 10 mg Tab, 1 Tablet, PO, QHS, 30 days, 11 refills, for a total of 30, start on August 12, 2007 and end on August 06, 2008. ROS: Constitutional: The patient complained of fatigue, insomnia and weight loss (50 lbs weight loss) but denied chills and fever. Eyes: The patient denied eye pain and vision change. Ears/Nose/Throat/Neck: The patient denied nasal discharge and otalgia. Cardiovascular: The patient denied chest pain/pressure and palpitations. Respiratory: The patient denied cough and wheezing. Gastrointestinal: The patient denied constipation and diarrhea. Genitourinary/Nephrology: The patient denied dysuria and urinary frequency. Musculoskeletal: The patient denied arthralgia(s) and myalgias. Dermatologic: The patient denied itching and rash. Neurologic: The patient denied dizziness and headache. Psychiatric: The patient complained of insomnia but denied mood swings. Endocrine: The patient complained of diabetes mellitus type 2. Vital Signs: data collected on 06/15/2008 01:49:44 PM by Viktoriya Fajardo weight is 148 pounds 6.40 ounces clothed height is 6 feet body mass index is 22.56 Kg/m2 temperature is 98.4 F respiration rate is 18 bpm quiet sitting heart rate is 52 bpm radial regular blood pressure at Left Arm while Sitting is 102/64 mmHg PE: Constitutional: GENERAL APPEARANCE: Overall: well [...] PULSES: Overall: strong, bilaterally equal, no bruits; EXTREMITIES: Overall: no clubbing and no edema. Abdomen: ABDOMINAL EXAM: Overall: no tenderness and normal bowel sounds; LIVER AND SPLEEN EXAM: Overall: no hepatosplenomegaly. Lymphatic: NECK NODES: Overall: shotty lymphadenopathy; OTHER NODES: Overall: supraclavicular chain benign. Musculoskeletal: HEAD AND NECK: Overall: head atraumatic and cervical spine benign; DIGITS AND NAILS: Overall: no clubbing and digits benign. Neurologic: DEEP TENDON REFLEXES: Overall: deep tendon reflexes intact; SENSATION: Overall: intact to touch; MENTAL STATUS: Overall: alert and oriented; MOTOR: Overall: normal bulk, tone. Psychiatric: ORIENTATION/CONSCIOUSNESS: Overall: oriented to person, place and time; MOOD AND AFFECT: Overall: normal mood and affect; APPEARANCE: Overall: well-groomed, good eye contact. 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 Yates titrating up to 2 pills. Trazodone 50 mg Tab, 1 Tablet(s), PO, QHS, 30 days, 10 refills, for a total of 30. Plan: None Patient Instructions: None TING LAYOUT WORKER * Verna Waldron MD - 06/05/2012 10:54 AM CST CC/HPI: lab order from Dr Lion, [facility], fax # She next presented with Lab/XRay Only. Current Medication: [place] Thyroid 30 mg Tab, 2 Tablet(s), PO, daily, 30 days, 11 refills, for a total of 60, start on June 15, 2008, end on February 11, 2009, Dr. Yates titrating up to 2 pills and discontinued because: Refilled. Trazodone 50 mg Tab, 1 Tablet(s), PO, QHS, 30 days, 10 refills, for a total of 30, start on June 15, 2008, end on April 30, 2009 and discontinued because: Refilled. FreeStyle Test Strips, In Vitro, as directed, 100 days, 11 refills, for a total of 100, start on July 30, 2007, end on February 11, 2009, discontinued because: Discontinued and Changed meter. Clonazepam 0.5 mg Tab, 1 Tablet(s), PO, QHS, 30 days, for a total of 30, start on June 15, 2008, end on August 14, 2008, From History and discontinued because: Refilled. Ambien 10 mg Tab, 1 Tablet, PO, QHS, 30 days, 11 refills, for a total of 30, start on August 12, 2007 and end on August 06, 2008. 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) - C - Insomnia (780.71) - C - Chronic fatigue syndrome (780.79) - C - Fatigue (719.49) - C - JOINT PAIN MULT JTS (088.82) - C - BABESIOSIS (088.81) - C - Lyme disease Rx: None Plan: None Patient Instructions: None TING LAYOUT WORKER documented in this encounter Plan of Treatment Upcoming Encounters Date Type Department Care Team (Late st Contact Info) Description 06/12/2025 1:20 PM DRAFTING LAYOUT WORKER Ancillary Procedure [facility] [address] [facility] [address] [place] [phone] Chago Katz MD [address] [facility] 500 [place], [place] [address] 06/13/2025 3:00 PM DRAFTING LAYOUT WORKER Infusion Therapy Visit [facility] [address] [place] [address] [place] [phone] Nate Beauchamp MD [address] [facility] [address] [place], [place] [phone] 06/16/2025 11:15 AM DRAFTING LAYOUT WORKER Virtual Visit [facility] [place] [address] [facility] [address] [place] [phone] Chago Katz MD [address] [place] [address] 07/11/2025 3:00 PM DRAFTING LAYOUT WORKER Infusion Therapy Visit [facility] [address] [place] [address] [place] [phone] Nate Beauchamp MD [address] [facility] [address] [place], [place] [address] 08/14/2025 12:30 PM DRAFTING LAYOUT WORKER Office Visit [facility] Eye [facility] [address] [facility] 9th Fl Clin [address] [place] [phone] Coleman Davalos MD 420 [facility] 493 [place], [place] [address] documented as of this encounter Visit Diagnoses Not on filedocumented in this encounter Care Teams Route Rider Relationship Specialty Start Date End Date No Ref-Primary, Physician PCP - General 02/01/14 03/20/14 Joaquina Odonnell MD PCP - General Family Practice 03/21/14 08/03/22 Kristin Merino MD 420 [facility] 493 [place] [address] PCP - General Internal Medicine 08/04/22 Fredy Liang MD Referring Physician Urology 02/02/14 Nik Mackey MD [facility] [address] [place] [address] Referring Physician Ophthalmology 08/24/15 Coleman Davalos MD 420 [facility] 493 [place] [address] MD Ophthalmology 08/24/15 Coleman Davalos MD 420 [facility] [address] [place] [address] Assigned PCP 07/09/22 08/05/23 Abebe Hernandez MD [address] [place] [address] Urology 02/27/23 Chago Katz MD [address] [place] [address] Assigned Surgical Provider 03/28/23 Yasmeen Oleary PA-C [address] [place] [address] Assigned Neuroscience Provider 05/04/24 06/03/24 Yemi Deleon PA-C [address] [place] [address] Assigned Neuroscience Provider 06/04/24 Love Mcclelland PA-C [address] [place] [address] Physician Mechanical Expert Physician Mechanical Expert - Medical 11/29/24 12/10/24 Naomi Montes [facility] [address] [place] [phone] 11/29/24 12/10/24 documented as of this encounter
--- OUTSIDE RECORDS SUMMARY | 2025-06-06 15:20 | XMS_ITS | Encounter Summary ---
Author Organization [facility] Address [address] [place] [address] Care Team Providers Care Fiscal Assistant Name Role Phone No Ref-Primary, Physician Primary Care Provider Unavailable Fredy Liang MD Unavailable Unavailable VtJoaquina schilling MD Primary Care Provider [facility] Nik Mackey MD Unavailable [phone] Coleman Davalos MD Unavailable [phone] Kristin Merino MD Primary Care Provider [phone] Coleman Davalos MD Unavailable [phone] Abebe Hernandez MD Unavailable [phone] Chago Katz MD Unavailable [phone] Yasmeen Oleary PA-C Unavailable [phone] Yemi Deleon PA-C Unavailable [phone] Love Mcclelland PA-C Unavailable [phone] Naomi Montes [facility] Unavailable Encounter Details Date Type Department Care Team (Late st Contact Info) Description 02/23/2007 Clinic Report (Billet Header) [address] [phone] Verna Waldron MD NO INFO AVAILABLE 09/24/2022 Social History Tobacco Use Types Packs/Day Years Used Date Smoking Tobacco: Never Assessed Comments Unknown Sex and Gender Information Value Date Recorded Sex Assigned at Not on file Legal Sex Female 3:26 AM SHOCK ABSORPTION FLOOR LAYER Gender Identity Not on file Sexual Orientation Not on file documented as of this encounter Progress Notes * Verna Waldron MD - 06/05/2012 4:35 PM CST CC/HPI: None Current Medication: Amitriptyline 10 mg Tab, 2 Tablet, Oral, QHS, 90 days, 3 refills, for a total of 180, start on December 02, 2006 and end on November 27, 2007. Multivitamins & Minerals #11-Folic Acid 5 mg Tab, Oral and end on June 14, 2008. Melatonin Oral, Oral and end on June 14, 2008. Lisinopril 10 mg Tab, 1 Tablet, Oral, QD and end on August 12, 2007. Amitriptyline 10 mg Tab, 1 Tablet, Oral, QHS and end on August 12, 2007. ROS: None Vital Signs: data collected on 02/23/2007 05:02:43 PM by Kat Plunkett weight is 198 pounds 5.92 ounces clothed respiration rate is 18 bpm quiet blood pressure at Left Arm while Sitting is 112/74 mmHg PE: None Dx: (250.00) - C - Diabetes mellitus, type II controlled 780.79 Fatigue 719.49 JOINT PAIN MULT JTS 704.8 OT HAIR DISEASE (401.9) - C - Hypertension Rx: Lipitor 10 mg Tab, 1/2 Tablet, PO, QD, 30 days, 11 refills, for a total of 15. Plan: None Patient Instructions: None documented in this encounter Plan of Treatment Upcoming Encounters Date Type Department Care Team (Late st Contact Info) Description 06/12/2025 1:20 PM SHOCK ABSORPTION FLOOR LAYER Ancillary Procedure [facility] [address] [facility] [address] [place] [address] Chago Katz MD [address] [facility] [address] [place], [place] [address] 06/13/2025 3:00 PM SHOCK ABSORPTION FLOOR LAYER Infusion Therapy Visit [facility] [address] [place] [phone] Nate Beauchamp MD [address] [facility] 162 [place] [address] 06/16/2025 11:15 AM SHOCK ABSORPTION FLOOR LAYER Virtual Visit [facility] [place] [address] [facility] [address] [place] [phone] Chago Katz MD [address] [facility] 500 [place], [place] [address] 07/11/2025 3:00 PM SHOCK ABSORPTION FLOOR LAYER Infusion Therapy Visit [facility] [address] [place] [address] [place] [address] Nate Beauchamp MD [address] [facility] 162 [place], [place] [address] 08/14/2025 12:30 PM SHOCK ABSORPTION FLOOR LAYER Office Visit [facility] Eye [place] [facility] [address] [facility] 9th Fl Clin 9A [place] [phone] Coleman Davalos MD [address] [address] documented as of this encounter Visit Diagnoses Not on filedocumented in this encounter Care Teams Fiscal Assistant Relationship Specialty Start Date End Date No Ref-Primary, Physician PCP - General 02/01/14 03/20/14 Joaquina Odonnell MD PCP - General Family Practice 03/21/14 08/03/22 Kristin Merino MD [address] [place] [address] 493 [place] [address] PCP - General Internal Medicine 08/04/22 Fredy Liang MD Referring Physician Urology 02/02/14 Nik Mackey MD [facility] [address] [place], [place] [address] Referring Physician Ophthalmology 08/24/15 Coleman Davalos MD [address] [facility] 493 [place], [place] [address] Ophthalmology 08/24/15 Coleman Davalos MD [address] [facility] 493 [place], [place] [address] Assigned PCP 07/09/22 08/05/23 Abebe Hernandez MD [address] [place] [address] Urology 02/27/23 Chago Katz MD [address] [place] [address] Assigned Surgical Provider 03/28/23 Yasmeen Oleary PA-C [address] [place] [address] Assigned Neuroscience Provider 05/04/24 06/03/24 Yemi Deleon PA-C [address] [place] [address] Assigned Neuroscience Provider 06/04/24 Love Mcclelland PA-C [address] [place] [address] Physician Reservoir Engineer Physician Reservoir Engineer - Medical 11/29/24 12/10/24 Naomi Montes [facility] [id number] [place] [phone] 11/29/24 12/10/24 documented as of this encounter
--- OUTSIDE RECORDS SUMMARY | 2025-06-06 15:20 | XMS_ITS | Encounter Summary ---
Author Organization [facility] Address [address] [place] [address] Care Team Providers Care Motion Picture Camera Operator Name Role Phone No Ref-Primary, Physician Primary Care Provider Unavailable Fredy Liang MD Unavailable Unavailable ArJoaquina schilling MD Primary Care Provider [facility] Nik Mackey MD Unavailable [phone] Coleman Davalos MD Unavailable [phone] Kristin Merino MD Primary Care Provider [phone] Coleman Davalos MD Unavailable [phone] Abebe Hernandez MD Unavailable [phone] Chago Katz MD Unavailable [phone] Yasmeen Oleary PA-C Unavailable [phone] Yemi Deleon PA-C Unavailable [phone] Love Mcclelland PA-C Unavailable [phone] Naomi Montes [facility] Unavailable Encounter Details Date Type Department Care Team (Late st Contact Info) Description 08/03/2007 Clinic Report (Lidar Analyst) [address] [phone] Verna Waldron MD NO INFO AVAILABLE 09/24/2022 Social History Tobacco Use Types Packs/Day Years Used Date Smoking Tobacco: Never Assessed Comments Unknown Sex and Gender Information Value Date Recorded Sex Assigned at Not on file Legal Sex Female 3:26 AM REPAIR TECH Gender Identity Not on file Sexual Orientation Not on file documented as of this encounter Progress Notes * Verna Waldron MD - 06/05/2012 2:50 PM CST CC/HPI: fax to Dr Rios She presented with Lab/XRay Only. Current Medication: Amitriptyline 10 mg Tab, 2 Tablet, Oral, QHS, 90 days, 3 refills, for a total of 180, start on December 02, 2006 and end on November 27, 2007. Lisinopril 10 mg Tab, 1 Tablet, Oral, QD, 30 days, 1 refills, for a total of 30, start on June 08, 2007 and end on August 07, 2007. Multivitamins & Minerals #11-Folic Acid 5 mg Tab, Oral and end on June 14, 2008. Lipitor 10 mg Tab, 1/2 Tablet, PO, QD, 30 days, 11 refills, for a total of 15, start on February 23, 2007 and end on August 12, 2007. Melatonin Oral, Oral and end on June 14, 2008. Lisinopril 10 mg Tab, 1 Tablet, Oral, QD and end on August 12, 2007. Amitriptyline 10 mg Tab, 1 Tablet, Oral, QHS and end on August 12, 2007. FreeStyle Test Strips, In Vitro, as directed, 100 days, 11 refills, for a total of 100, start on July 30, 2007, end on February 11, 2009, discontinued because: Discontinued and Changed meter. ROS: None PE: None Dx: v58.69 Long-term use of high-risk meds Rx: None Plan: None Patient Instructions: None IR TECH documented in this encounter Plan of Treatment Upcoming Encounters Date Type Department Care Team (Late st Contact Info) Description 06/12/2025 1:20 PM REPAIR TECH Ancillary Procedure [address] [place] [address] Chago Katz MD [address] [place] [address] 06/13/2025 3:00 PM REPAIR TECH Infusion Therapy Visit [address] [place] [phone] Nate Beauchamp MD [address] [place], [place] [address] 06/16/2025 11:15 AM REPAIR TECH Virtual Visit [facility] [place] [address] [facility] [address] [place] [phone] Chago Katz MD [address] [place] [address] 07/11/2025 3:00 PM REPAIR TECH Infusion Therapy Visit [address] [place] [phone] Nate Beauchamp MD [address] [facility] [address] [facility] 162 [place] [address] 08/14/2025 12:30 PM REPAIR TECH Office Visit [facility] - [facility] [address] [facility] 9th Fl Clin 9A [place] [phone] Coleman Davalos MD [address] [facility] 493 [place], [place] [address] documented as of this encounter Visit Diagnoses Not on filedocumented in this encounter Care Teams Motion Picture Camera Operator Relationship Specialty Start Date End Date No Ref-Primary, Physician PCP - General 02/01/14 03/20/14 Joaquina Odonnell MD PCP - General Family Practice 03/21/14 08/03/22 Kristin Merino MD [address] [address] PCP - General Internal Medicine 08/04/22 Fredy Liang MD Referring Physician Urology 02/02/14 Nik Mackey MD [facility] [address] [place] [address] Referring Physician Ophthalmology 08/24/15 Coleman Davalos MD [address] [place] [address] MD Ophthalmology 08/24/15 Coleman Davalos MD [address] [place] [address] Assigned PCP 07/09/22 08/05/23 Abebe Hernandez MD [address] [place] [address] Urology 02/27/23 Chago Katz MD [address] [place] [address] Assigned Surgical Provider 03/28/23 Yasmeen Oleary PA-C [address] [place], [place] [address] Assigned Neuroscience Provider 05/04/24 06/03/24 Yemi Deleon PA-C [address] [place] [address] Assigned Neuroscience Provider 06/04/24 Love Mcclelland PA-C [address] [place] [address] Physician Lining Machine Tender Physician Lining Machine Tender - Medical 11/29/24 12/10/24 Naomi Montes [facility] [address] [place] [phone] 11/29/24 12/10/24 documented as of this encounter
--- OUTSIDE RECORDS SUMMARY | 2025-06-06 15:20 | XMS_ITS | Encounter Summary ---
Author Organization [facility] Address [address] [place] [address] Care Team Providers Care Video News Editor Name Role Phone No Ref-Primary, Physician Primary Care Provider Unavailable Fredy Liang MD Unavailable Unavailable [facility] Primary Care Provider [facility] Nik Mackey MD Unavailable [phone] Coleman Davalos MD Unavailable [phone] Kristin Merino MD Primary Care Provider Coleman Davalos MD Unavailable [phone] Abebe Hernandez MD Unavailable [phone] Chago Katz MD Unavailable Yasmeen Oleary PA-C Unavailable [phone] Yemi Deleon PA-C Unavailable Love Mcclelland PA-C Unavailable [phone] Naomi Montes [facility] Unavailable Encounter Details Date Type Department Care Team (Late st Contact Info) Description 03/25/2010 Clinic Report (Screen Print Operator) [address] [phone] Ashley Gibbons, MOBILE UI DESIGNER [address] [facility] [place] [address] Social History Tobacco Use Types Packs/Day Years Used Date Smoking Tobacco: Never Assessed Comments Unknown Sex and Gender Information Value Date Recorded Sex Assigned at Not on file Legal Sex Female 3:26 AM LOAN DOCUMENTS CLOSER Gender Identity Not on file Sexual Orientation Not on file documented as of this encounter Progress Notes * Ashley Gibbons, SANJUANA - 06/05/2012 2:30 AM CST CC/HPI: urinary twinges mostly since 4 days ago She presented with flank pain. starts in left flank and radiates to LLQ of abdomen. It is located on the left. It is radiating to the inguinal area. The symptom is described as aching, acute, constant at some level and stable. The symptom is sudden in onset and ongoing. The symptom started 3 days ago. The complaint moderately limits activities. Pertinent other conditions include nephrolithiasis last stone was 06/20---resolved with surgery. Significant medications include pain medications prn Advil for this pain. Important triggers include no known associated factors. Current Medication: Trazodone 50 mg Tab, 1/2 Tablet(s), PO, daily, 30 days, 10 refills, for a total of 15, start on June 18, 2009, end on March 25, 2010 and discontinued because: Discontinued. Ambien 10 mg Tab, 1/2 Tablet(s), PO, QHS, 30 days, 11 refills, for a total of 15, start on June 18, 2009, end on June 12, 2010 and by Savanna Rios. ROS: Constitutional: The patient complained of fever (low grade around 99). Gastrointestinal: The patient complained of nausea (queasy) but denied vomiting. Genitourinary/Nephrology: The patient complained of dysuria (mild twinge with urination) but denied urinary frequency, urinary retention/hesitancy, urinary urgency and vaginal discharge (but itching and would like Diflucan). Musculoskeletal: The patient complained of back pain (flank). Dermatologic: The patient denied rash. Vital Signs: data collected on 03/25/2010 04:07:21 PM by Ashley Gibbons, C.N.P. weight is 171 pounds 8.00 ounces clothed temperature is 98.9 F sitting heart rate is 72 bpm regular blood pressure at Left Arm while Sitting is 130/70 mmHg PE: Constitutional: GENERAL APPEARANCE: Overall: well nourished, well developed and in no acute distress. Integument: INSPECTION OF SKIN: Overall: no rash, lesions. Psychiatric: ORIENTATION/CONSCIOUSNESS: Overall: oriented to person, place and time; BEHAVIOR/PSYCHOMOTOR ACTIVITY: Overall: no tics, normal psychomotor activity; MOOD AND AFFECT: Mood: anxious; THOUGHT: Content of thought: preoccupations. Dx: (789.00) - C - Flank pain Rx: Diflucan 150 mg Tab, 1 Tablet(s), PO, 1 days, 2 refills, for a total of 1, start on March 25, 2010, end on March 27, 2010. Plan: Low grade temp if any so doubt pylonephritis. Suspect kidney stones with previous hx. Will check CT stone run. Scheduled for tonight. Wants to see different urologist than last Jun. but I'm unable to find a different group that goes to [place]. Gave pt a card for [facility] and she can decide who to f/u up with depending on CT result. UA negative today and pt informed. Creatinine normal last month. Will send info about dietary influences on kidney stones as is eating much protein right now and avoiding grains due to gluten allergy which may contribute to stones. She was given this form: 'Patient Medication Summary'. Patient Instructions: None * Ashley Gibbons, SANJUANA - 06/05/2012 2:30 AM CST CC/HPI: None Current Medication: Trazodone 50 mg Tab, 1/2 Tablet(s), PO, daily, 30 days, 10 refills, for a total of 15, start on June 18, 2009, end on March 25, 2010 and discontinued because: Discontinued. Diflucan 150 mg Tab, 1 Tablet(s), PO, 1 days, 2 refills, for a total of 1, start on March 25, 2010 and end on March 27, 2010. Ambien 10 mg Tab, 1/2 Tablet(s), PO, QHS, 30 days, 11 refills, for a total of 15, start on June 18, 2009, end on June 12, 2010 and by Savanna Rios. ROS: None PE: None Dx: (592.0) - C - Kidney stones (593.9) - C - Renal insufficiency, acute Rx: None Plan: None Patient Instructions: None documented in this encounter Plan of Treatment Upcoming Encounters Date Type Department Care Team (Late st Contact Info) Description 06/12/2025 1:20 PM LOAN DOCUMENTS CLOSER Ancillary Procedure [facility] [address] [facility] [address] [place] [phone] Chago Katz MD [address] [place], [place] [address] 06/13/2025 3:00 PM LOAN DOCUMENTS CLOSER Infusion Therapy Visit [facility] [address] [place] [phone] Nate Beauchamp MD [address] [place], [place] [address] 06/16/2025 11:15 AM LOAN DOCUMENTS CLOSER Virtual Visit [facility] Urology [facility] [address] [facility] [address] [place] [phone] Chago Katz MD [address] [place], [place] [address] 07/11/2025 3:00 PM LOAN DOCUMENTS CLOSER Infusion Therapy Visit [facility] [address] [place] [phone] Nate Beauchamp MD [address] [place], [place] [address] 08/14/2025 12:30 PM LOAN DOCUMENTS CLOSER Office Visit [facility] Eye [facility] [address] [facility] 9th Fl Clin 9A [place] [address] Coleman Davalos MD [address] [address] documented as of this encounter Visit Diagnoses Not on filedocumented in this encounter Care Teams Video News Editor Relationship Specialty Start Date End Date No Ref-Primary, Physician PCP - General 02/01/14 03/20/14 Joaquina Odonnell MD PCP - General Family Practice 03/21/14 08/03/22 Kristin Merino MD [address] [place] [address] PCP - General Internal Medicine 08/04/22 Fredy Liang MD Referring Physician Urology 02/02/14 Nik Mackey MD [facility] [address] [facility] [place] [address] Referring Physician Ophthalmology 08/24/15 Coleman Davalos MD [address] [place] [address] Ophthalmology 08/24/15 Coleman Davalos MD [address] [place] [address] Assigned PCP 07/09/22 08/05/23 Abebe Hernandez MD [address] [place] [address] Urology 02/27/23 Chago Katz MD [address] [place] [address] Assigned Surgical Provider 03/28/23 Yasmeen Oleary PA-C [address] [place] [address] Assigned Neuroscience Provider 05/04/24 06/03/24 Yemi Deleno PA-C [address] [place] [address] Assigned Neuroscience Provider 06/04/24 Love Mcclelland PA-C [address] [place] [address] Physician Transmission Calibration Engineer Physician Transmission Calibration Engineer - Medical 11/29/24 12/10/24 Naomi Montes [facility] [address] [place] [phone] 11/29/24 12/10/24 documented as of this encounter
--- OUTSIDE RECORDS SUMMARY | 2025-06-06 15:20 | XMS_ITS | Encounter Summary ---
Author Organization [place] Address [address] [place] [address]249 Care Team Providers Care Natural History Collections Curator Name Role Phone No Ref-Primary, Physician Primary Care Provider Unavailable Fredy Liang MD Unavailable Unavailable OkJoaquina schilling MD Primary Care Provider [facility] Nik Mackey MD Unavailable [phone] Coleman Davalos MD Unavailable [phone] Kristin Merino MD Primary Care Provider [phone] Coleman Davalos MD Unavailable [phone] Abebe Hernandez MD Unavailable [phone] Chago Katz MD Unavailable [phone] Yasmeen Oleary PA-C Unavailable [phone] Yemi Deleon PA-C Unavailable [phone] Love Mcclelland PA-C Unavailable [phone] Naomi Montes [facility] Unavailable Encounter Details Date Type Department Care Team (Late st Contact Info) Description 05/26/2008 Clinic Report (Secretary Book Keeper) [address] [phone] Verna Waldron MD NO INFO AVAILABLE 09/24/2022 Social History Tobacco Use Types Packs/Day Years Used Date Smoking Tobacco: Never Assessed Comments Unknown Sex and Gender Information Value Date Recorded Sex Assigned at Not on file Legal Sex Female 3:26 AM FAMILY AND MARRIAGE COUNSELLOR Gender Identity Not on file Sexual Orientation Not on file documented as of this encounter Progress Notes * Verna Waldron MD - 06/05/2012 11:10 AM CST CC/HPI: She next presented with Lab/XRay Only. Current Medication: Mepron 750 mg/5 mL Oral Susp, 5 Milliliters, PO, BID, 30 days, 11 refills, start on August 12, 2007, end on June 14, [address] Yates. Azithromycin 250 mg Tab, 1 Tablet, PO, BID, 30 days, 11 refills, for a total of 60, start on August 12, 2007, end on June 14, 2008, Dr. yates and not taking. Progesterone Micronized 200 mg Cap, 1/4 Capsule, PO, QD, 30 days, 10 refills, for a total of 8, start on August 12, 2007, end on June 14, [address] Yates. Nystatin 500,000 unit Tab, 2 Tablet, PO, QID, 30 days, 11 refills, for a total of 240, start on August 12, 2007, end on June 14, [address] Yates. [place] Thyroid 30 mg Tab, 1/2 to 2 Tablet, PO, QD, 30 days, 11 refills, start on August 12, 2007, end on June 14, [address] Yates titrating up to 2 pills. Melatonin Oral, Oral and end on June 14, 2008. Ambien 10 mg Tab, 1 Tablet, PO, QHS, 30 days, 11 refills, for a total of 30, start on August 12, 2007 and end on August 06, 2008. Multivitamins & Minerals #11-Folic Acid 5 mg Tab, Oral and end on June 14, 2008. FreeStyle Test Strips, In Vitro, as directed, 100 days, 11 refills, for a total of 100, start on July 30, 2007, end on February 11, 2009, discontinued because: Discontinued and Changed meter. ROS: None PE: None Dx: (v58.69) - C - Long-term use of high-risk meds (244.9) - C - Hypothyroidism (780.79) - C - Fatigue (250.00) - C - Diabetes mellitus, type II controlled Rx: None Plan: None Patient Instructions: None LY AND MARRIAGE COUNSELLOR documented in this encounter Plan of Treatment Upcoming Encounters Date Type Department Care Team (Late st Contact Info) Description 06/12/2025 1:20 PM FAMILY AND MARRIAGE COUNSELLOR Ancillary Procedure [facility] [address] [facility] [address] [place] [phone] Chago Katz MD [address] [place] [id number] 06/13/2025 3:00 PM FAMILY AND MARRIAGE COUNSELLOR Infusion Therapy Visit [address] [place] [phone] Nate Beauchamp MD [address] [place], [place] [address] 06/16/2025 11:15 AM FAMILY AND MARRIAGE COUNSELLOR Virtual Visit [facility] Urology [facility] [address] [facility] [address] [place] [phone] Chago Katz MD [address] [place] [address] [place] [id number] 07/11/2025 3:00 PM FAMILY AND MARRIAGE COUNSELLOR Infusion Therapy Visit [facility] [address] [place] [address] [address] [place] [phone] Nate Beauchamp MD [address] [facility] 162 [place], [place] [address]335 08/14/2025 12:30 PM FAMILY AND MARRIAGE COUNSELLOR Office Visit [facility] [address] [place] [address] Coleman Davalos MD [address] 844805 documented as of this encounter Visit Diagnoses Not on filedocumented in this encounter Care Teams Natural History Collections Curator Relationship Specialty Start Date End Date No Ref-Primary, Physician PCP - General 02/01/14 03/20/14 Joaquina Odonnell MD PCP - General Family Practice 03/21/14 08/03/22 Kristin Merino MD [address] [place] [address] PCP - General Internal Medicine 08/04/22 Fredy Liang MD Referring Physician Urology 02/02/14 Nik Mackey MD [facility] [address] [place] [address] Referring Physician Ophthalmology 08/24/15 Coleman Davalos MD [address] [place] [address] Ophthalmology 08/24/15 Coleman Davalos MD [address] [place] [address] Assigned PCP 07/09/22 08/05/23 Abebe Hernandez MD [address] [place] [address] [place] [address] Urology 02/27/23 Chago Katz MD [address] [place] [address] [place] [address] Assigned Surgical Provider 03/28/23 Yasmeen Oleary PA-C [address] [facility] [place] [address] Assigned Neuroscience Provider 05/04/24 06/03/24 Yemi Deleon PA-C [address] [facility] [address] [place] [address] Assigned Neuroscience Provider 06/04/24 Love Mcclelland PA-C 1700 [place] [address] Physician Renal Medicine Physician Physician Renal Medicine Physician - Medical 11/29/24 12/10/24 Naomi Montes [facility] [address] [place] [phone] 11/29/24 12/10/24 documented as of this encounter
--- OUTSIDE RECORDS SUMMARY | 2025-06-06 15:20 | XMS_ITS | Encounter Summary ---
Author Organization [place] Address [address] [place] [address] 19305 Care Team Providers Care Senior Research Manager Name Role Phone No Ref-Primary, Physician Primary Care Provider Unavailable Fredy Liang MD Unavailable Unavailable GaJoaquina schilling MD Primary Care Provider [facility] Nik Mackey MD Unavailable [phone] Coleman Davalos MD Unavailable [phone] Kristin Merino MD Primary Care Provider [phone] Coleman Davalos MD Unavailable [phone] Abebe Hernandez MD Unavailable [phone] Chago Katz MD Unavailable [phone] Yasmeen Oleary PA-C Unavailable [phone] Yemi Deleon PA-C Unavailable [phone] Love Mcclelland PA-C Unavailable [phone] Naomi Montes [facility] Unavailable Encounter Details Date Type Department Care Team (Late st Contact Info) Description 08/12/2007 Clinic Report (Nut Roaster Helper) [address] [phone] Verna Waldron MD NO INFO AVAILABLE 09/24/2022 Social History Tobacco Use Types Packs/Day Years Used Date Smoking Tobacco: Never Assessed Comments Unknown Sex and Gender Information Value Date Recorded Sex Assigned at Not on file Legal Sex Female 3:26 AM 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 Health Care with MAR[facility]. She presented with well woman exam (40-65 years). Pap smear history is significant for last normal performed on 03-31-06, thin prep and normal results. Menstrual history includes last menstrual period 12-11-04 and amenorrhea post menopausal. Lifestyle is remarkable for no history of physical abuse, no history of sexual abuse, no history of verbal abuse, regular seatbelt use, abnormal sleep patterns and satisfactory marriage/partner relationship. Current contraception practice includes bilateral tubal ligation. Health maintenance issues include overweight and balanced nutrition. Obstetrical history reveals 6 total pregnancies, 6 full term and 6 living children. Cardiovascular risk factors include family history of cardiovascular disease and hypertension. Patient received health guidance in self-breast exam and tobacco, drugs and alcohol avoidance. The patient is sexually active. The patient received tetanus-diphtheria booster 01/21/05 and influenza vaccine (annually over 50 y.o.) dclines pneumovax. Current Medication: Amitriptyline 10 mg Tab, 2 Tablet, Oral, QHS, 90 days, 3 refills, for a total of 180, start on December 02, 2006 and end on November 27, 2007. Lipitor 10 mg Tab, 1/2 Tablet, PO, QD, 30 days, 11 refills, for a total of 15, start on February 23, 2007, end on August 12, 2007 and patient dc'ed on her own. Multivitamins & Minerals #11-Folic Acid 5 mg Tab, Oral and end on June 14, 2008. Melatonin Oral, Oral and end on June 14, 2008. Lipitor 10 mg Tab, 1/2 Tablet, PO, QD, 30 days, 11 refills, for a total of 15, start on February 23, 2007 and end on August 12, 2007. Lisinopril 10 mg Tab, 1 Tablet, Oral, QD, end on August 12, 2007 and patient dc'ed on her own. Lisinopril 10 mg Tab, 1 Tablet, Oral, QD and end on August 12, 2007. Amitriptyline 10 mg Tab, 1 Tablet, Oral, QHS and end on August 12, 2007. Amitriptyline 10 mg Tab, 1 Tablet, Oral, QHS and end on August 12, 2007. FreeStyle Test Strips, In Vitro, as directed, 100 days, 11 refills, for a total of 100, start on July 30, 2007, end on February 11, 2009, discontinued because: Discontinued and Changed meter. ROS: None Vital Signs: data collected on 08/12/2007 01:07:27 PM by Viktoriya Fajardo weight is 184 pounds 1.92 ounces clothed height is 6 feet body mass index is 28.41 Kg/m2 respiration rate is 18 bpm quiet sitting heart rate is 84 bpm radial regular blood pressure at Right Arm while Sitting is 102/60 mmHg PE: None Dx: (V70.0) - C - Routine Medical Exam (250.00) - C - Diabetes mellitus, type II controlled (272.4) - C - Hyperlipidemia (244.9) - C - Hypothyroidism 088.81 Lyme disease (780.52) - C - Insomnia 088.82 BABESIOSIS (V72.31) - C - Screening, pap 780.71 Chronic fatigue syndrome Rx: Ambien 10 mg Tab, 1 Tablet, PO, QHS, 30 days, 11 refills, for a total of 30. [place] Thyroid 30 mg Tab, 1/2 to 2 Tablet, PO, QD, 30 days, 11 refills, Dr. Yates titrating up to 2 pills. Azithromycin 250 mg Tab, 1 Tablet, PO, BID, 30 days, 11 refills, for a total of 60, Dr. yates. Mepron 750 mg/5 mL Oral Susp, 5 Milliliters, PO, BID, 30 days, 11 refills, Dr. Yates. Nystatin 500,000 unit Tab, 2 Tablet, PO, QID, 30 days, 11 refills, for a total of 240, Dr. Yates. Progesterone Micronized 200 mg Cap, 1/4 Capsule, PO, QD, 30 days, 10 refills, for a total of 8, Dr. Yates. Plan: PE and Pap A return visit is indicated in 1year. Patient Instructions: None RONMENTAL HEALTH SAFETY ENGINEER documented in this encounter Plan of Treatment Upcoming Encounters Date Type Department Care Team (Late st Contact Info) Description 06/12/2025 1:20 PM ENVIRONMENTAL HEALTH SAFETY ENGINEER Ancillary Procedure [facility] [address] [place] [address] [place] [phone] Chago Katz MD [address] [place] [address] 06/13/2025 3:00 PM ENVIRONMENTAL HEALTH SAFETY ENGINEER Infusion Therapy Visit [address] [place] [phone] Nate Beauchamp MD [address] [facility] 162 [place], [place] [address] 06/16/2025 11:15 AM ENVIRONMENTAL HEALTH SAFETY ENGINEER Virtual Visit [facility] Urology [facility] [address] [place] [phone] Chago Katz MD [address] [place], [place] [address] 07/11/2025 3:00 PM ENVIRONMENTAL HEALTH SAFETY ENGINEER Infusion Therapy Visit [facility] [address] [place] [address] [address] [place] [phone] Nate Beauchamp MD [address] [place], [place] [address] 08/14/2025 12:30 PM ENVIRONMENTAL HEALTH SAFETY ENGINEER Office Visit [facility] Eye [facility] [address] [facility] 9th Fl Clin [address] [place] [phone] Coleman Davalos MD 420 [facility] [address] [place] [address] documented as of this encounter Visit Diagnoses Not on filedocumented in this encounter Care Teams Senior Research Manager Relationship Specialty Start Date End Date No Ref-Primary, Physician PCP - General 02/01/14 03/20/14 Joaquina Odonnell MD PCP - General Family Practice 03/21/14 08/03/22 Kristin Merino MD [address] [place] [address] PCP - General Internal Medicine 08/04/22 Fredy Liang MD Referring Physician Urology 02/02/14 Nik Mackey MD [facility] [address] [place], [place] [address] Referring Physician Ophthalmology 08/24/15 Coleman Davalos MD [address] [place] [address] 847985 Ophthalmology 08/24/15 Coleman Davalos MD [address] [place] [address] 41319 Assigned PCP 07/09/22 08/05/23 Abebe Hernandez MD [address] [place], [place] 837[address] Urology 02/27/23 Chago Katz MD [address] [place] [address] Assigned Surgical Provider 03/28/23 Yasmeen Oleary, PAJuan DavidC [address]45 [facility] [place] [address] Assigned Neuroscience Provider 05/04/24 06/03/24 Yemi Deleon PA-C [address] [place] [address] [place] 234785 Assigned Neuroscience Provider 06/04/24 Love Mcclelland PA-C 1700 [place] [address] Physician [employer] [place] Physician [employer] - Medical 11/29/24 12/10/24 Naomi Montes [facility] [id number] [place] [phone] 11/29/24 12/10/24 documented as of this encounter
--- OUTSIDE RECORDS SUMMARY | 2025-06-06 15:20 | XMS_ITS | Encounter Summary ---
Author Organization [place] Address [address] [place] [address]286 Care Team Providers Care Funeral Director/Embalmer Name Role Phone No Ref-Primary, Physician Primary Care Provider Unavailable Fredy Liang MD Unavailable Unavailable [facility] Primary Care Provider [facility] Nik Mackey MD Unavailable [phone] Colemna Davalos MD Unavailable [phone] Kristin Merino MD Primary Care Provider [phone] Coleman Davalos MD Unavailable [phone] Abebe Hernandez MD Unavailable [phone] Chago Katz MD Unavailable [phone] Yasmeen Oleary PA-C Unavailable [phone] Yemi Deleon PA-C Unavailable [phone] Love Mcclelland PA-C Unavailable [phone] Naomi Montes [facility] Unavailable Encounter Details Date Type Department Care Team (Late st Contact Info) Description 03/17/2014 MyC Medical Advice [facility] 4TH FLOOR, [address] 420 [facility] [address] [place] [address] Tanesha Marquez LPN Social History Tobacco Use Types Packs/Day Years Used Date Smoking Tobacco: Never Smokeless Tobacco: Never Alcohol Use Standard Drinks/Week Comments No 0 (1 standard drink = 0.6 oz pur e alcohol) Comments Unknown Sex and Gender Information Value Date Recorded Sex Assigned at Not on file Legal Sex Female 3:26 AM COLOR FINISHER Gender Identity Not on file Sexual Orientation Not on file documented as of this encounter Plan of Treatment Upcoming Encounters Date Type Department Care Team (Late st Contact Info) Description 06/12/2025 1:20 PM COLOR FINISHER Ancillary Procedure [facility] [address] [facility] [address] [place] [phone] Chago Katz MD [address] [place], [place] [address] 06/13/2025 3:00 PM COLOR FINISHER Infusion Therapy Visit [address] [place] [phone] Nate Beauchamp MD [address] [place], [place] [address]48[address] 06/16/2025 11:15 AM COLOR FINISHER Virtual Visit [facility] Urology [facility] [address] [facility] [address] [place] [phone] Chago Katz MD [address] [place] [address] [place] [address] 07/11/2025 3:00 PM COLOR FINISHER Infusion Therapy Visit [address] [place] [phone] Nate Beauchamp MD [address] [place], [place] [address] 08/14/2025 12:30 PM COLOR FINISHER Office Visit [facility] Eye Clinic [address] Clin [address] [place] [address] Coleman Davalos MD [address] 1057[address] documented as of this encounter Visit Diagnoses Not on filedocumented in this encounter Care Teams Funeral Director/Embalmer Relationship Specialty Start Date End Date No Ref-Primary, Physician PCP - General 02/01/14 03/20/14 Joaquina Odonnell MD PCP - General Family Practice 03/21/14 08/03/22 Kristin Merino MD [address] [place] [address] PCP - General Internal Medicine 08/04/22 Fredy Liang MD Referring Physician Urology 02/02/14 Nik Mackey MD [facility] [address] [place] [address] Referring Physician Ophthalmology 08/24/15 Coleman Davalos MD [address] [place] [address] Ophthalmology 08/24/15 Coleman Davalos MD [address] [place] [address] Assigned PCP 07/09/22 08/05/23 Abebe Hernandez MD [address] [place] 48[address] Urology 02/27/23 Chago Katz MD [address] [place] [address] [place] [address] Assigned Surgical Provider 03/28/23 Yasmeen Oleary PA-C 6545 [facility] [place] [address] Assigned Neuroscience Provider 05/04/24 06/03/24 Yemi Deleon PA-C 6545 [facility] [address] [place] [address] Assigned Neuroscience Provider 06/04/24 Love Mcclelland PA-C [address]00 [place] [address] Physician Institutional Asset Manager Physician Institutional Asset Manager - Medical 11/29/24 12/10/24 Naomi Montes [facility] [id number] [place] [phone] 11/29/24 12/10/24 documented as of this encounter
--- OUTSIDE RECORDS SUMMARY | 2025-06-06 15:20 | XMS_ITS | Encounter Summary ---
Author Organization [place] Address [address] [place] [address] Care Team Providers Care Tobacco Hanger Name Role Phone Fredy Liang MD Unavailable Unavailable Joaquina Odonnell MD Primary Care Provider [facility] Nik Mackey MD Unavailable [phone] Coleman Davalos MD Unavailable [phone] Kristin Merino MD Primary Care Provider [phone] Coleman Davalos MD Unavailable [phone] Abebe Hernandez MD Unavailable [phone] Chago Katz MD Unavailable [phone] Yasmeen OlearyC Unavailable [phone] Yemi DeleonC Unavailable [phone] Love Mcclelland-C Unavailable [phone] Naomi Montes [facility] Unavailable Encounter Details Date Type Department Care Team (Late st Contact Info) Description 04/03/2014 MyC Medical Advice [facility] Comprehensive Renal Integrative Stone Program [facility] 4TH FLOOR, [address] 420 [facility] [place] [address] Neelam Joy MD [address] [facility] [address] [place] [address] Social History Tobacco Use Types Packs/Day Years Used Date Smoking Tobacco: Never Smokeless Tobacco: Never Alcohol Use Standard Drinks/Week Comments No 0 (1 standard drink = 0.6 oz pur e alcohol) Comments Unknown Sex and Gender Information Value Date Recorded Sex Assigned at Not on file Legal Sex Female 3:26 AM PRODUCT OWNER Gender Identity Not on file Sexual Orientation Not on file documented as of this encounter Plan of Treatment Upcoming Encounters Date Type Department Care Team (Late st Contact Info) Description 06/12/2025 1:20 PM PRODUCT OWNER Ancillary Procedure [facility] [address] [facility] [address] [place] [phone] Chago Katz MD [address] [place], [place] [address] 06/13/2025 3:00 PM PRODUCT OWNER Infusion Therapy Visit [address] [place] [address] Nate Beauchamp MD [address] [place], [place] [address] 06/16/2025 11:15 AM PRODUCT OWNER Virtual Visit [facility] Urology [facility] [address] [facility] [address] [place] [phone] Chago Katz MD [address] [place] [address] 07/11/2025 3:00 PM PRODUCT OWNER Infusion Therapy Visit [address] [place] [phone] Nate Beauchamp MD [address] [place], [place] [address] 08/14/2025 12:30 PM PRODUCT OWNER Office Visit [facility] Eye [facility] [address] [facility] [address] Clin [address] [place] [address] Coleman Davalos MD [address] [place] [address] documented as of this encounter Visit Diagnoses Not on filedocumented in this encounter Care Teams Tobacco Hanger Relationship Specialty Start Date End Date Joaquina Odonnell MD PCP - General Family Practice 03/21/14 08/03/22 Kristin Merino MD [address] [place] [address] PCP - General Internal Medicine 08/04/22 Fredy Liang MD Referring Physician Urology 02/02/14 Nik Mackey MD [facility] [address] [place] [address] Referring Physician Ophthalmology 08/24/15 Coleman Davalos MD [address] [place] [address] Ophthalmology 08/24/15 Coleman Davalos MD [address] [place] [address] Assigned PCP 07/09/22 08/05/23 Abebe Hernandez MD [address] [place] [address] Urology 02/27/23 Chago Katz MD [address] [place] [address] Assigned Surgical Provider 03/28/23 Yasmeen Oleary PA-C 6545 [facility] [place] [address] Assigned Neuroscience Provider 05/04/24 06/03/24 Yemi Deleon PA-C [address] [place] [address] Assigned Neuroscience Provider 06/04/24 Love Mcclelland PA-C [address]00 [place] [address] Physician Nuclear Power Reactor Operator Physician Nuclear Power Reactor Operator - Medical 11/29/24 12/10/24 Naomi Montes [facility] [address] [place] [phone] 11/29/24 12/10/24 documented as of this encounter
--- OUTSIDE RECORDS SUMMARY | 2025-06-06 15:20 | XMS_ITS ---
Author Name Interface, [id number] lity Address [address] [address] [facility] Address [address] [place] [address] Support Name Relationship Address Phone LAKIA WATERS Spouse Unknown Unavailable Allergies and Adverse Reactions Medication/Group Name Reaction Severity Date Dust mites 02/23/2024 epinephrine 02/23/2024 mold 02/23/2024 gluten 02/23/2024 Plan Date Type Value 02/23/2024 APPOINTMENT OV 20 MIN 02/23/2024 APPOINTMENT LAB 15 MIN 02/23/2024 LAB_ORDER LDH panel 02/23/2024 LAB_ORDER Ferritin panel 02/23/2024 LAB_ORDER CMP 02/23/2024 LAB_ORDER CBC w/ auto diff 10/23/2024 LAB_ORDER CMP 10/23/2024 LAB_ORDER CBC w/ auto diff 10/23/2024 LAB_ORDER CT neck soft tis ishmael w/ contrast 10/23/2024 LAB_ORDER CT orbit, sella w/ contrast Reason for Visit LAB 15 MIN Encounters Date Name 02/23/2024 Follicular non-Hodgk in's lymphoma (disorder) Diagnostic Results Date Type Test Units Lower Limit Upper Limit Result Flag Comments Status Ordered By Specimen Source Lab Address 02/22 Dinesh tin panel Dinesh tin ng/mL 11.1 264.0 40.40 FINAL Skyler David * [facility], [address] [id number] 0 02/22 LDH panel LDH U/L 120.0 246.0 253 High FINAL Skyler David * [facility], [address] [facility] [id number] 0 02/22 CMP Album in g/dL 3.5 5.0 3.8 FINAL Skyler Hernandez * [facility], [address] [facility] [id number] 0 02/22 CMP Alkal ine phosp hatas e U/L 36.0 125.0 134 High FINAL Skyler Hernandez * [facility], [address] [facility] [id number] 0 02/22 CMP ALT/S GPT U/L 0.0 34.0 28 FINAL Skyler Hernandez * [facility], [address] [id number] 0 02/22 CMP AST/S GOT U/L 14.0 36.0 61 High FINAL Skyler Hernandez * [facility], [address] [facility] [id number] 0 02/22 CMP BUN mg/dL 7.0 17.0 11.0 FINAL Skyler Hernandez * [facility], [address] [facility] [id number] 0 02/22 CMP Calci um mg/dL 8.4 10.2 9.2 FINAL Skyler Hernandez * [facility], [address] [facility] [id number] 0 02/22 CMP Chlor milan mmol/L 96.0 107.0 108 High FINAL Skyler Hernandez * [facility], [address] [facility] [id number] 0 02/22 CMP CO2 mmol/L 22.0 30.0 [...] hour stability window. FINAL Skyler Hernandez * [facility], [address] [facility] [address] [id number] 0 02/22 CMP Creat inine mg/dL 0.66 1.25 0.80 FINAL Skyler David * [facility], [facility] [address] [id number] 0 02/22 CMP GFR estim ate ml/min /1.73m ^2 79.5 GFR is calculate d using the CKD-EPI equation. FINAL Skyler David * [facility], [facility] [address] [id number] 0 02/22 CMP Gluco se mg/dL 74.0 100.0 194 High FINAL Skyler Hernandez * [facility], [address] [facility] [address] [id number] 0 02/22 CMP Potas sium mmol/L 3.5 5.1 4.3 FINAL Skyler Hernandez * [facility], [facility] [address] [id number] 0 02/22 CMP Sodiu m mmol/L 137.0 145.0 137 FINAL Skyler David * [facility], [address] [id number] 0 02/22 CMP Bilir ubin, total mg/dL 0.2 1.3 2.5 High FINAL Skyler Hernandez * [facility] [place], [address] [facility] [place] [id number] 0 02/22 CMP Total prote in g/dL 6.3 8.2 7.7 FINAL Skyler David * [facility] [place], [address] [facility] [place] [id number] 0 02/22 CBC w/ auto diff WBC K/uL 3.0 8.9 6.8 FINAL Skyler David [facility] [place], [address] [place] [id number] 0 Phone: () - 02/22 CBC w/ auto diff HGB g/dL 11.3 15.2 13.7 FINAL Skyler David [facility] [place], [address] [place] [id number] 0 Phone: () - 02/22 CBC w/ auto diff PLT K/uL 113.0 364.0 141 FINAL Skyler David [facility] [place], [address] [place] [phone] 0 Phone: () - 02/22 CBC w/ auto diff Dillan # (ANC) K/uL 1.6 6.6 3.1 FINAL Skyler David [facility] [place], [address] [place] [phone] 0 Phone: () - 02/22 CBC w/ auto diff Dillan % % 43.0 74.0 46.4 FINAL Skyler David [facility] [place], [address] [place] [id number] 0 Phone: () - 02/22 CBC w/ auto diff IG % % 0.0 0.5 0.1 FINAL Skyler David [facility] [place], [address] [place] [id number] 0 Phone: () - 02/22 CBC w/ auto diff IG # K/uL 0.0 0.03 0.01 FINAL Skyler [facility] [place], [address] [place] [phone] 0 Phone: () - 02/22 CBC w/ auto diff LY % % 14.0 41.0 38.0 FINAL Skylerkristen [facility] [place], [address] [place] [phone] 0 Phone: () - 02/22 CBC w/ auto diff MO % % 6.0 15.0 10.8 FINAL Skylerkristen [facility] [place], [address] [place] [id number] 0 Phone: () - 02/22 CBC w/ auto diff EO % % 0.0 7.0 3.4 FINAL Skylerkristen [facility] [place], [address] [place] [phone] 0 Phone: () - 02/22 CBC w/ auto diff BA % % 0.0 2.0 1.3 FINAL Skyler [facility] [place], [address] [place] [id number] 0 Phone: () - 02/22 CBC w/ auto diff LY # K/uL 0.4 3.6 2.6 FINAL Skyler [facility] [place], [address] [place] [phone] 0 Phone: () - 02/22 CBC w/ auto diff MO # K/uL 0.2 1.3 0.7 FINAL Skyler [facility] [place], [address] [place] [id number] 0 Phone: () - 02/22 CBC w/ auto diff EO # K/uL 0.0 0.6 0.2 FINAL Skyler [facility] [place], [address] [place] [id number] 0 Phone: () - 02/22 CBC w/ auto diff BA # K/uL 0.0 0.2 0.1 FINAL Skyler David [facility] [place], [address] [place] [id number] 0 Phone: () - 02/22 CBC w/ auto diff NRBC % #/100W BC 0.0 0.2 0.0 FINAL Skyler David [facility] [place], [address] [place] [id number] 0 Phone: () - 02/22 CBC w/ auto diff RBC M/uL 3.9 5.1 4.10 FINAL Skyler David [facility] [place], [address] [place] [id number] 0 Phone: () - 02/22 CBC w/ auto diff HCT % 35.0 48.0 38.3 FINAL Skyler David [facility] [place], [address] [place] [phone] 0 Phone: () - 02/22 CBC w/ auto diff MCV fL 80.0 104.0 93.4 FINAL Skylerkristen [facility] [place], [address] [place] [phone] 0 Phone: () - 02/22 CBC w/ auto diff MCH pg 26.0 35.0 33.4 FINAL Skylerkristen [facility] [place], [address] [place] [phone] 0 Phone: () - 02/22 CBC w/ auto diff MCHC g/dL 30.0 35.0 35.8 High FINAL Skylerkristen [facility] [place], [address] [place] [phone] 0 Phone: () - 02/22 CBC w/ auto diff MPV fL 9.5 13.4 10.2 FINAL Skyler [facility] [place], [address] [place] [phone] 0 Phone: () - 02/22 CBC w/ auto diff RDW % 11.4 16.1 13.30 FINAL Skyler [facility] [place], [address] [place] [facility] [phone] 0 Phone: () - 08/15 [facility] other lab See coding team lead d Medications Date Name Route Dose Frequency Instructions Start Date End Date Status Fill Status Indication 2018 Thyroid (Pork) Oral PO 0.5 TABLE T(S) daily 2015 active Problems Diagnosis Status Date of Diagnosis Resolution Date Follicular non-Hodgkin's lymphoma (disorder) Active 11/02/2015 Follicular non-Hodgkin's lymphoma (disorder) Active Hemochromatosis (disorder) Active Cirrhosis of liver (disorder) Active Vital Signs Date Type Value 02/23/2024 Body Temperature 98.20 02/23/2024 Heart Beat 72.00 02/23/2024 Respiratory Rate 16.00 02/23/2024 Oxygen Saturation 95.00 02/23/2024 BSA 1.95 02/23/2024 Pain Scale 0.00 02/23/2024 Weight 178.80 02/23/2024 Height 68.00 02/23/2024 BMI 27.19 02/23/2024 Intravascular Systolic 118 02/23/2024 Intravascular Diastolic 80 Notes Section * Med Onc Follow-up Note Patient Name: ISAMAR WATERS Date Of : 1955 Today's Provider:?Skyler MABRY Date of Service:?02/23/2024 Attending Physician:?Skyler Hernandez (Medical Oncology) Referring Provider: ? HEMATOLOGY/ MEDICAL ONCOLOGY FOLLOW UP VISIT Reason for Visit * B cell follicular lymphoma:?? diagnosed in October 2015. * Currently on observation.?? Assessment * Extranodal follicular B-cell lymphoma stage IE* Diagnosed in October 2015 after??a biopsy from??right conjunctival region.?Bone marrow biopsy negat ilana. * Radiation was recommended but patient declined??after discussion with her eye surgeon.?Continuesto be on observation. * Patient returns for a planned follow-up,??patient denies any??concerning findings around her??eye.?She denies any pain discomfort swelling or cervical lymphadenopathy.?? 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 ?? * Laboratory and imaging studies show no evidence for iron overload.?? * Hepatic cirrhosis, attributed to hepatic steatosis and confirmed on biopsy. Elevated ferritin notedpreviously appear to be due to steatohepatitis.?? * Kidney stones recurrent urinary tract infections * Patient been following with urology??had multiple??procedures.?? Plan * Patient's clinical examination and review of systems??were??reassuring for??no concerning findings??of recurrence. * Will continue with observation. * We reviewed interval imaging she had a CT scan of abdomen pelvis done on 10/08/2023??which showed??cirrhotic appearance of liver??there were no concerning lymphadenopathy in the abdomen pelvis.?? She also had a CT scan of orbits??and neck in August 2023 which did not show any cervical lymphadenopathy??and there were normal orbits.?? * Plan follow-up in 6 to 8 months patient will call us in case of new symptoms * For history of H63D mutation we will continue to monitor her CBC,??and ferritin Advanced Care Planning Pain Scale on Today's Visit 0 Pain Plan on Today's Visit No pain plan indicated for today's visit Smoking Status Smoking Tobacco : Never smoker; Smokeless Tobacco : Never used smokeless tobacco; Vaping : Never vaped Depression Screening Tool Status Was screened; Outcome positive: No; Screening Date: 02/23/2024; Screening Tool: PRIME MD-PHQ2; Total depression score: 0 History of Present Illness * 1. Follicular B cell lymphoma with presentation and treatment as summarized below?? * - She reports being in her usual state of health until mid June 2015. At that time, she became aware of an abnormality involving her right eye. She saw multiple consultants over time and ultimately had a biopsy performed at the [facility]. * - The submitted material showed a B-cell lymphoma. The sample was felt to be small and there was noevidence of BCL-2 rearrangement on the specimen. The findings were felt most consistent however with follicular lymphoma grade 1 or 2. * - ??In the period after surgery, she had additional laboratory studies performed and also met with my colleague Dr. Andrea Gallego in our [place] office. A number of studies were performed. * - A PET CT scan showed increased uptake in the right periorbital region. In addition, there was lowlevel uptake in some right cervical and supraclavicular lymph nodes. There was no evidence of metabolically active disease elsewhere. * - Bone marrow biopsy showed no evidence of marrow involvement by lymphoma. Laboratory studies also showed slight elevation in LDH and also beta-2 microglobulin. * -A number of options were discussed and ultimately it was elected to have her begin a plan of observation. * 02/03/2023 patient remains on observation with no new concerning findings??she has never had any treatment. * 08/13/2023 CT scan of orbit and??neck did not show any concerning lymphadenopathy or signs of local recurrence Interval History { } Review of Systems Remaining 14 point comprehensive review of systems within normal limits. NCCN Distress Thermometer and Problem List were collected and documented in the patient chart.?? Remarkable symptoms and concerns were discussed with the patient.?? Any additional follow-up is indicated in the plan. Past Medical and Surgical History 1. Stage IE extranodal follicular B cell lymphoma as discussed above. 2. Chronic Lyme disease. 3. Nephrolithiasis. 4. Hypothyroidism. 5. History of possible kidney disease. 6. Hemochromatosis with genetic findings showing her to be heterozygous for the H63D mutation. Additional work up showed no evidence of iron overload. Echocardiogram and MRI liver showed no evidence of end organ injury. 7. Hepatic cirrhosis with preexisting findings of hepatic steatosis. Diagnosis confirmed on liver biopsy performed at the [facility]. 8. ??Nephrolithiasis ??? PAST SURGICAL HISTORY: 1. Previous right periorbital biopsy. 2. Cholecystectomy 3. Tonsillectomy 4. Cataract extraction. ??? IMMUNIZATION HISTORY: As indicated in her records. ??? GYNECOLOGIC HISTORY: She is postmenopausal. Current Medications Medication List Name Date Thyroid (Pork) Oral 11/26/2021 Allergies Dust mites, epinephrine, gluten and mold Family History She has 4 sons and 2 daughters as well as 10 grandchildren. She has an older sister and younger sister both of whom are well. Her mother is living. Her father is from central nervous system bleeding with additional details not available. Social History She is and lives locally with her family. She has worked primarily in her home. Vital Signs Blood pressure: 118/80, Pulse: 72, Temperature: 98.2 F, Respirations: 16, O2 sat: 95%, Pain Scale: 0, Height: 68 in, Weight: 178.8 lb, BSA: 1.95, BMI: 27.19 kg/m2 Covid-19 vaccine ([employer]) (11/26/2021), Patient declined/rejected; Flu vaccine - Adult (2018), Patient declined/rejected Performance Status ECOG or Karnofsky ECO Normal activity. Fully active, able to carry on all pre-disease performance without restriction. (Date: 03/23/2019) Karnofsky: 100% Normal, no complaints, no evidence of disease. (Date: 08/22/2019) Physical Exam Pleasant 68-year-old lady appears comfortable no acute distress ECOG performance score 1. HEENT examination there were no concerning findings??in patient's??eyes??no cervical lymphadenopathy.?Lungs clear to auscultation heart sounds normal Abdomen was without any??palpable organomegaly Genetics/Molecular/Biomarkers * Follicular non-Hodgkin's lymphoma (disorder) ( Stage Date: 03/21/2016, Stage IA; Stage Date: 11/02/2015, Stage Unknown Date of Dx:11/02/2015 CD20 Result: Positive; CD20 Result: Positive; CD30 Result: Unknown; CD30 Result: Unknown; First record:12/05/2015 Last record:03/23/2019 Other Migrated ICD10: C82.00 , C82.09 ) * Follicular non-Hodgkin's lymphoma (disorder) ( CD20 Result: Positive; CD20 Result: Positive; CD30 Result: Unknown; CD30 Result: Unknown; First record:11/02/2015 Last record:11/13/2015 Other Migrated ICD10: C82.00 , C82.09 ) * Hemochromatosis (disorder) ( Disease Status: Untreated; First record:06/10/2017 Last record:03/23/2019 Other Migrated ICD10: E83.110 ) Lab Results CBC LabResults 02/23/2024 08/06/2023 01/28/2023 11/13/2022 2 10/28/2021 CBC WBC x 10^3/uL 6.8 7.8 RBC x 10^6/uL 4.10 4.40 NRBC % /100 wbc 0.0 0.0 HGB g/dL 13.7 14.4 HCT % 38.3 41.4 MCV fL 93.4 94.1 MCH pg 33.4 32.7 MCHC g/dL 35.8 (H) 34.8 RDW % 13.30 13.60 PLT x 10^3/uL 141 174 MPV fL 10.2 9.8 Dillan % 46.4 47.5 LY % 38.0 37.9 MO % 10.8 10.8 EO % 3.4 2.3 BA % 1.3 1.2 IG % 0.1 0.3 Dillan # (ANC) x 10^3/uL 3.1 3.7 LY # x 10^3/uL 2.6 2.9 MO # x 10^3/uL 0.7 0.8 EO # x 10^3/uL 0.2 0.2 BA # x 10^3/uL 0.1 0.1 IG # x 10^3/uL 0.01 0.02 Chemistries LabResults 02/23/2024 08/06/2023 01/28/2023 11/13/2022 2 10/28/2021 Chemistries Glucose mg/dL 189 (H) BUN mg/dL 11.0 Creatinine mg/dL 0.70 Sodium mmol/L 142 Potassium mmol/L 4.0 Chloride mmol/L 107 CO2 mmol/L 24 Calcium mg/dL 9.4 Albumin g/dL 3.8 Total protein g/dL 7.6 Bilirubin, total mg/dL 2.0 (H) Alkaline phosphatase U/L 130 (H) AST/SGOT U/L 45 (H) ALT/SGPT U/L 21 LDH U/L 194 GFR estimate mL/min/1.73m2 93.6 Tumor Markers LabResults 02/23/2024 08/06/2023 01/28/2023 11/13/2022 2 10/28/2021 TumorMarkers ? LabResults 02/23/2024 08/06/2023 01/28/2023 11/13/2022 2 10/28/2021 [facility] Surveys/Consents/Other Discussions RAGHAVENDRA Rios CC: Paulo Tolentino MD FAX Coleman Merino MD Electronically signed by Skyler MABRY 02/25/2024 08:35 CDT
--- OUTSIDE RECORDS SUMMARY | 2025-06-06 15:20 | XMS_ITS | Encounter Summary ---
Author Organization [facility] Address [address] [place] [address] Care Team Providers Care Unloading Checker Name Role Phone No Ref-Primary, Physician Primary Care Provider Unavailable Fredy Liang MD Unavailable Unavailable NeJoaquina schilling MD Primary Care Provider [facility] Nik Mackey MD Unavailable [phone] Coleman Davalos MD Unavailable [phone] Kristin Merino MD Primary Care Provider [phone] Coleman Davalos MD Unavailable [phone] Abebe Hernandez MD Unavailable [phone] Chago Katz MD Unavailable [phone] Yasmeen Oleary PA-C Unavailable [phone] Yemi Deleon PA-C Unavailable [phone] Love Mcclelland PA-C Unavailable [phone] Naomi Montes [facility] Unavailable Encounter Details Date Type Department Care Team (Late st Contact Info) Description 10/31/2009 Clinic Report ([facility]) [address] [phone] Verna Waldron MD NO INFO AVAILABLE 09/24/2022 Social History Tobacco Use Types Packs/Day Years Used Date Smoking Tobacco: Never Assessed Comments Unknown Sex and Gender Information Value Date Recorded Sex Assigned at Not on file Legal Sex Female 3:26 AM ROUTER SETTER Gender Identity Not on file Sexual Orientation Not on file documented as of this encounter Progress Notes * Verna Waldron MD - 06/05/2012 4:24 AM CST CC/HPI: She presented with Lab/XRay Only. Current Medication: Doxycycline 100 mg Cap, 1 [...] every 5 days and discontinued because: Discontinued. Aspirin 81 mg Tab, 1 Tablet(s), PO, daily, start on November 23, 2008, end on March 18, 2010, discontinued because: Refilled and Not taking now. Ambien 10 mg Tab, 1/2 Tablet(s), PO, QHS, 30 days, 11 refills, for a total of 15, start on June 18, 2009, end on June 12, 2010 and by Savanna Rios. ROS: None PE: None Dx: (780.79) - C - Fatigue (244.9) - C - Hypothyroidism Rx: None Plan: None Patient Instructions: None documented in this encounter Plan of Treatment Upcoming Encounters Date Type Department Care Team (Late st Contact Info) Description 06/12/2025 1:20 PM ROUTER SETTER Ancillary Procedure [address] [place] [address] Chago Katz MD [address] [place] [id number] 06/13/2025 3:00 PM ROUTER SETTER Infusion Therapy Visit [address] [place] [address] Nate Beauchamp MD [address] [place], [place] [phone] 06/16/2025 11:15 AM ROUTER SETTER Virtual Visit [facility] [place] [address] [facility] [address] [place] [phone] Chago Katz MD [address] [place] [address] 07/11/2025 3:00 PM ROUTER SETTER Infusion Therapy Visit [address] [place] [address] Nate Beauchamp MD [address] [facility] [address] [place] [address] 08/14/2025 12:30 PM ROUTER SETTER Office Visit [facility] [address] [facility] [address] [place] [address] Coleman Davalos MD [address] [facility] [address] [place], [place] [phone] documented as of this encounter Visit Diagnoses Not on filedocumented in this encounter Care Teams Unloading Checker Relationship Specialty Start Date End Date No Ref-Primary, Physician PCP - General 02/01/14 03/20/14 Joaquina Odonnell MD PCP - General Family Practice 03/21/14 08/03/22 rKistin Merino MD [address] [facility] [address] [place] [address] PCP - General Internal Medicine 08/04/22 Fredy Liang MD Referring Physician Urology 02/02/14 Nik Mackey MD [facility] [address] [place], [place] [address] Referring Physician Ophthalmology 08/24/15 Coleman Davalos MD [address] [place] [id number] Ophthalmology 08/24/15 Coleman Davalos MD [address] [place] [id number] Assigned PCP 07/09/22 08/05/23 Abebe Hernandez MD [address] [place], [place] [phone] Urology 02/27/23 Chago Katz MD [address] [place], [place] [address] Assigned Surgical Provider 03/28/23 Yasmeen Oleary PA-C [address] [place], [place] [address] Assigned Neuroscience Provider 05/04/24 06/03/24 Yemi Deleon PA-C [address] [place], [place] [address] Assigned Neuroscience Provider 06/04/24 Love Mcclelland PA-C [address] [place] [address] Physician Frame Cleaner Physician Frame Cleaner - Medical 11/29/24 12/10/24 Naomi Montes [facility] [id number] [place] [phone] 11/29/24 12/10/24 documented as of this encounter
--- OUTSIDE RECORDS SUMMARY | 2025-06-06 15:20 | XMS_ITS | Clinical Summary ---
Author Organization [facility] Address [address] [place] [address] Care Team Providers Care Cooking Appliance Repair Technician Name Role Phone Savanna Rios Jamal Unavailable Fredy Liang MD Unavailable Unavai Kristin Macdonald MD Primary Care Provider [phone] Niya Griffiths RN Unavailable La Bee Unavailable Niya Griffiths RN Unavailable [phone] La Bee Unavailable [phone] Allergies Active Allergy Reactions Criticality Noted Date Comments Blood-Group Specific Substance Other - Describe In Comment Field 10/21/2024 Patient has Anti-M antibody. Blood products may be delayed. Draw patient 24 hours prior to transfusion. For [facility] testing, draw one red top and two purple top tubes for all Type and Screen orders. Dust Mites *Unknown - Follow up needed Unknown 02/11/2011 Epinephrine Anxiety Low 10/02/2011 Patient reports having panic attacks. Ethyl Alcohol Dyspnea,Other - Describe In Comment Field High 10/08/2015 Especially cleaning products but could be air fresheners also, Patient feels like she cannot breath. Gadolinium-Containing Contrast Media Myalgia,Other - Describe In Comment Field Medium 03/25/2024 Weakness, pain per [place] records. Gluten GI Upset Unknown 07/23/2010 Mold *Unknown Unknown 09/29/2024 Mold Extracts Itching Unknown 10/02/2011 Polyvinyl Alcohol Edema High 12/24/2015 Patient reports having swelling around eye, itching, discharge. Polyvinyl Chloride (Pvc) *Unknown Unknown 03/22/2024 Titanium Irritation At Patch Site Unknown 10/11/2018 Dental implant issues Medications acetaminophen 500 mg tablet Take 1,000 mg by mouth every 6 hours if needed for Headache or Pain. 5 Active thyroid (pork) ([place] Thyroid) 15 mg tablet Take 45 mg by mouth once daily. 5 Active FreeStyle Katelynn 3 Sensor for continuous blood glucose monitor (CGM) USE DIRECTED AND CHANGE SENSOR EVERY 14 DAYS. 4 Active medication order composer Colloidal Silver eye drops (OTC) as needed for eye irritation. Active oxyCODONE 5 mg immediate release tabletIndicatio ns:Pain Take one-half tablet (2.5 mg) by mouth every 4 hours if needed for Pain. 10 Tablet 10/23/2024 10:18 AM CDT 5 Active levETIRAcetam 500 mg tabletIndicatio ns:Subdural hematoma (HC) Take 1 Tablet (500 mg) by mouth two times daily. 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 On potassium citrate. Working on diet. 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 Gee gives steroids since approximately 2008. Osteopenia 01/10/2019 Encounters Date Type Department Care Team Description 05/18/2025 Nurse Triage [facility] [address] [place] [address] Kristin Merino MD Lump 04/18/2025 Patient Outreach Courage [facility] [address] [place] [address] La Bee Brain Injury Rehab Care Coordination - [facility] from Last 3 Months Immunizations Immunization Administration Dates Next Due DT (Age < 7 years) 11/29/2013 Family History Medical History Relation Name Comments No Known Problems Brother Kidney Stone Daughter Hearing loss Father Heart Disease Father pacemaker Kidney Stone Father Hearing loss Mother Osteoporosis Mother No Known Problems Sister Diabetes Son Relation Name Status Comments Brother Daughter Alive Father Mother Sister Son Alive Social History Tobacco Use Types Packs/Day Years Used Date Smoking Tobacco: Never Smokeless Tobacco: Never Tobacco Cessation:Counseling Given: Yes Alcohol Use Standard Drinks/Week Comments No 0 (1 standard drink = 0.6 oz pur e alcohol) PHQ-2 Answer Date Recorded PHQ-2 TOTAL SCORE 0 10/22/2020 Social Connections Answer Date Recorded Do you often feel lonely or isolated from those around you? 0 10/20/2024 Financial Resource Strain Answer Date R ecorded Difficulty of Paying Living Expenses 3 10/20/2024 Difficulty of Paying Living Expenses Not on file 10/20/2024 Food Insecurity Answer Date Recorded Do you worry your food will run out before you are able to buy more? 1 10/20/2024 Transportation Needs Answer Date Record ed Does lack of transportation keep you from medica l appointments? 1 10/20/2024 Does lack of transportation keep you from work, meetings or getting things that you need? 1 10/20/2024 Housing Stability Answer Date Recorded What is your housing situation today? 1 10/20/2024 Interpersonal Safety Answer Date Record ed Are you being hit, kicked, p ushed or yelled at (see row info)? No 10/20/2024 Interpersonal Safety Abuse 12 - 18 Not on file 10/20/2024 Interpersonal Safety Ambulatory Vulnerability No t on file 10/20/2024 Utilities Answer Date Recorded Do you have trouble paying f or utilities (for example, heat, electricity, water, phone)? 1 10/20/2024 Comments No Sex and Gender Information Value Date Recorded Sex Assigned at Not on file Legal Sex Female 6:37 AM DATA PROGRAMMER Gender Identity Not on file Sexual Orientation Not on file Obstetrics History Para Term AB IAB SAB Ectopic Multiple Livin g Live Births 6 6 6 0 0 0 0 0 0 6 Date Outcome GA Total Labor Labor/2nd/3rd Weight Sex Type Anes PTL Urvashi A1 A5 Name Clin Term Term Term Term Term Term Last Filed Vital Signs Vital Sign Reading Time Taken Comments Blood Pressure 119/57 10/23/2024 8:05 AM CDT Pulse 67 10/23/2024 8:05 AM CDT Temperature 36.9 C (98.4 F) 10/23/2024 8:05 AM CDT Respiratory Rate 18 10/23/2024 8:05 AM CDT Oxygen Saturation 92% 10/23/2024 1:04 PM CDT Inhaled Oxygen Concentration - - Weight 75.7 kg (166 lb 14.2 oz) 025 12:00 AM CDT Height 165.1 cm (5' 5) 10/20/2024 4:49 PM CDT Body Mass Index 27.77 10/20/2024 4:49 PM CDT Plan of Treatment Health Maintenance Due Date Last Done Comments Tetanus booster 1965 Pneumococcal series for age 50+ (1 of 2 - PCV) 1973 Zoster (shingles) series for age 50+ (1 of 2) 1973 Colonoscopy through age 75 1999 RSV vaccine for adults or (1 - Risk 50-74 years 1-dose series) 2004 Mammogram for age 45-75 07/18/2012 07/18/19 12, 02/28/2011 (Completed outside of [facility]) Medicare Wellness for age 65+ 10/23/2021 10/22/2020 Depression screening for age 12+ 10/24/2021 10/24/2020, 10/22/2020, 10/01/2020, Additional history exists BMI (ht and wt on same day) for age 18+ 04/24/2022 04/24/2021, 10/22/2020, 09/25/2020, Additional history exists Influenza Vaccine (#1) 2025 Lipids for age 45-75 09/11/2025 09/11/2020, 01/11/2019, 07/10/2011 Hepatitis C screening for age 18-79 Completed 09/09/2016 DEXA/DXA scan for age 65+ Completed 2023, 04/30/2022, 01/17/2019, Additional history exists Hepatitis B series for 19+ Aged Out N o longer eligible based on patient's age to complete this topic Medical Devices Implanted Type Area Director Of Employee Development Device Identifier Shelf Expiration Date Model / Serial / Lot Stent, Ultra 5fr 24cm [id number] - [id number] Implanted:Qty: 1 on 08/19/2013 by Fredy Liang MD at [facility] R-Wayin 06/18/2016 [id number] / / [id number] Stent Uret [id number] Percuflex Hydroplus - [id number] Implanted:Qty: 1 on 10/21/2024 by Gerardo Holland MD at [facility] Right: Ureter [facility] 05/31/2027 [id number] / / [id number] Procedures Procedure Name Priority Date/Time Associated Diagnosis Comments XR DXA BONE DENSITY 2 SITES AXIAL AND 1 SITE PERIPHERAL Routine 05/11/2024 3:46 PM CDT Osteoporosis LIPID PANEL W REFLEX MEASURED LDL Routine 09/11/2020 1:39 PM DATA PROGRAMMER Chest pain, unspecified type ANTI HCV Routine 09/09/2016 11:04 AM DATA PROGRAMMER Abdominal bloating Abdominal discomfort Elevated bilirubin XR MAMMO BILAT SCREEN FFDM (IA) Routine 07/18/2011 1:13 PM DATA PROGRAMMER Other screening mammogram from Last 3 Months or Most Recently Relevant to Health Maintenance Results * (ABNORMAL) XR DXA BONE DENSITY 2 SITES AXIAL AND 1 SITE PERIPHERAL (05/11/2024 3:46 PM CDT) Anatomical Region Laterality Modality LUMBAR SPINE Other Impressions 05/17/2024 2:05 PM DATA PROGRAMMER Osteoporosis. RECOMMENDATIONS: The National Osteoporosis Foundation recommends pharmacologic treatment for patients with T-scores of -2.5 or less, patients with prior history of fragility fractures, or patients with 10-year probability of greater than 3% at hips or greater than 20% of suffering major osteoporotic fractures. Recommend continued optimization of calcium and vitamin D intake through dietary means and/or supplementation and regular exercise. Consider pharmacologic therapy for osteoporosis. Follow-up bone density reading in 2 years if therapy initiated to assess therapeutic efficacy. Patient reports she is not taking any medications for osteoporosis currently. Sally Merlos PA-C [facility] 05/17/2024 Narrative 05/17/2024 2:05 PM DATA PROGRAMMER For Patients: Results are automatically released to your [facility] ([employer]) account once available, in compliance with federal regulations. This means that you may see your results before your provider has had a chance to review them. Please allow 2-3 business days for your provider to comment on the results. XR DXA Bone Mineral Density (BMD) EXAM LOCATION: [facility] [address] [facility] [id number] PATIENT NAME: Juana Garza DATE OF : 1955 EXAM DATE: 05/11/2024 REQUESTING PROVIDER: Nate Beauchamp DO GENDER AT : female HEIGHT: 5' 8 (03/22/2024) WEIGHT: 172 lb (03/22/2024) MENOPAUSAL STATUS: Postmenopausal RACE/ETHNICITY: White RISK FACTORS: Family History of Osteoporosis, History of Fragility Fracture (at a major site), Hyperparathyroidism, and White Race CURRENT MEDICATION FOR BONE LOSS: NONE INDICATION: Follow-up of existing osteoporosis COMPARISON DATE(S): 2021 DXA scans are compared to prior studies for a patient only when the two (or more) studies were performed on the same scanner. It is not possible to compare data generated on one scanner to data from another because there are not standards in DXA equipment. This applies even if the two scanners are made by the same bright cutter. PROCEDURE: Dual-energy x-ray absorptiometry performed with routine technique. Reporting is completed in the form of a T-score. The T-score represents the standard deviation from peak bone mass based on young healthy adult. A Z-score is used for diagnosis in premenopausal women, and for men under the age of 50. FINDINGS: RESULT LUMBAR SPINE L1 - L4 BMD: 0.711 g/cm2 T-Score: - 3.9 Z-Score: - 2.7 Change from prior in 2021: Decrease 6.8%. RESULTS FEMUR Left femoral neck BMD: 0.567 g/cm2 T-Score: - 3.4 Z-Score: - 2.0 Change from prior in 2021: Decrease 4.4%. Right femoral neck BMD: 0.595 g/cm2 T-Score: - 3.2 Z-Score: - 1.8 Change from prior in 2021: Decrease 6.3%. Left hip BMD: 0.555 g/cm2 T-Score: - 3.6 Z-Score: - 2.5 Change from prior in 2021: Decrease 8.6%. Right hip BMD: 0.560 g/cm2 T-Score: - 3.6 Z-Score: - 2.4 Change from prior in 2021: Decrease 8.9%. RESULT FOREARM Left Forearm distal radius BMD: 0.310 g/cm2 T-Score: - 6.0 Z-Score: - 4.3 Change from prior: None WHO criteria: Normal: T-score at or above -1 SD Osteopenia: T-score between -1.1 and -2.4 SD Osteoporosis: T-score at or below -2.5 SD Nate Beauchamp DO DEXA Final Result * LIPID PANEL W REFLEX MEASURED LDL (09/11/2020 1:39 PM DATA PROGRAMMER) [facility] CHOLESTEROL,TOTAL 186 100 - 199 mg/dL 09/12/2020 2:04 AM DATA PROGRAMMER [facility] TRIGLYCERIDES 119 <150 mg/dL 09/12/2020 2:04 AM DATA PROGRAMMER [facility] HDL CHOLESTEROL 55 >40 mg/dL 2:04 AM DATA PROGRAMMER [facility] NON-HDL CHOLESTEROL 131 <145 mg/dl 09/12/2020 2:04 AM DATA PROGRAMMER [facility] CHOL/HDL RATIO 3.38 <4.50 09/12/2020 2:04 AM DATA PROGRAMMER [facility] LDL CHOLESTEROL 107 <=130 mg/dL 09/12/2020 2:04 AM DATA PROGRAMMER [facility] PROVIDER ORDERED STATUS RANDOM 09/12/2020 2:04 AM DATA PROGRAMMER [facility] Blood BLOOD SPECIMEN / Unknown Venipuncture / Unknown 09/11/2020 1:39 PM DATA PROGRAMMER 09/11/2020 1:39 PM DATA PROGRAMMER Justa Linn MD CHEMISTRY Final Result [facility] [address] [place] [address], [place] * ANTI HCV (09/09/2016 11:04 AM DATA PROGRAMMER) HEPATITIS C ANTIBODY Non-Reacti ve Non-Reacti ve 09/10/2016 9:32 AM DATA PROGRAMMER [facility] Blood BLOOD SPECIMEN / Unknown Venipuncture / Unknown 09/09/2016 11:04 AM DATA PROGRAMMER 09/09/2016 11:04 AM DATA PROGRAMMER Narrative [facility] - 09/10/2016 9:32 AM DATA PROGRAMMER Antibodies to HCV not detected; does not exclude the possibility of exposure to HCV. us Kristin Vale MD SEND OUTS Final Result [facility] [address] [place] [address], [place] * XR MAMMO BILAT SCREEN FFDM (07/18/2011 1:13 PM DATA PROGRAMMER) Anatomical Region Laterality Modality BREASTS, Breast Left, Breast Right Bilateral Mammography Impressions 07/24/2011 12:24 PM DATA PROGRAMMER There is no radiographic evidence for malignancy. Recommend annual mammograms. A lay language report of this examination will be provided to the patient. MAMMOGRAM ASSESSMENT: ACR 2 Benign Narrative 07/24/2011 12:24 PM DATA PROGRAMMER XR MAMMO BILAT SCREEN FFDM [G0202.0] CLINICAL HISTORY: This is an asymptomatic 55 y.o. patient. INDICATION FOR EXAM: Mammogram Screening. TECHNIQUE: CC & MLO views were obtained. This digital study was evaluated with the assistance of Computer-Aided Detection. COMPARISON FILMS: Yes 05/30/10 [facility] FINDINGS: Mammographically, the breast tissue has scattered fibroglandular densities (approximately 25% - 50% glandular). No suspicious masses or microcalcifications. Intramammary lymph node within right breast. Procedure Note Coleman Chow DO - 07/24/2011 XR MAMMO BILAT SCREEN FFDM [G0202.0] CLINICAL HISTORY: This is an asymptomatic 55 y.o. patient. INDICATION FOR EXAM: Mammogram Screening. TECHNIQUE: CC & MLO views were obtained. This digital study was evaluatedwith the assistance of Computer-Aided Detection. COMPARISON FILMS: Yes 05/30/10 [facility] FINDINGS: Mammographically, the breast tissue has scatteredfibroglandular densities (approximately 25% - 50% glandular). Nosuspicious masses or microcalcifications. Intramammary lymph node withinright breast. IMPRESSION: There is no radiographic evidence for malignancy. Recommendannual mammograms. A lay language report of this examination will be provided to the patient. MAMMOGRAM ASSESSMENT: ACR 2 Benign Jeniffer galarza Result from Last 3 Months or Most Recently Relevant to Health Maintenance Insurance [facility] MEDICARE PART A HB ONLY [facility] [employer] INS Advance Directives Documents on File Type Date Recorded Patient Area Coordinator Expl anation POLST 10/12/2024 11:30 AM * Full Code (Latest Code Status on File) Date Activated Date Inactivated Comments 10/20/2024 5:03 PM 10/23/2024 4:20 PM Question Answer Comments Code Status Discussion: Reviewed Preferences * Full Code Date Activated Date Inactivated Comments 12/08/2020 1:26 AM 12/08/2020 4:50 PM Question Answer Comments Code Status Discussion: Not Discussed * Full Code Date Activated Date Inactivated Comments 08/19/2013 7:56 AM 08/19/2013 6:16 PM * Full Code Date Activated Date Inactivated Comments 10/02/2011 12:41 PM 10/02/2011 9:09 PM Care Teams Cooking Appliance Repair Technician Relationship Specialty [place] [address] [place] [address] PCP - General Internal Medicine 02/10/23 Savanna Rios Integrative Medicine Provider Internal Medicine 07/10/11 Fredy Liang MD Surgery - Urology 10/28/12 Niya Griffiths, RN [address] [place] [address] Brain Injury Rehab Care Coordination - [facility] Track Liner Operator 10/25/24 La Bee [address] [address] Brain Injury Rehab Care Coordination - [facility] Care Guide 10/25/24 Niya Griffiths, RN [address] [place], [place] [id number] Track Liner Operator Registered Nurse 10/25/24 La Bee [address] [facility] [address] [place] [address] 02/01/25 Cain Hanson Internal Medicine Allergy and Immunology 07/10/11
--- OUTSIDE RECORDS SUMMARY | 2025-06-06 15:20 | XMS_ITS | Encounter Summary ---
Author Organization [facility] Address [address] [place] [address] Care Team Providers Care Tea Tree Farm Worker Name Role Phone No Ref-Primary, Physician Primary Care Provider Unavailable Fredy Liang MD Unavailable Unavailable InJoaquina schilling MD Primary Care Provider [facility] Nik Mackey MD Unavailable [phone] Coleman Davalos MD Unavailable [phone] Kristin Merino MD Primary Care Provider [phone] Coleman Davalos MD Unavailable [phone] Abebe Hernandez MD Unavailable [phone] Chago Katz MD Unavailable [phone] Yasmeen Oleary PA-C Unavailable [phone] Yemi Deleon PA-C Unavailable [phone] Love Mcclelland PA-C Unavailable [phone] Naomi Montes [facility] Unavailable Encounter Details Date Type Department Care Team (Late st Contact Info) Description 05/18/2008 Clinic Report (Clinic Office Coordinator) [address] [phone] Verna Waldron MD NO INFO AVAILABLE 09/24/2022 Social History Tobacco Use Types Packs/Day Years Used Date Smoking Tobacco: Never Assessed Comments Unknown Sex and Gender Information Value Date Recorded Sex Assigned at Not on file Legal Sex Female 3:26 AM FOOTWEAR SALES REPRESENTATIVE Gender Identity Not on file Sexual Orientation Not on file documented as of this encounter Progress Notes * Verna Waldron MD - 06/05/2012 11:16 AM CST CC/HPI: She presented with Lab/XRay Only. see SO. Current Medication: Mepron 750 mg/5 mL Oral [...] on June 14, [address] Yates. [place] Thyroid 30 mg Tab, 1/2 to 2 [...] Changed meter. ROS: None PE: None Dx: (250.00) - C - Diabetes mellitus, type II controlled Rx: None Plan: None Patient Instructions: None WEAR SALES REPRESENTATIVE documented in this encounter Plan of Treatment Upcoming Encounters Date Type Department Care Team (Late st Contact Info) Description 06/12/2025 1:20 PM FOOTWEAR SALES REPRESENTATIVE Ancillary Procedure [facility] [address] [place] [phone] Chago Katz MD [address] [place], [place] [address] 06/13/2025 3:00 PM FOOTWEAR SALES REPRESENTATIVE Infusion Therapy Visit [address] [place] [phone] Nate Beauchamp MD [address] [place], [place] [address] 06/16/2025 11:15 AM FOOTWEAR SALES REPRESENTATIVE Virtual Visit [facility] Urology [facility] [address] [facility] [address] [place] [phone] Chago Katz MD [address] [place], [place] [address] 07/11/2025 3:00 PM FOOTWEAR SALES REPRESENTATIVE Infusion Therapy Visit [facility] [id number] [place] [address] [address] [place] [phone] Nate Beauchamp MD [address] [place], [place] [address] 08/14/2025 12:30 PM FOOTWEAR SALES REPRESENTATIVE Office Visit [facility] Eye [facility] [address] [facility] [address] [place] [phone] Coleman Davalos MD [address] [place] [address] documented as of this encounter Visit Diagnoses Not on filedocumented in this encounter Care Teams Tea Tree Farm Worker Relationship Specialty Start Date End Date No Ref-Primary, Physician PCP - General 02/01/14 03/20/14 Joaquina Odonnell MD PCP - General Family Practice 03/21/14 08/03/22 Kristin Merino MD [address] [place] [address] PCP - General Internal Medicine 08/04/22 Fredy Liang MD Referring Physician Urology 02/02/14 Nik Mackey MD [facility] [address] [place] [address] Referring Physician Ophthalmology 08/24/15 Coleman Davalos MD [address] [place] [address] Ophthalmology 08/24/15 Coleman Davalos MD [address] [place] [address] Assigned PCP 07/09/22 08/05/23 Abebe Hernandez MD [address] [place] [address] Urology 02/27/23 Chago Katz MD [address] [place] [address] Assigned Surgical Provider 03/28/23 Yasmeen Oleary PA-C [address] [facility] [place] [address] Assigned Neuroscience Provider 05/04/24 06/03/24 Yemi Deleon PA-C [address] [address] [place] [address] Assigned Neuroscience Provider 06/04/24 Love Mcclelland PA-C [address] [place] [address] Physician Journey Lineman Physician Journey Lineman - Medical 11/29/24 12/10/24 Naomi Montes [facility] [address] [place] [phone] 11/29/24 12/10/24 documented as of this encounter
--- OUTSIDE RECORDS SUMMARY | 2025-06-06 15:21 | XMS_ITS | Encounter Summary ---
Author Organization [facility] Address [address] [place] [address]. [place] [address] Care Team Providers Care Investment Officer Name Role Phone Fredy Liang MD Unavailable Unavailable Nik Mackey MD Unavailable [phone] Coleman Davalos MD Unavailable [phone] Kristin Merino MD Primary Care Provider [phone] Abebe Hernandez MD Unavailable [phone] Chago Katz MD Unavailable Yemi Deleon PA-C Unavailable + [phone] Love Mcclelland PA-C Unavailable [phone] Naomi Montes [facility] Unavailable Reason for Visit * Reason Onset Date Comments Appointment 11/02/2024 Encounter Details Date Type Department Care Team (Late st Contact Info) Description 11/02/2024 Telephone [facility] [address] [place] [address] Chago Katz MD [address] [address] Appointment Social History Tobacco Use Types Packs/Day Years [...] you got money to buy more? No 09/28/2024 Within the past 12 months, d id the food you bought just not last and you didn t have money to get more? No 09/28/2024 Housing Stability Answer Date Recorded Do you have housing? (Terry g is defined as stable permanent housing and does not include staying outside in a car, in a tent, in an abandoned building, in an overnight residential, or couch-surfing.) Yes 09/28/2024 Are you worried about losing your housing? No 09/28/2024 Financial Resource Strain Answer Date R ecorded Within the past 12 months, h ave you or your family members you live with been unable to get utilities (heat, electricity) when it was really needed? No 09/28/2024 Transportation Needs Answer Date Record ed Within the past 12 months, h as lack of transportation kept you from medical appointments, getting your medicines, non-medical meetings or appointments, work, or from getting things that you need? No 09/28/2024 Interpersonal Safety Answer Date Record ed Do you feel physically and e motionally safe where you currently live? Yes 09/20/2024 Within the past 12 months, h ave you been hit, slapped, kicked or otherwise physically hurt by someone? No 09/20/2024 Within the past 12 months, h ave you been humiliated or emotionally abused in other ways by your partner or ex-partner? 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 Katz wants to meet with her first. Called pt, she declined to make an appointment. She is not good at virtual visits and not ready to leave the house * Telephone Encounter - Reginaldo Maria - 11/02/2024 11:09 AM CDT [facility] Phone Message May a detailed message be left on voicemail: yes Reason for Call: Other: Patient called to schedule appointment for stent removal, laser, basketing,and possible stent replacement. Please call back patient to schedule. Action Taken: Message routed to: Other: [facility] Travel Screening: Not Applicable documented in this encounter Plan of Treatment Upcoming Encounters Date Type Department Care Team (Late st Contact Info) Description 06/12/2025 1:20 PM REPEAT PHOTOCOMPOSING MACHINE OPERATOR Ancillary Procedure [facility] [address] [place] [phone] Chago Katz MD [address] [facility] 500 [place] [address] 06/13/2025 3:00 PM REPEAT PHOTOCOMPOSING MACHINE OPERATOR Infusion Therapy Visit [facility] [address] [place] [address] [address] [place] [phone] Nate Beauchamp MD [address] [facility] [address] [place], [place] [address] 06/16/2025 11:15 AM REPEAT PHOTOCOMPOSING MACHINE OPERATOR Virtual Visit [facility] [place] [address] [place] [phone] Chago Katz MD [address] [place], [place] [address] 07/11/2025 3:00 PM REPEAT PHOTOCOMPOSING MACHINE OPERATOR Infusion Therapy [facility] [address] [place] [phone] Nate Beauchamp MD [address] [facility] [address] [place], [place] [address] 08/14/2025 12:30 PM REPEAT PHOTOCOMPOSING MACHINE OPERATOR Office [facility] [place] [address] [facility] [address] [place] [phone] Coleman Davalos MD 420 [facility] 493 [place] [address] documented as of this encounter Visit Diagnoses Not on filedocumented in this encounter Care Teams Investment Officer Relationship Specialty Start Date End Date Kristin Merino MD 420 [facility] 493 [place], [place] [address] PCP - General Internal Medicine 08/04/22 Fredy Liang MD Referring Physician Urology 02/02/14 Nik Mackey MD [facility] [address] [place], [place] [address] Referring Physician Ophthalmology 08/24/15 Coleman Davalos MD 420 [facility] 493 [place] [address] Ophthalmology 08/24/15 Abebe Hernandez MD [address] [place] [address] Urology 02/27/23 Chago Katz MD [address] [place] [address] Assigned Surgical Provider 03/28/23 Yemi Deleon PA-C [address] [place] [address] Assigned Neuroscience Provider 06/04/24 Love Mcclelland PA-C [address]00 [place] [address] Physician Senior Agricultural Assistant Physician Senior Agricultural Assistant - Medical 11/29/24 12/10/24 Naomi Montes [facility] [address] [place] [phone] 11/29/24 12/10/24 documented as of this encounter
--- OUTSIDE RECORDS SUMMARY | 2025-06-06 15:21 | XMS_ITS | Clinical Summary ---
Author Organization [facility] Address [address] [place] [address] Phone Care Team Providers Care Manager Of Quality Name Role Phone Kristin Merino MD Primary Care Provider [phone] Allergies Active Allergy Reactions Criticality Noted Date Comments Epinephrine Anxiety,Other (see comments) Low 10/02/2011 PANIC ATTACK Gadolinium muscle pain Medium 03/25/2024 Weakness, pain Polyvinyl Alcohol Swelling Low 03/01/2024 Swelling around eye Medications THYROID PO Take 45 mg by mouth 1 (one) time each day Active Encounters Date Type Department Care Team Description 03/17/2025 [employer] [address] [place], [place] [address] Gem Duncan RN from Last 3 Months Immunizations Immunization Administration Dates Next Due DT 11/29/2013 Family History Medical History Relation Comments Kidney stone Daughter Hearing loss Father Kidney stone Father Hearing loss Mother Diabetes Son Relation Status Comments Daughter Father Mother Son Social History Tobacco Use Types Packs/Day Years Used Date Smoking Tobacco: Never Passive Smoke Exposure: Never Smokeless Tobacco: Never Tobacco Cessation:Counseling Given: No Alcohol Use Standard Drinks/Week Comments Never 0 (1 standard drink = 0.6 oz pur e alcohol) Comments No Sex and Gender Information Value Date Recorded Sex Assigned at Not on file Legal Sex Female 10:04 AM [facility] Gender Identity Not on file Sexual Orientation Not on file Last Filed Vital Signs Vital Sign Reading Time Taken Comments Blood Pressure 138/85 08/04/2024 3:33 PM SNOW SHOVELER Pulse 56 08/04/2024 3:33 PM SNOW SHOVELER Temperature 36.6 C (97.9 F) 08/04/2024 3:33 PM SNOW SHOVELER Respiratory Rate - - Oxygen Saturation 96% 08/04/2024 3:33 PM SNOW SHOVELER Inhaled Oxygen Concentration - - Weight 79.2 kg (174 lb 9.6 oz) 08/04/2024 3:33 P M SNOW SHOVELER Height 172.7 cm (5' 8) 08/04/2024 3:33 PM SNOW SHOVELER Body Mass Index 26.55 08/04/2024 3:33 PM SNOW SHOVELER Plan of Treatment Health Maintenance Due Date Last Done Comments Diabetic Foot Exam 1964 Pneumococcal PPSV23/PCV13 65 + Years / High and Highest Risk (1 of 5 - PCV) 1973 Ophthalmology Exam 12/27/2016 12/28/2015 Influenza Vaccine (#1) 2025 Insurance PM [employer] INSURANCE Care Teams Manager Of Quality Relationship Specialty Start Date End Date Kristin Merino MD [address] [place] [address] PCP - General 07/29/23
--- OUTSIDE RECORDS SUMMARY | 2025-06-06 15:21 | XMS_ITS | Encounter Summary ---
Author Organization [place] Address [address] [place] [address] Care Team Providers Care Job Molder Name Role Phone No Ref-Primary, Physician Primary Care Provider Unavailable Fredy Liang MD Unavailable Unavailable LaJoaquina schilling MD Primary Care Provider [facility] Nik Mackey MD Unavailable [phone] Coleman Davalos MD Unavailable [phone] Kristin Merino MD Primary Care Provider [phone] Coleman Davalos MD Unavailable [phone] Abebe Hernandez MD Unavailable [phone] Chago Katz MD Unavailable [phone] Yasmeen Oleary PA-C Unavailable [phone] Yemi Deleon PA-C Unavailable [phone] Love Mcclelland PA-C Unavailable [phone] Naomi Montes [facility] Unavailable Encounter Details Date Type Department Care Team (Late st Contact Info) Description 11/23/2008 Clinic Report (Automatic Punch Press Operator) [address] [phone] Verna Waldron MD NO INFO AVAILABLE 09/24/2022 Social History Tobacco Use Types Packs/Day Years Used Date Smoking Tobacco: Never Assessed Comments Unknown Sex and Gender Information Value Date Recorded Sex Assigned at Not on file Legal Sex Female 3:26 AM FAN BALANCER Gender Identity Not on file Sexual Orientation Not on file documented as of this encounter Progress Notes * Verna Waldron MD - 06/05/2012 8:47 AM CST CC/HPI: She next presented with Lab/XRay Only. Current Medication: Cobden Thyroid 30 mg Tab, 2 Tablet(s), PO, daily, 30 days, 11 refills, for a total of 60, start on June 15, 2008, end on February 11, 2009, Dr. Yates titrating up to 2 pills and discontinued because: Refilled. Ambien 10 mg Tab, 1 Tablet(s), PO, QHS, 30 days, 11 refills, for a total of 30, start on August 14, 2008, end on June 17, 2009, by Savanna Rios and discontinued because: Refilled. Trazodone 50 mg [...] 2009, discontinued because: Discontinued and Changed meter. Aspirin 81 mg Tab, 1 Tablet(s), PO, daily, start on November 23, 2008, end on March 18, 2010, discontinued because: Refilled and Not taking now. ROS: None PE: None Dx: 733.00 Osteoporosis, unspec. V82.81 Screening, osteoporosis Rx: None Plan: None Patient Instructions: None * Verna Waldron MD - 06/05/2012 8:47 AM CST CC/HPI: She next presented with Lab/XRay Only. Current Medication: Ambien 10 mg Tab, 1 Tablet(s), PO, QHS, 30 days, 11 refills, for a total of 30, start on August 14, 2008, end on June 17, 2009, by Savanna Rios and discontinued because: Refilled. Trazodone 50 mg [...] 2009, discontinued because: Discontinued and Changed meter. Aspirin 81 mg Tab, 1 Tablet(s), PO, daily, start on November 23, 2008, end on March 18, 2010, discontinued because: Refilled and Not taking now. Cobden Thyroid 30 mg Tab, 2 Tablet(s), PO, daily, 30 days, 11 refills, for a total of 60, start on June 15, 2008, end on February 11, 2009, Dr. Yates titrating up to 2 pills and discontinued because: Refilled. 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 Rx: None Plan: None Patient Instructions: None documented in this encounter Plan of Treatment Upcoming Encounters Date Type Department Care Team (Late st Contact Info) Description 06/12/2025 1:20 PM FAN BALANCER Ancillary Procedure [facility] [address] [facility] [address] [place] [phone] Chago Katz MD [address] [facility] 500 [place], [place] [address] 06/13/2025 3:00 PM FAN BALANCER Infusion Therapy Visit [facility] [id number] [place] [address] [address] [place] [phone] Nate Beauchamp MD [address] [facility] [address] [place], [place] [address] 06/16/2025 11:15 AM FAN BALANCER Virtual Visit [facility] [place] [address] [facility] [address] [place] [phone] Chago Katz MD [address] [place] [address] 07/11/2025 3:00 PM FAN BALANCER Infusion Therapy Visit [facility] [address] [place] [address] [place] [phone] Nate Beauchamp MD [address] [place], [place] [address] 08/14/2025 12:30 PM FAN BALANCER Office Visit [facility] Eye [facility] [address] [facility] [address] [place] [phone] Coleman Davalos MD 420 [facility] 493 [place], [place] [address] documented as of this encounter Visit Diagnoses Not on filedocumented in this encounter Care Teams Job Molder Relationship Specialty Start Date End Date No Ref-Primary, Physician PCP - General 02/01/14 03/20/14 Joaquina Odonnell MD PCP - General Family Practice 03/21/14 08/03/22 Kristin Merino MD 420 [facility] 493 [place] [address] PCP - General Internal Medicine 08/04/22 Fredy Liang MD Referring Physician Urology 02/02/14 Nik Mackey MD [facility] [address] [place] [address] Referring Physician Ophthalmology 08/24/15 Coleman Davalos MD 420 [facility] 493 [place] [address] MD Ophthalmology 08/24/15 Coleman Davalos MD 420 [facility] 493 [place] [address] Assigned PCP 07/09/22 08/05/23 Abebe Hernandez MD [address] [place], [place] [address] Urology 02/27/23 Chago Katz MD [address] [place], [place] [address] Assigned Surgical Provider 03/28/23 Yasmeen Oleary PA-C [address] [place], [place] [address] Assigned Neuroscience Provider 05/04/24 06/03/24 Yemi Deleon PA-C [address] [place], [place] [address] Assigned Neuroscience Provider 06/04/24 Love Mcclelland PA-C 1700 [place] [address] Physician Hydraulic Lift Driver Physician Hydraulic Lift Driver - Medical 11/29/24 12/10/24 Naomi Montes [facility] [address] [place] [phone] 11/29/24 12/10/24 documented as of this encounter
--- OUTSIDE RECORDS SUMMARY | 2025-06-06 15:21 | XMS_ITS | Encounter Summary ---
Author Organization [facility] Address [address] [place] [address] Care Team Providers Care Radiology Rn Name Role Phone Fredy Liang MD Unavailable Unavailable Nik Mackey MD Unavailable [phone] Coleman Davalos MD Unavailable [phone] Kristin Merino MD Primary Care Provider [phone] Abebe Hernandez MD Unavailable [phone] Chago Katz MD Unavailable [phone] Yemi Deleon PA-C Unavailable [phone] Love McclellandC Unavailable [phone] Naomi Montes [facility] Unavailable Encounter Details Date Type Department Care Team (Late st Contact Info) Description 09/26/2024 [facility] Medical Advice [facility] [address] [place] [address] Neelam Romero Social History Tobacco Use Types Packs/Day Years [...] in an abandoned building, in an overnight intermediate, or couch-surfing.) Yes 09/28/2024 Are you worried [...] on file Legal Sex Female 3:26 AM SALES ORDER ADMINISTRATOR Gender Identity Not on file Sexual Orientation Not on file documented as of this encounter Plan of Treatment Upcoming Encounters Date Type Department Care Team (Late st Contact Info) Description 06/12/2025 1:20 PM SALES ORDER ADMINISTRATOR Ancillary Procedure [facility] [address] [place] [address] Chago Katz MD [address] [place] [address] 06/13/2025 3:00 PM SALES ORDER ADMINISTRATOR Infusion Therapy Visit [facility] [address] [place] [place] [phone] Nate Beauchamp MD [address] [place], [place] [address] 06/16/2025 11:15 AM SALES ORDER ADMINISTRATOR Virtual Visit [facility] [place] [address] [facility] [address] [place] [phone] Chago Katz MD [address] [place], [place] [address] 07/11/2025 3:00 PM SALES ORDER ADMINISTRATOR Infusion Therapy Visit [facility] [address] [place] [phone] aNte Beauchamp MD [address] [place] [address] 08/14/2025 12:30 PM SALES ORDER ADMINISTRATOR Office Visit [facility] [place] 8[address] [facility] [address] [place] [address] Coleman Davalos MD 420 [facility] 493 [place], [place] [address] documented as of this encounter Visit Diagnoses Not on filedocumented in this encounter Care Teams Radiology Rn Relationship Specialty Start Date End Date Kristin Merino MD [address] [address] PCP - General Internal Medicine 08/04/22 Fredy Liang MD Referring Physician Urology 02/02/14 Nik Mackey MD [facility] [address] [place] [address] Referring Physician Ophthalmology 08/24/15 Coleman Davalos MD 420 [facility] 493 [place] [address] Ophthalmology 08/24/15 Abebe Hernandez MD [address] [place] [address] Urology 02/27/23 Chago Katz MD [address] [place] [address] Assigned Surgical Provider 03/28/23 Yemi Deleon PA-C [address] [place] [address] Assigned Neuroscience Provider 06/04/24 Love Mcclelland PA-C 1700 [place] [address] Physician Rehabilitation Counselor Physician Rehabilitation Counselor - Medical 11/29/24 12/10/24 Naomi Montes [facility] [id number] [phone] 11/29/24 12/10/24 documented as of this encounter
--- OUTSIDE RECORDS SUMMARY | 2025-06-06 15:21 | XMS_ITS | Encounter Summary ---
Author Organization [place] Address [address] [place] [address] Care Team Providers Care Molder Foam Rubber Name Role Phone No Ref-Primary, Physician Primary Care Provider Unavailable Fredy Liang MD Unavailable Unavailable CaJoaquina schilling MD Primary Care Provider [facility] Nik Mackey MD Unavailable [phone] Coleman Davalos MD Unavailable [phone] Kristin Merino MD Primary Care Provider [phone] Coleman Davalos MD Unavailable [phone] Abebe Hernandez MD Unavailable [phone] Chago Katz MD Unavailable [phone] Yasmeen Oleary PA-C Unavailable [phone] Yemi Deleon PA-C Unavailable [phone] Love Mcclelland PA-C Unavailable [phone] Naomi Montes [facility] Unavailable Encounter Details Date Type Department Care Team (Late st Contact Info) Description 02/12/2009 Clinic Report (Hemodialysis Patient Care Specialist) [address] [phone] Verna Waldron MD NO INFO AVAILABLE 09/24/2022 Social History Tobacco Use Types Packs/Day Years Used Date Smoking Tobacco: Never Assessed Comments Unknown Sex and Gender Information Value Date Recorded Sex Assigned at Not on file Legal Sex Female 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 Pap smear history is significant for last normal performed on 08-12-07, thin prep and normal results. Gynecological complaints include none. Menstrual history includes menopause at age 49 and amenorrhea. Lifestyle is remarkable for no history of physical abuse, no history of sexual abuse, no history of verbal abuse, regular seatbelt use, satisfactory work experience, abnormal sleep patterns and normal amount of stress. Current contraception practice includes menopause. Health maintenance issues include normal weight. Obstetrical history reveals 7 total pregnancies, 6 full term, 0 , 0 ectopic, 0 therapeutic , 1 spontaneous , 6 living children and 0 stillborn. Cardiovascular risk factors include family history of cardiovascular disease and diabetes mellitus. Patient received health guidance in self-breast exam, tobacco, drugs and alcohol avoidance none and colonoscopy/sigmoidoscopy declines. The patient is sexually active and is monogamous. The patient received tetanus-diphtheria booster 2004. Current Medication: Trazodone 50 mg Tab, 1 Tablet(s), PO, QHS, 30 days, 10 refills, for a total of 30, start on June 15, 2008, end on April 30, 2009 and discontinued because: Refilled. Aspirin 81 mg Tab, 1 Tablet(s), PO, daily, start on November 23, 2008, end on March 18, 2010, discontinued because: Refilled and Not taking now. Ambien 10 mg Tab, 1 Tablet(s), PO, QHS, 30 days, 11 refills, for a total of 30, start on August 14, 2008, end on June 17, 2009, by Savanna Rios and discontinued because: Refilled. ROS: Constitutional: The patient complained of fatigue and insomnia but denied fever and recent illness. Eyes: The patient denied eye pain, vision change and visual disturbance. Ears/Nose/Throat/Neck: The patient complained of dizziness but denied nasal discharge, otalgia, sinus congestion and sore throat. Cardiovascular: The patient denied chest pain/pressure, edema, exercise intolerance and palpitations. Respiratory: The patient denied cough, dyspnea/shortness of breath, productive sputum and wheezing. Gastrointestinal: The patient denied abdominal pain, constipation, diarrhea and gastroesophageal reflux. Genitourinary/Nephrology: The patient denied dysuria, flank pain and urinary incontinence. Musculoskeletal: The patient complained of arthralgia(s), joint complaint (knees, fingers, hands), muscle weakness, myalgias and neck pain. Dermatologic: The patient denied itching and rash. Neurologic: The patient denied dizziness, headache, mental status change and vision change. Psychiatric: The patient complained of anxiety and insomnia but denied mood swings. Hematologic/Lymphatic: The patient complained of abnormal bleeding and bruising but denied abnormal ecchymoses. Vital Signs: data collected on 02/12/2009 01:27:58 PM by Catie Richards weight is 146 pounds clothed height is 6 feet body mass index is 22.52 Kg/m2 sitting heart rate is 60 bpm radial regular blood pressure at Right Arm while Sitting is 114/68 mmHg PE: Constitutional: GENERAL APPEARANCE: Overall: well nourished, well developed and in no acute distress. Eyes: CONJUNCTIVA/EYELIDS: Overall: conjunctiva clear, cornea clear and eyelids normal; PUPILS AND IRISES: Overall: pupils equal, round, reactive to light and accomodation. Ears/Nose/Throat: EXTERNAL EAR: Overall: normal appearance; EXTERNAL NOSE: Overall: benign appearance, no masses and non-tender; OTOSCOPIC EXAM: Overall: external auditory canals clear and tympanic membranes clear; LIPS/TEETH/GINGIVA: Overall: benign lips, normal dentition, benign [...] LIVER AND SPLEEN EXAM: Overall: no hepatosplenomegaly; RECTAL EXAM: Overall: good sphincter tone, no masses, no lesions; HERNIA EXAM: Overall: no hernias present. Genitourinary: UTERUS: Overall: normal size, normal contour, normal shape, normal mobility, nontender and no mass; CERVIX: Overall: no cervical motion tenderness, no discharge and no lesions; LABIA AND VAGINA: Overall: normal hair distribution, no discharge and no lesions; ADNEXA/PARAMETRIA: Overall: no tenderness, no enlargement, no mass lesions and normal size; URETHRA: Overall: no masses. Lymphatic: NECK NODES: Overall: anterior cervical chain benign and posterior cervical chain benign; OTHER NODES: Overall: supraclavicular chain benign; AXILLA/ARM NODES: Overall: axillary non-tender, not enlarged. Musculoskeletal: HEAD AND NECK: Overall: head atraumatic [...] APPEARANCE: Overall: well-groomed, good eye contact. Dx: (V70.0) - C - ROUTINE MEDICAL EXAM (V72.31) - C - Screening, pap (244.9) - C - Hypothyroidism (250.00) - C - Diabetes mellitus, type II controlled Rx: [place] Thyroid 30 mg Tab, 1 1/2 Tablet(s), PO, daily, 30 days, 11 refills, for a total of 30, start on February 12, 2009, end on February 06, 2010, Dr. Yates titrating up, discontinued because: Deleted. Clonazepam 0.5 mg Tab, 1/2 Tablet(s), PO, QHS, 30 days, 11 refills, for a total of 15, start on February 12, 2009, end on February 06, 2010, Milan Stewart. Plan: A return visit is indicated in 1year. Patient Instructions: None documented in this encounter Plan of Treatment Upcoming Encounters Date Type Department Care Team (Late st Contact Info) Description 06/12/2025 1:20 PM WOOD PROCESSING WORKER Ancillary Procedure [facility] [address] [facility] [address] [place] [phone] Chago Katz MD [address] [place], [place] [address] 06/13/2025 3:00 PM WOOD PROCESSING WORKER Infusion Therapy Visit [address] [place] [phone] Nate Beauchamp MD [address] [facility] [address] [place], [place] [address] 06/16/2025 11:15 AM WOOD PROCESSING WORKER Virtual Visit [facility] Urology [facility] [address] [facility] [address] [place] [phone] Chago Katz MD [address] [place], [place] [address] 07/11/2025 3:00 PM WOOD PROCESSING WORKER Infusion Therapy Visit [address] [place] [phone] Nate Beauchamp MD [address] [place] [address] 08/14/2025 12:30 PM WOOD PROCESSING WORKER Office Visit [facility] Eye [facility] [address] [facility] 9 Fl Clin [address] [place] [address] Coleman Davalos MD [address] [id number] documented as of this encounter Visit Diagnoses Not on filedocumented in this encounter Care Teams Molder Foam Rubber Relationship Specialty Start Date End Date No Ref-Primary, Physician PCP - General 02/01/14 03/20/14 Joaquina Odonnell MD PCP - General Family Practice 03/21/14 08/03/22 Kristin Merino MD [address] [place] [address] PCP - General Internal Medicine 08/04/22 Fredy Liang MD Referring Physician Urology 02/02/14 Nik Mackey MD [facility] [address] [place], [place] [address] Referring Physician Ophthalmology 08/24/15 Coleman Davalos MD [address] [place] [address] Ophthalmology 08/24/15 Coleman Davalos MD [address] [place] [address]8415 Assigned PCP 07/09/22 08/05/23 Abebe Hernandez MD [address] [place] [address] Urology 02/27/23 Chago Katz MD [address] [place] [address] Assigned Surgical Provider 03/28/23 Yasmeen Oleary PA-C [address] [facility] [place], [place] [address] Assigned Neuroscience Provider 05/04/24 06/03/24 Yemi Deleon PA-C [address] [place] [address] Assigned Neuroscience Provider 06/04/24 Love Mcclelland PA-C [address]00 [place] [address] Physician Podiatry Professor Physician Podiatry Professor - Medical 11/29/24 12/10/24 Naomi Montes [facility] [id number] [place] [phone] 11/29/24 12/10/24 documented as of this encounter
--- OUTSIDE RECORDS SUMMARY | 2025-06-06 15:21 | XMS_ITS | Encounter Summary ---
Author Organization [place] Address [address] [place] [address] Care Team Providers Care Silver Miner Blasting Name Role Phone No Ref-Primary, Physician Primary Care Provider Unavailable Fredy Liang MD Unavailable Unavailable MaJoaquina schilling MD Primary Care Provider [facility] Nik Mackey MD Unavailable [phone] Coleman Davalos MD Unavailable [phone] Kristin Merino MD Primary Care Provider [phone] Coleman Davalos MD Unavailable [phone] Abebe Hernandez MD Unavailable [phone] Chago Katz MD Unavailable [phone] Yasmeen Oleary PA-C Unavailable [phone] Yemi Deleon PA-C Unavailable [phone] Love Mcclelland PA-C Unavailable [phone] Naomi Montes [facility] Unavailable Encounter Details Date Type Department Care Team (Late st Contact Info) Description 02/15/2009 Clinic Report (Rotary Dryer Operator) [address] [phone] Verna Waldron MD NO INFO AVAILABLE 09/24/2022 Social History Tobacco Use Types Packs/Day Years Used Date Smoking Tobacco: Never Assessed Comments Unknown Sex and Gender Information Value Date Recorded Sex Assigned at Not on file Legal Sex Female 3:26 AM SUPERVISOR MOLD CONSTRUCTION Gender Identity Not on file Sexual Orientation Not on file documented as of this encounter Progress Notes * Verna Waldron MD - 06/05/2012 7:42 AM CST CC/HPI: She presented with Lab/XRay Only. Current Medication: Ambien [...] April 30, 2009 and discontinued because: Refilled. Clonazepam 0.5 mg Tab, 1/2 Tablet(s), PO, QHS, 30 days, 11 refills, for a total of 15, start on February 12, 2009, end on April 11, 2009, Milan Stewart and discontinued because: Discontinued. Aspirin 81 mg Tab, 1 Tablet(s), PO, daily, start on November 23, 2008, end on March 18, 2010, discontinued because: Refilled and Not taking now. ROS: None PE: None Dx: (244.9) - C - Hypothyroidism (272.4) - C - Hyperlipidemia (250.00) - C - Diabetes mellitus, type II controlled (V70.0) - C - ROUTINE MEDICAL EXAM Rx: None Plan: None Patient Instructions: None documented in this encounter Plan of Treatment Upcoming Encounters Date Type Department Care Team (Late st Contact Info) Description 06/12/2025 1:20 PM SUPERVISOR MOLD CONSTRUCTION Ancillary Procedure [facility] [address] [facility] [address] [place] [address] Chago Katz MD [address] [facility] 500 [place] [address] 06/13/2025 3:00 PM SUPERVISOR MOLD CONSTRUCTION Infusion Therapy Visit [facility] [address] [place] [address] Nate Beauchamp MD [address] [place] [address] 06/16/2025 11:15 AM SUPERVISOR MOLD CONSTRUCTION Virtual Visit [facility] Urology [facility] [place] [address] [place] [phone] Chago Katz MD [address] [facility] 500 [place] [address] 07/11/2025 3:00 PM SUPERVISOR MOLD CONSTRUCTION Infusion Therapy Visit [facility] [address] [place] [address] [address] [place] [phone] Nate Beauchamp MD [address] [facility] [address] [place] [address] 08/14/2025 12:30 PM SUPERVISOR MOLD CONSTRUCTION Office Visit [facility] Eye [facility] [address] [facility] [address] [place] [address] Coleman Davalos MD [address] [address] documented as of this encounter Visit Diagnoses Not on filedocumented in this encounter Care Teams Silver Miner Blasting Relationship Specialty Start Date End Date No Ref-Primary, Physician PCP - General 02/01/14 03/20/14 Joaquina Odonnell MD PCP - General Family Practice 03/21/14 08/03/22 Kristin Merino MD 420 [facility] 493 [place] [address] PCP - General Internal Medicine 08/04/22 Fredy Liang MD Referring Physician Urology 02/02/14 Nik Mackey MD [facility] [address] [place], [place] [address] Referring Physician Ophthalmology 08/24/15 Coleman Davalos MD 420 [facility] [address] [place], [place] [address] Ophthalmology 08/24/15 Coleman Davalos MD [address] [address] Assigned PCP 07/09/22 08/05/23 Abebe Hernandez MD [address] [place], [place] [address] Urology 02/27/23 Chago Katz MD [address] [place] [address] Assigned Surgical Provider 03/28/23 Yasmeen Oleary PA-C [address] [place], [place] [address] Assigned Neuroscience Provider 05/04/24 06/03/24 Yemi Deleon PA-C [address] [place], [place] [address] Assigned Neuroscience Provider 06/04/24 Love Mcclelland PA-C [address] [place] [address] Physician Screen Writer Physician Screen Writer - Medical 11/29/24 12/10/24 Naomi Montes [facility] [address] [place] [phone] 11/29/24 12/10/24 documented as of this encounter
--- OUTSIDE RECORDS SUMMARY | 2025-06-06 15:21 | XMS_ITS | Encounter Summary ---
Author Organization [place] Address [address] [place] [address] Care Team Providers Care Director Bioinformatics Name Role Phone No Ref-Primary, Physician Primary Care Provider Unavailable Fredy Liang MD Unavailable [facility]available [facility] Primary Care Provider [facility] Nik Mackey MD Unavailable [phone] Coleman Davalos MD Unavailable [phone] Kristin Merino MD Primary Care Provider Coleman Davalos MD Unavailable [phone] Abebe Hernandez MD Unavailable [phone] Chago Katz MD Unavailable [phone] Yasmeen Oleary PA-C Unavailable [phone] Yemi Deleon PA-C Unavailable Love Mcclelland PA-C Unavailable [phone] Naomi Montes [facility] Unavailable Encounter Details Date Type Department Care Team (Late st Contact Info) Description 03/26/2009 Clinic Report (Steel Buffer) [address] [phone] Checo Rowan MD XXX RETIRED APR 2022 XXX [place], [place] [address] Social History Tobacco Use Types Packs/Day Years Used Date Smoking Tobacco: Never Assessed Comments Unknown Sex and Gender Information Value Date Recorded Sex Assigned at Not on file Legal Sex Female 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 The symptom is described as acute. The symptom is sudden in onset. The symptom started 3 days ago. The complaint is moderate. The frequency of episodes is increasing. Current Medication: Ambien 10 mg Tab, 1 Tablet(s), PO, QHS, 30 days, 11 refills, for a total of 30, start on August 14, 2008, end on June 17, 2009, by Savanna Rios and discontinued because: Refilled. Cefuroxime Axetil Oral. Azithromycin Oral. Trazodone 50 mg Tab, 1 Tablet(s), PO, [...] because: Refilled and Not taking now. 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 Genitourinary/Nephrology: The patient denied dysuria, flank pain, urinary incontinence and urinary urgency. Vital Signs: data collected on 03/26/2009 02:26:29 PM by Lesli Gonzalez weight is 148 pounds 8.00 ounces clothed sitting heart rate is 60 bpm radial regular blood pressure at Left Arm while Sitting is 102/78 mmHg PE: Constitutional: GENERAL APPEARANCE: Overall: well nourished, well developed and in no acute distress. Abdomen: ABDOMINAL EXAM: Overall: no tenderness and normal bowel sounds. Genitourinary: RENAL: flank No CVA tenderness. Dx: 599.70 HEMATURIA UNSPECIFIED 088.82 BABESIOSIS (088.81) - C - Lyme disease Rx: None Plan: None Patient Instructions: None documented in this encounter Plan of Treatment Upcoming Encounters Date Type Department Care Team (Late st Contact Info) Description 06/12/2025 1:20 PM SAWDUST MACHINE OPERATOR Ancillary Procedure [facility] [address] [facility] [address] [place] [phone] Chago Katz MD [address] [place], [place] [address] 06/13/2025 3:00 PM SAWDUST MACHINE OPERATOR Infusion Therapy Visit [address] [place] [address] Nate Beauchamp MD [address] [place], [place] [address] 06/16/2025 11:15 AM SAWDUST MACHINE OPERATOR Virtual Visit [facility] Urology [facility] [address] [facility] [address] [place] [phone] Chago Katz MD [address] [place], [place] [address] 07/11/2025 3:00 PM SAWDUST MACHINE OPERATOR Infusion Therapy Visit [address] [place] [address] Nate Beauchamp MD [address] [place], [place] [address] 08/14/2025 12:30 PM SAWDUST MACHINE OPERATOR Office Visit [facility] Eye [facility] [address] [facility] 9 Fl Clin 9[address] [place] [address] Coleman Davalos MD [address] [address] documented as of this encounter Visit Diagnoses Not on filedocumented in this encounter Care Teams Director Bioinformatics Relationship Specialty Start Date End Date No Ref-Primary, Physician PCP - General 02/01/14 03/20/14 Joaquina Odonnell MD PCP - General Family Practice 03/21/14 08/03/22 Kristin Merino MD [address] [place] [address] PCP - General Internal Medicine 08/04/22 Fredy Liang MD Referring Physician Urology 02/02/14 Nik Mackey MD [facility] [address] [place] [address] Referring Physician Ophthalmology 08/24/15 Coleman Davalos MD [address] [place] [address] Ophthalmology 08/24/15 Coleman Davalos MD [address] [place] [address] Assigned PCP 07/09/22 08/05/23 Abebe Hernandez MD [address] [place] [address] Urology 02/27/23 Chago Katz MD [address] [place] [address] Assigned Surgical Provider 03/28/23 Yasmeen Oleary PA-C 6545 [facility] [place] [address] Assigned Neuroscience Provider 05/04/24 06/03/24 Yemi Deleon PA-C [address] [place] [address] Assigned Neuroscience Provider 06/04/24 Love Mcclelland PA-C [address] [place] [address] Physician Artist Representative Physician Artist Representative - Medical 11/29/24 12/10/24 Naomi Montes [facility] [address] [place] [phone] 11/29/24 12/10/24 documented as of this encounter
--- OUTSIDE RECORDS SUMMARY | 2025-06-06 15:21 | XMS_ITS | Encounter Summary ---
Author Organization [place] Address [address] [place] [address] Care Team Providers Care Photo Print Specialist Name Role Phone No Ref-Primary, Physician Primary Care Provider Unavailable Fredy Liang MD Unavailable [facility]available [facility] Primary Care Provider [facility] Nik Mackey MD Unavailable [phone] Coleman Davalos MD Unavailable [phone] Kristin Merino MD Primary Care Provider Coleman Davalos MD Unavailable [phone] Abebe Hernandez MD Unavailable [phone] Chago Katz MD Unavailable Yasmeen Oleary PA-C Unavailable Yemi Deleon PA-C Unavailable Love Mcclelland PA-C Unavailable [phone] Naomi Montes [facility] Unavailable Encounter Details Date Type Department Care Team (Late st Contact Info) Description 02/06/2009 Clinic Report (Site Operations Manager) [address] [phone] Erick Umanzor [place] [address] Social History Tobacco Use Types Packs/Day Years Used Date Smoking Tobacco: Never Assessed Comments Unknown Sex and Gender Information Value Date Recorded Sex Assigned at Not on file Legal Sex Female 3:26 AM MARKETING INFORMATION MANAGER Gender Identity Not on file Sexual Orientation Not on file documented as of this encounter Progress Notes * Erick Umanzor MD - 06/05/2012 7:49 AM CST CC/HPI: She presented with mole check. Rt. upper back area, developing a crust over it.. Current Medication: [place] Thyroid 30 mg Tab, 2 Tablet(s), PO, [...] Refilled and Not taking now. ROS: None Vital Signs: data collected on 02/06/2009 10:41:10 AM by Valorie Madrid weight is 144 pounds clothed sitting heart rate is 60 bpm radial regular blood pressure at Right Arm while Sitting is 102/60 mmHg PE: Integument: INSP & PALP-BACK: Location: on the left upper back Color: pink and schwartz Appearance: hyperkeratotic, with elevated border and superficial Shape: regular Number: one Length: 5-10mm Width: less than 5mm; Consistency: firm, nontender and mobile. Dx: (702.19) - C - Seborrheic keratosis, NOS Rx: None Plan: None Patient Instructions: None * Erick Umanzor MD - 06/05/2012 7:48 AM CST CC/HPI: She presented with Lab/XRay [...] discontinued because: Refilled and Not taking now. [place] Thyroid 30 mg Tab, 2 Tablet(s), PO, daily, 30 days, 11 refills, for a total of 60, start on June 15, 2008, end on February 11, 2009, Dr. Yates titrating up to 2 pills and discontinued because: Refilled. ROS: None PE: None Dx: 702.19 Seborrheic keratosis, NOS Rx: None Plan: None Patient Instructions: None documented in this encounter Plan of Treatment Upcoming Encounters Date Type Department Care Team (Late st Contact Info) Description 06/12/2025 1:20 PM MARKETING INFORMATION MANAGER Ancillary Procedure [facility] [address] [facility] [address] [place] [phone] Chago Katz MD 8558 [facility] 500 [place] [address] 06/13/2025 3:00 PM MARKETING INFORMATION MANAGER Infusion Therapy Visit [address] [place] [address] Nate Beauchamp MD [address] [facility] 162 [place] [address] 06/16/2025 11:15 AM MARKETING INFORMATION MANAGER Virtual Visit [facility] [place] [address] [facility] [address] [place] [address] Chago Katz MD 9020 [facility] 500 [place] [address] 07/11/2025 3:00 PM MARKETING INFORMATION MANAGER Infusion Therapy Visit [address] [place] [address] Nate Beauchamp MD 0826 [facility] 162 [place] [address] 08/14/2025 12:30 PM MARKETING INFORMATION MANAGER Office Visit [facility] Emergency Department [address] [facility] 9th Fl Clin 9A [place] [phone] Coleman Davalos MD 420 [facility] 493 [place] [address] documented as of this encounter Visit Diagnoses Not on filedocumented in this encounter Care Teams Photo Print Specialist Relationship Specialty Start Date End Date No Ref-Primary, Physician PCP - General 02/01/14 03/20/14 Joaquina Odonnell MD PCP - General Family Practice 03/21/14 08/03/22 Kristin Merino MD 420 [facility] 493 [place] [address] PCP - General Internal Medicine 08/04/22 Fredy Liang MD Referring Physician Urology 02/02/14 Nik Mackey MD [facility] [address] [place] [address] Referring Physician Ophthalmology 08/24/15 Coleman Davalos MD [address] [id number] MD Ophthalmology 08/24/15 Coleman Davalos MD [address] [place] [address] [id number] Assigned PCP 07/09/22 08/05/23 Abebe Hernandez MD [address] [place] [address] [place] [address] Urology 02/27/23 Chago Katz MD [address] [place] [place] 9527[address] Assigned Surgical Provider 03/28/23 Yasmeen Oleary PA-C [address] [place], [place] 3709[address] Assigned Neuroscience Provider 05/04/24 06/03/24 Yemi Deleon PA-C [address] [place] [place] [address]25 Assigned Neuroscience Provider 06/04/24 Love Mcclelland PA-C [address] [place] [address] Physician Stonemason Apprentice Physician Stonemason Apprentice - Medical 11/29/24 12/10/24 Naomi Montes [facility] [id number] [place] [phone] 11/29/24 12/10/24 documented as of this encounter
--- OUTSIDE RECORDS SUMMARY | 2025-06-06 15:21 | XMS_ITS | Encounter Summary ---
Author Organization [place] Address [address] [place] [address] Care Team Providers Care Database Analyst Name Role Phone No Ref-Primary, Physician Primary Care Provider Unavailable Fredy Liang MD Unavailable [facility] Primary Care Provider [facility] Nik Mackey MD Unavailable [phone] Coleman Davalos MD Unavailable [phone] Kristin Merino MD Primary Care Provider AnoopColeman handley MD Unavailable [phone] Abebe Hernandez MD Unavailable [phone] Chago Katz MD Unavailable Yasmeen Oleary PA-C Unavailable [phone] Yemi Deleon PA-C Unavailable Love Mcclelland PA-C Unavailable [phone] Naomi Montes [facility] Unavailable Encounter Details Date Type Department Care Team (Late st Contact Info) Description 03/27/2009 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 ROS: None PE: None Dx: 591 Hydronephrosis Rx: None Plan: None Patient Instructions: None documented in this encounter Plan of Treatment Upcoming Encounters Date Type Department Care Team (Late st Contact Info) Description 06/12/2025 1:20 PM AIRPORT DUTY MANAGER Ancillary Procedure [facility] [address] [facility] [address] [place] [address] Chago Katz MD [address] [facility] 500 [place] [address] 06/13/2025 3:00 PM AIRPORT DUTY MANAGER Infusion Therapy Visit [facility] [address] [place] [address] [place] [phone] Nate Beauchamp MD [address] [place] [address] 06/16/2025 11:15 AM AIRPORT DUTY MANAGER Virtual Visit [facility] [place] [address] [place] [phone] Chago Katz MD 3231 [facility] 500 [place], [place] [address] 07/11/2025 3:00 PM AIRPORT DUTY MANAGER Infusion Therapy Visit [facility] [address] [place] [address] [place] [phone] Nate Beauchamp MD [address] [facility] 162 [place], [place] [address] 08/14/2025 12:30 PM AIRPORT DUTY MANAGER Office Visit [facility] Eye [facility] 516 [facility] 9th Fl Clin 9A [place] [address] Coleman Davalos MD [address] [address] documented as of this encounter Visit Diagnoses Not on filedocumented in this encounter Care Teams Database Analyst Relationship Specialty Start Date End Date No Ref-Primary, Physician PCP - General 02/01/14 03/20/14 Joaquina Odonnell MD PCP - General Family Practice 03/21/14 08/03/22 Kristin Merino MD [address] [place] [address] [id number] PCP - General Internal Medicine 08/04/22 Fredy Liang MD Referring Physician Urology 02/02/14 Nik Mackey MD [facility] [address] [place] [place] [address] Referring Physician Ophthalmology 08/24/15 Coleman Davalos MD 420 [facility] 493 [place], [place] 7422[address] Ophthalmology 08/24/15 Coleman Davalos MD 420 [facility] 493 [place], [place] 9[address] Assigned PCP 07/09/22 08/05/23 Abebe Hernandez MD [address] [place] [address] [place], [place] [address] Urology 02/27/23 Chago Katz MD [address] [place] [address] [place], [place] 9[address] Assigned Surgical Provider 03/28/23 Yasmeen Oleary PA-C [address] [place], [place] [address] Assigned Neuroscience Provider 05/04/24 06/03/24 Yemi Deleon PA-C [address] [place] [address] [place], [place] [address] Assigned Neuroscience Provider 06/04/24 Love Mcclelland PA-C 1700 [place] [address] Physician Clay Miner Physician Clay Miner - Medical 11/29/24 12/10/24 Naomi Montes [facility] [address] [place] [address] 11/29/24 12/10/24 documented as of this encounter
--- OUTSIDE RECORDS SUMMARY | 2025-06-06 15:21 | XMS_ITS | Encounter Summary ---
Author Organization [place] Address [address] [place] [address] Care Team Providers Care Furnace Tapper Name Role Phone No Ref-Primary, Physician Primary Care Provider Unavailable Fredy Liang MD Unavailable [facility] Primary Care Provider [facility] Nik Mackey MD Unavailable [phone] Coleman Davalos MD Unavailable [phone] Kristin Merino MD Primary Care Provider [phone] AnoopColeman handley MD Unavailable [phone] Abebe Hernandez MD Unavailable [phone] Chago Katz MD Unavailable [phone] Yasmeen Oleary PA-C Unavailable [phone] Yemi Deleon PA-C Unavailable [phone] Love Mcclelland PA-C Unavailable [phone] Naomi Montes [facility] Unavailable Encounter Details Date Type Department Care Team (Late st Contact Info) Description 01/24/2009 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 She presented with mole check. It is located on the back right side up by shoulder. It is located on the upper back and on the right side of the back. The symptom is described as changing. The color is described as brown. There are an unknown number of moles. The mole is changing, changing color, changing in shape and becoming irregular. The symptom is ongoing. In addition, she presented with generic. bruises on both legs but doesnt know where they are coming from. The symptom is described as constant. The symptom started 3 weeks ago. Episodes occur in the morning, in the afternoon and in the evening. The symptom is sudden in onset. The complaint is mild. Current Medication: [place] Thyroid 30 mg Tab, 2 Tablet(s), PO, [...] Not taking now. ROS: Constitutional: The patient denied chills, diaphoresis and fatigue. Cardiovascular: The patient denied arrhythmia, chest pain/pressure and claudication. Respiratory: The patient denied asthma, chest congestion and chest tightness. Hematologic/Lymphatic: The patient complained of abnormal bleeding and bruising and abnormal ecchymoses but denied anemia and lymph node enlargement/mass. Vital Signs: data collected on 01/24/2009 11:08:51 AM by Brenda Louis weight is 149 pounds clothed sitting heart rate is 60 bpm regular blood pressure at Left Arm while Sitting is 108/70 mmHg PE: Constitutional: GENERAL APPEARANCE: Overall: well nourished, well developed and in no acute distress. Ears/Nose/Throat: EXTERNAL EAR: Overall: normal appearance; EXTERNAL NOSE: Overall: benign appearance, no masses and non-tender. Integument: INSPECTION OF SKIN: Location: left leg and right leg. Dx: 924.5 Contusion/bruising of leg (780.79) - C - Fatigue Rx: None Plan: LABS ORDERED SEE SURG FOR MOLE REMOVAL Patient Instructions: None * Torrey Wong - 06/05/2012 7:58 AM CST CC/HPI: None Current Medication: [place] Thyroid 30 mg Tab, 2 Tablet(s), PO, [...] taking now. ROS: None PE: None Dx: 924.5 Contusion/bruising of leg 780.79 Fatigue Rx: None Plan: None Patient Instructions: None documented in this encounter Plan of Treatment Upcoming Encounters Date Type Department Care Team (Late st Contact Info) Description 06/12/2025 1:20 PM FORM BUILDER HELPER Ancillary Procedure [facility] [address] [facility] [address] [place] [phone] Chago Katz MD [address] [place], [place] [address] 06/13/2025 3:00 PM FORM BUILDER HELPER Infusion Therapy Visit [facility] [address] [place] [address] [address] [place] [phone] Nate Beauchamp MD [address] [place], [place] [address] 06/16/2025 11:15 AM FORM BUILDER HELPER Virtual Visit [facility] Urology [facility] [address] [facility] [address] [place] [phone] Chago Katz MD [address] [place], [place] [address] 07/11/2025 3:00 PM FORM BUILDER HELPER Infusion Therapy Visit [facility] [address] [place] [address] [address] [place] [phone] Nate Beauchamp MD [address] [place], [place] [address] 08/14/2025 12:30 PM FORM BUILDER HELPER Office Visit [facility] Eye [facility] [address] [facility] 9 Fl Clin 9A [place] [address] Coleman Davalos MD [address] [address] documented as of this encounter Visit Diagnoses Not on filedocumented in this encounter Care Teams Furnace Tapper Relationship Specialty Start Date End Date No Ref-Primary, Physician PCP - General 02/01/14 03/20/14 Joaquina Odonnell MD PCP - General Family Practice 03/21/14 08/03/22 Kristin Merino MD [address] [place] [address] PCP - General Internal Medicine 08/04/22 Fredy Liang MD Referring Physician Urology 02/02/14 Nik Mackey MD [facility] [address] [place], [place] [address] Referring Physician Ophthalmology 08/24/15 Coleman Davalos MD [address] [place] [address] Ophthalmology 08/24/15 Coleman Davalos MD [address] [place] [address] Assigned PCP 07/09/22 08/05/23 Abebe Hernandez MD [address] [place] 188135 Urology 02/27/23 Chago Katz MD [address] [place] [address] [place] [address] Assigned Surgical Provider 03/28/23 Yasmeen Oleary PA-C [address] [place], [place] [address] Assigned Neuroscience Provider 05/04/24 06/03/24 Yemi Deleon PA-C [address] [place] [address] [place] [address] Assigned Neuroscience Provider 06/04/24 Love Mcclelland PA-C 1700 [place] [address] Physician Pump Oiler Physician Pump Oiler - Medical 11/29/24 12/10/24 Naomi Montes [facility] [address] [place] [address] 11/29/24 12/10/24 documented as of this encounter
--- OUTSIDE RECORDS SUMMARY | 2025-06-06 15:21 | XMS_ITS | Encounter Summary ---
Author Organization [place] Address [address] [place] [address] Care Team Providers Care Blanket Winder Helper Name Role Phone No Ref-Primary, Physician Primary Care Provider Unavailable Fredy Liang MD Unavailable Unavailable WaJoaquina schilling MD Primary Care Provider [facility] Nik Mackey MD Unavailable [phone] Coleman Davalos MD Unavailable [phone] Kristin Merino MD Primary Care Provider [phone] Coleman Davalos MD Unavailable [phone] Abebe Hernandez MD Unavailable [phone] Chago Katz MD Unavailable [phone] Yasmeen Oleary PA-C Unavailable [phone] Yemi Deleon PA-C Unavailable [phone] Love Mcclelland PA-C Unavailable [phone] Naomi Montes [facility] Unavailable Encounter Details Date Type Department Care Team (Late st Contact Info) Description 08/14/2008 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 at IVsite on back of left hand. It is located on the hands. It is located on the left hand. The symptom is described as acute, improving, erythematous and flaking. The color is described as erythematous. The symptom is gradual in onset and ongoing. The symptom started 1 week ago. The complaint does not limit activities. The complaint is asymptomatic. Prior treatments include previously untreated. Current Medication: [place] Thyroid 30 mg Tab, 2 Tablet(s), PO, [...] 2008, From History and discontinued because: Refilled. ROS: Constitutional: The patient complained of fatigue but denied chills and fever. Eyes: The patient denied eye pain and vision change. Ears/Nose/Throat/Neck: The patient denied nasal discharge and otalgia. Cardiovascular: The patient denied chest pain/pressure and palpitations. Respiratory: The patient denied cough and wheezing. Gastrointestinal: The patient denied constipation and diarrhea. Genitourinary/Nephrology: The patient denied dysuria and urinary frequency. Musculoskeletal: The patient denied arthralgia(s) and myalgias. Dermatologic: The patient complained of skin lesion but denied itching and rash. Neurologic: The patient denied dizziness and headache. Psychiatric: The patient denied insomnia and mood swings. Endocrine: The patient complained of diabetes mellitus type 2. Vital Signs: 2nd blood pressure taken by Kamaljit data collected on 08/14/2008 02:30:49 PM by eVrna Waldron weight is 150 pounds clothed sitting heart rate is 52 bpm regular blood pressure at Left Arm while Sitting is 140/76 mmHg blood pressure 2 at Left Arm while Sitting is 120/66 mmHg PE: Constitutional: GENERAL APPEARANCE: Overall: well nourished, well developed and in no acute distress. Integument: INSPECTION OF SKIN: Dermatitis: dryness/flaking, erythema and scaling Location: left hand Hair: normal distribution Rash/Lesions: patch; Consistency: dry. Dx: (782.8) - C - Change in skin texture (red, dry skin on back of left hand - no evidence of infection) (250.00) - C - Diabetes mellitus, type II controlled (244.9) - C - Hypothyroidism (780.52) - C - Insomnia Rx: Ambien 10 mg Tab, 1 Tablet(s), PO, QHS, 30 days, 11 refills, for a total of 30, by Savanna Rios. Plan: Use Eurcerin plus on back of hand and could also sparingly use a mild steroid. Patient Instructions: None POINT PUMPING SUPERVISOR documented in this encounter Plan of Treatment Upcoming Encounters Date Type Department Care Team (Late st Contact Info) Description 06/12/2025 1:20 PM WELL POINT PUMPING SUPERVISOR Ancillary Procedure [facility] [address] [place] [phone] Chago Katz MD [address] [place], [place] [address] 06/13/2025 3:00 PM WELL POINT PUMPING SUPERVISOR Infusion Therapy Visit [facility] Medical [facility] [address] [place] [address] [address] [place] [address] Nate Beauchamp MD [address] [place] [address] 06/16/2025 11:15 AM WELL POINT PUMPING SUPERVISOR Virtual Visit [facility] Urology Clinic [place] [address] [place] [phone] Chago Katz MD [address] [place] [address] 07/11/2025 3:00 PM WELL POINT PUMPING SUPERVISOR Infusion Therapy Visit [facility] Cancer Center [facility] Medical Ctr [facility] [address] [place] [address] [place] [address] Nate Beauchamp MD [address] [facility] 162 [place] [address] 08/14/2025 12:30 PM WELL POINT PUMPING SUPERVISOR Office Visit [facility] Eye [facility] [address] [facility] 9 Fl Clin 9A [place] [address] Coleman Davalos MD 420 [facility] 493 [place], [place] [address] documented as of this encounter Visit Diagnoses Not on filedocumented in this encounter Care Teams Blanket Winder Helper Relationship Specialty Start Date End Date No Ref-Primary, Physician PCP - General 02/01/14 03/20/14 Joaquina Odonnell MD PCP - General Family Practice 03/21/14 08/03/22 Kristin Merino MD 420 [facility] 493 [place] [address] PCP - General Internal Medicine 08/04/22 Fredy Liang MD Referring Physician Urology 02/02/14 Nik Mackey MD [facility] [address] [place] [address] Referring Physician Ophthalmology 08/24/15 Coleman Davalos MD 420 [facility] 493 [place], [place] [address] Ophthalmology 08/24/15 Coleman Davalos MD 420 [facility] 493 [place], [place] [address] Assigned PCP 07/09/22 08/05/23 Abebe Hernandez MD [address] [place] [address] Urology 02/27/23 Chago Katz MD [address] [place] [address] Assigned Surgical Provider 03/28/23 Yasmeen Oleary PA-C [address] [place] [address] Assigned Neuroscience Provider 05/04/24 06/03/24 Yemi Deleon PA-C [address] [place] [address] Assigned Neuroscience Provider 06/04/24 Love Mcclelland PA-C 1700 [place] [address] Physician Web Publisher Physician Web Publisher - Medical 11/29/24 12/10/24 Naomi Montes [facility] [address] [place] [address] 11/29/24 12/10/24 documented as of this encounter
--- OUTSIDE RECORDS SUMMARY | 2025-06-06 15:21 | XMS_ITS | Encounter Summary ---
Author Organization [facility] Address [address] [place] [address] Care Team Providers Care Masking Machine Operator Name Role Phone No Ref-Primary, Physician Primary Care Provider Unavailable Fredy Liang MD Unavailable Unavailable HiJoaquina schilling MD Primary [facility] Nik Mackey MD Unavailable [phone] Coleman Davalos MD Unavailable [phone] Kristin Merino MD Primary Care Provider [phone] Coleman Davalos MD Unavailable [phone] Abebe Hernandez MD Unavailable Chago Katz MD Unavailable [phone] Yasmeen Oleary PA-C Unavailable [phone] Yemi Deleon PA-C Unavailable [phone] Love Mcclelland PA-C Unavailable [phone] Naomi Montes [facility] Unavailable Encounter Details Date Type Department Care Team (Late st Contact Info) Description 06/18/2009 Clinic Report (Director Of Pediatric Rehabilitation) [address] [phone] Verna Waldron MD NO INFO AVAILABLE 09/24/2022 Social History Tobacco Use Types Packs/Day Years Used Date Smoking Tobacco: Never Assessed Comments Unknown Sex and Gender Information Value Date Recorded Sex Assigned at Not on file Legal Sex Female 3:26 AM BIRD TRAPPER Gender Identity Not on file Sexual Orientation Not on file documented as of this encounter Progress Notes * Verna Waldron MD - 06/05/2012 6:07 AM CST CC/HPI: Kidney stones (2) in left lower kidney for Fiber Optic Laser to break uo She presented with preop. The patient has been referred by Dr. Katz. Prior treatments include lithotripsy 1999. The procedure to be performed is Fiber Optic Lasor to 2 kindey stones on left. The procedure has been scheduled on 06/25/2009. Pertinent other conditions include immunizations up to date 01/21/2005, no anesthesia complications, No history of bleeding disorder, No complication of surgery, No transfusion reaction, immune deficiency yes lyme's disease/ H/O diabetes type 2 cured with weight loss and thyroid problem on thyroid medication. Significant medications include No aspirin use and no steroid use. Family history is significant for No anesthesia complications and No history of bleeding disorder. Patient denies hematoma. Associated signs and symptoms include fever low grade and pain. In addition, she presented with back pain. left mid secondary to kidney stones. Current Medication: [place] Thyroid 60 mg Tab, 1 Tablet(s), PO, daily, 30 days, for a total of 30, start on June 18, 2009 and end on July 17, 2009. Aspirin 81 mg Tab, 1 Tablet(s), PO, daily, start on November 23, 2008, end on March 18, 2010, discontinued because: Refilled and Not taking now. ROS: Constitutional: The patient denied fever and recent illness. Eyes: The patient denied eye pain, vision change and visual disturbance. Ears/Nose/Throat/Neck: The patient complained of sore throat (small) but denied nasal discharge, otalgia and sinus congestion. Cardiovascular: The patient denied chest pain/pressure, edema, exercise intolerance and palpitations. Respiratory: The patient denied cough, dyspnea/shortness of breath, productive sputum and wheezing. Gastrointestinal: The patient complained of diarrhea (occasionally) but denied abdominal pain, constipation and gastroesophageal reflux. Genitourinary/Nephrology: The patient complained of flank pain and hematuria (history of - not now) but denied dysuria and urinary incontinence. Musculoskeletal: The patient complained of back pain but denied arthralgia(s), muscle weakness and myalgias. Dermatologic: The patient denied itching and rash. Neurologic: The patient denied dizziness, headache, memory loss, mental status change and vision change. Psychiatric: The patient complained of insomnia but denied anxiety, depression and mood swings. Endocrine: The patient denied diabetes mellitus type 2, obesity and polyuria. Hematologic/Lymphatic: The patient denied abnormal bleeding and bruising and abnormal ecchymoses. Vital Signs: data collected on 06/18/2009 02:38:42 PM by Rosa Ball weight is 147 pounds clothed sitting heart rate is 48 bpm regular blood pressure at Left Arm while Sitting is 112/62 mmHg PE: Constitutional: GENERAL APPEARANCE: Overall: well nourished, well developed and in no acute distress. Eyes: CONJUNCTIVA/EYELIDS: Overall: conjunctiva clear, cornea clear and eyelids normal; PUPILS AND IRISES: Overall: pupils equal, round, reactive to light and accomodation. Ears/Nose/Throat: EXTERNAL EAR: Overall: normal appearance; EXTERNAL NOSE: Overall: benign appearance, no masses and non-tender; OTOSCOPIC EXAM: Overall: external auditory canals clear and tympanic membranes clear; INTERNAL NOSE: Overall: no sinus tenderness; LIPS/TEETH/GINGIVA: Overall: benign lips, normal dentition, benign gingiva and no masses; ORAL CAVITY/PHARYNX/LARYNX: Overall: tonsils benign, oropharyngeal mucosa clear and no masses. Neck: THYROID: Overall: normal size, normal consistency, nontender and no mass lesions. Respiratory: AUSCULTATION: Overall: breath sounds clear bilaterally; [...] Overall: no hepatosplenomegaly. Lymphatic: NECK NODES: Overall: anterior cervical chain benign and posterior cervical chain benign; OTHER NODES: Overall: supraclavicular chain benign. Musculoskeletal: [...] reflexes intact; SENSATION: Overall: intact to touch; MOTOR: Overall: normal bulk, tone. Psychiatric: ORIENTATION/CONSCIOUSNESS: Overall: oriented to person, place and time; MOOD AND AFFECT: Overall: normal mood and affect; APPEARANCE: Overall: well-groomed, good eye contact. Dx: 724.5 Back pain (780.79) - C - Fatigue (244.9) - C - Hypothyroidism 592.0 Kidney stones (729.1) - C - Fibromyositis 780.52 Insomnia Rx: Also on multiple over the counter meds, vitamins, and supplements Ambien 10 mg Tab, 1/2 Tablet(s), PO, QHS, 30 days, 11 refills, for a total of 15, start on June 18, 2009, end on June 12, 2010, by Savanna Rios. Doxycycline 100 mg Cap, 1 Capsule(s), PO, daily, 30 days, 10 refills, for a total of 30, start on June 18, 2009, end on May 13, 2010, one pill a day for 7 days then 7 days off.. Lariam 250 mg Tab, 1 Tablet(s), PO, QW, 30 days, 11 refills, for a total of 6, start on June 18, 2009, end on June 12, 2010, Taking one pill every 5 days. Trazodone 50 mg Tab, 1/2 Tablet(s), PO, daily, 30 days, 10 refills, for a total of 15, start on June 18, 2009, end on May 13, 2010. Plan: None Patient Instructions: She is getting pap smears at [facility]. TRAPPER documented in this encounter Plan of Treatment Upcoming Encounters Date Type Department Care Team (Late st Contact Info) Description 06/12/2025 1:20 PM BIRD TRAPPER Ancillary Procedure [address] [place] [address] Chago Katz MD [address] [place], [place] [address] 06/13/2025 3:00 PM BIRD TRAPPER Infusion Therapy Visit [address] [place] [phone] Nate Beauchamp MD [address] [facility] [address] [place], [place] [address] 06/16/2025 11:15 AM BIRD TRAPPER Virtual Visit [facility] [place] [address] [facility] [address] [place] [phone] Chago Katz MD [address] [place] [address] 07/11/2025 3:00 PM BIRD TRAPPER Infusion Therapy Visit [address] [place] [phone] Nate Beauchamp MD [address] [facility] [address] [facility] [address] [place], [place] [address] 08/14/2025 12:30 PM BIRD TRAPPER Office Visit [facility] - [facility] [address] [facility] 9th Fl Clin [address] [place] [phone] Coleman Davalos MD 420 [facility] 493 [place], [place] [address] documented as of this encounter Visit Diagnoses Not on filedocumented in this encounter Care Teams Masking Machine Operator Relationship Specialty Start Date End Date No Ref-Primary, Physician PCP - General 02/01/14 03/20/14 Joaquina Odonnell MD PCP - General Family Practice 03/21/14 08/03/22 Kristin Merino MD 420 [facility] 493 [place] [address] PCP - General Internal Medicine 08/04/22 Fredy Liang MD Referring Physician Urology 02/02/14 Nik Mackey MD [facility] [address] [place], [place] [address] Referring Physician Ophthalmology 08/24/15 Coleman Davalos MD [address] [id number] Ophthalmology 08/24/15 Coleman Davalos MD [address] [place] [address] Assigned PCP 07/09/22 08/05/23 Abebe Hernandez MD [address] [place], [place] [address] Urology 02/27/23 Chago Katz MD [address] [place], [place] [address] Assigned Surgical Provider 03/28/23 Yasmeen Oleary, PAJuan DavidC [address] [place], [place] [address] Assigned Neuroscience Provider 05/04/24 06/03/24 Yemi Deleon PA-C [address] [address] Assigned Neuroscience Provider 06/04/24 Love Mcclelland PA-C [address]00 [place] [address] Physician Special Events Director Physician Special Events Director - Medical 11/29/24 12/10/24 Naomi Montes [facility] [address] [place] [phone] 11/29/24 12/10/24 documented as of this encounter
--- OUTSIDE RECORDS SUMMARY | 2025-06-06 15:21 | XMS_ITS | Encounter Summary ---
Author Organization [facility] Address [address] [place] [address] Care Team Providers Care Perfect Binder Setter Name Role Phone No Ref-Primary, Physician Primary Care Provider Unavailable Fredy Liang MD Unavailable Unavailable SdJoaquina schilling MD Primary Care Provider [facility] Nik Mackey MD Unavailable [phone] Coleman Davalos MD Unavailable [phone] Kristin Merino MD Primary Care Provider [phone] AnoopColeman handley MD Unavailable [phone] Abebe Hernandez MD Unavailable [phone] Chago Katz MD Unavailable [phone] Yasmeen Oleary PA-C Unavailable [phone] Yemi Deleon PA-C Unavailable [phone] Love Mcclelland PA-C Unavailable [phone] Naomi Montes [facility] Unavailable Encounter Details Date Type Department Care Team (Late st Contact Info) Description 04/12/2009 Clinic Report (Electrical Prospector) [address] [phone] Verna Waldron MD NO INFO AVAILABLE 09/24/2022 Social History Tobacco Use Types Packs/Day Years Used Date Smoking Tobacco: Never Assessed Comments Unknown Sex and Gender Information Value Date Recorded Sex Assigned at Not on file Legal Sex Female 3:26 AM HOTEL MAINTENANCE TECHNICIAN Gender Identity Not on file Sexual Orientation Not on file documented as of this encounter Progress Notes * Verna Waldron MD - 06/05/2012 6:58 AM CST CC/HPI: [facility] She presented with preop. The patient has been referred by Dr. Reny Em [facility] ([facility] [phone]. Prior treatments include biopsy YOLETTE, ASCUS. The procedure to be performed is D & C and last abnormal pap (02/12/09). The procedure has been scheduled on 04/21/2009. Pertinent other conditions include No history of bleeding disorder, No complication of surgery, No transfusion reaction, kidney stones Is taking ibuprofen for kidney stones and thyroid problem hypothyroid. Takes Sachse thyr;oid. Significant medications include NSAID's ibuprofen last used 04/11/09, No aspirin use and no steroid use. Family history is significant for No anesthesia complications and No history of bleeding disorder. Patient denies fever. Associated signs and symptoms include pain cramping but no bleeding.. In addition, she presented with Pap smear abnormality. The symptom is described as atypia YOLETTE, ASCUS HPV negative. The procedure to be performed is D & C and last abnormal pap (02/12/09). The symptom is ongoing. The symptom started 2 months ago. Pertinent other conditions include prior abnormal pap smear. Associated signs and symptoms include fatigue, pelvic pain cramping and urinary frequency. Current Medication: Ambien 10 mg Tab, 1 [...] now. ROS: Constitutional: The patient complained of fatigue and insomnia but denied fever and recent illness. Eyes: The patient denied eye pain, vision change and visual disturbance. Ears/Nose/Throat/Neck: The patient complained of dizziness (possibly Lymes or antibiotics), headache and tinnitus (for years) but denied hearing loss and otalgia. Cardiovascular: The patient complained of fatigue but denied chest pain/pressure (from the back butr could be from kidney stones), edema, exercise intolerance and palpitations. Respiratory: The patient denied cough, dyspnea/shortness of breath, productive sputum and wheezing. Gastrointestinal: The patient complained of abdominal pain, diarrhea, gas and bloating (not gas) and nausea but denied vomiting. Genitourinary/Nephrology: The patient complained of Pap smear abnormality, pelvic pain and urinary frequency (but doesn't produce much). Musculoskeletal: The patient complained of back pain (radiates up neck and down left arm at times) and osteoporosis but denied arthralgia(s), muscle weakness and myalgias (L upper back and radiates to legs). Dermatologic: The patient denied itching and rash. Neurologic: The patient complained of headache and vertigo (was there for months but is now gone.). Psychiatric: The patient denied anxiety, depression, insomnia and mood swings. Endocrine: The patient denied diabetes mellitus type 2 (Had it when she weighed more. She was always diet controlled) and obesity. Hematologic/Lymphatic: The patient denied abnormal bleeding and bruising (urinary bleeding), abnormal ecchymoses and anemia. Vital Signs: data collected on 04/12/2009 02:46:25 PM by Nayla Stauffer weight is 150 pounds clothed height is 6 feet body mass index is 22.80 Kg/m2 sitting heart rate is 48 bpm regular blood pressure at Right Arm while Sitting is 88/60 mmHg PE: Constitutional: GENERAL APPEARANCE: Overall: well [...] and no edema. Abdomen: ABDOMINAL EXAM: Overall: normal bowel sounds; LIVER AND SPLEEN EXAM: [...] INSPECTION OF SKIN: Overall: no rash, lesions. Neurologic: DEEP TENDON REFLEXES: Overall: deep tendon reflexes intact; SENSATION: Overall: intact to touch; MENTAL STATUS: Overall: alert and oriented; MOTOR: Overall: normal bulk, tone. Psychiatric: ORIENTATION/CONSCIOUSNESS: Overall: oriented to person, place and time; MOOD AND AFFECT: Overall: normal mood and affect; APPEARANCE: Overall: well-groomed, good eye contact. Dx: 795.00 Abnormal pap smear (YOLETTE and ASCUS Negative for prosper risk HPV) (780.79) - C - Fatigue (780.52) - C - Insomnia (244.9) - C - Hypothyroidism Rx: None Plan: None Patient Instructions: None documented in this encounter Plan of Treatment Upcoming Encounters Date Type Department Care Team (Late st Contact Info) Description 06/12/2025 1:20 PM HOTEL MAINTENANCE TECHNICIAN Ancillary Procedure [facility] [address] [place] [phone] Chago Katz MD [address] [place], [place] [address] 06/13/2025 3:00 PM HOTEL MAINTENANCE TECHNICIAN Infusion Therapy Visit [address] [place] [phone] Nate Beauchamp MD [address] [place], [place] [address] 06/16/2025 11:15 AM HOTEL MAINTENANCE TECHNICIAN Virtual Visit [facility] Urology [facility] [address] [place] [phone] Chago Katz MD [address] [place], [place] [address] 07/11/2025 3:00 PM HOTEL MAINTENANCE TECHNICIAN Infusion Therapy Visit [address] [place] [phone] Nate Beauchamp MD [address] [facility] 162 [place], [place] [address] 08/14/2025 12:30 PM HOTEL MAINTENANCE TECHNICIAN Office Visit [facility] Eye [facility] 516 [facility] 9th Fl Clin [address] [place] [phone] Coleman Davalos MD 420 [facility] 493 [place], [place] [address] documented as of this encounter Visit Diagnoses Not on filedocumented in this encounter Care Teams Perfect Binder Setter Relationship Specialty Start Date End Date No Ref-Primary, Physician PCP - General 02/01/14 03/20/14 Joaquina Odonnell MD PCP - General Family Practice 03/21/14 08/03/22 Kristin Merino MD 420 [facility] 493 [place] [address] PCP - General Internal Medicine 08/04/22 Fredy Liang MD Referring Physician Urology 02/02/14 Nik Mackey MD [facility] [address] [place] [address] Referring Physician Ophthalmology 08/24/15 Coleman Davalos MD [address] [place] [address] Ophthalmology 08/24/15 Coleman Davalos MD [address] [place] [address]27[address] Assigned PCP 07/09/22 08/05/23 Abebe Hernandez MD [address] [place] [address] Urology 02/27/23 Chago Katz MD [address] [place] [address] Assigned Surgical Provider 03/28/23 Yasmeen Oleary PA-C [address] [place] [address] Assigned Neuroscience Provider 05/04/24 06/03/24 Yemi Deleon PA-C [address] [address] Assigned Neuroscience Provider 06/04/24 Love Mcclelland PA-C [address] [place] [address] Physician Power Shovel Operator Physician Power Shovel Operator - Medical 11/29/24 12/10/24 Naomi Montes [facility] [address] [place] [phone] 11/29/24 12/10/24 documented as of this encounter
--- OUTSIDE RECORDS SUMMARY | 2025-06-06 15:21 | XMS_ITS | Encounter Summary ---
Author Organization [facility] Address [address] [place] [address]. [place] [address] Care Team Providers Care Steffen House Supervisor Name Role Phone Fredy Liang MD Unavailable Unavailable Nik Mackey MD Unavailable [phone] Coleman Davalos MD Unavailable [phone] Kristin Merino MD Primary Care Provider [phone] Abebe Hernandez MD Unavailable [phone] Chago Katz MD Unavailable [phone] Yemi Deleon PA-C Unavailable [phone] Love Mcclelland PAJuan DavidC Unavailable [phone] Naomi Montes [facility] Unavailable Encounter Details Date Type Department Care Team (Late st Contact Info) Description 09/26/2024 [facility] [address] [place] [address] Graciela Vinson PA-C [address] [address] Social History Tobacco Use Types Packs/Day Years [...] in an overnight fpc, or couch-surfing.) Yes 09/28/2024 Are you worried [...] on file Legal Sex Female 3:26 AM INDUSTRIAL HYGIENE TECHNICIAN Gender Identity Not on file Sexual Orientation Not on file documented as of this encounter Miscellaneous Notes * Telephone Encounter - Albin Mathias Linda - 09/26/2024 8:58 AM CDT Caller reporting the following red-flag symptom(s): Patient called in stating that her symptoms areback including fever and lower back pain. Per the system red-flag symptom policy, patient was instructed to: speak with a Registered Nurse Action: Patient warm transferred to a Registered Nurse documented in this encounter Plan of Treatment Upcoming Encounters Date Type Department Care Team (Late st Contact Info) Description 06/12/2025 1:20 PM INDUSTRIAL HYGIENE TECHNICIAN Ancillary Procedure [facility] [address] [place] [address] [place] [phone] Chago Katz MD [address] [place] [address] 06/13/2025 3:00 PM INDUSTRIAL HYGIENE TECHNICIAN Infusion Therapy Visit [facility] [address] [place] [address] [address] [place] [phone] Nate Beauchamp MD [address] [place], [place] [address] 06/16/2025 11:15 AM INDUSTRIAL HYGIENE TECHNICIAN Virtual Visit [facility] Urology [facility] [address] [place] [address] [place] [phone] Chago Katz MD [address] [place], [place] [address] 07/11/2025 3:00 PM INDUSTRIAL HYGIENE TECHNICIAN Infusion Therapy Visit [facility] [address] [place] [address] [address] [place] [phone] Nate Beauchamp MD [address] [place], [place] [address] 08/14/2025 12:30 PM INDUSTRIAL HYGIENE TECHNICIAN Office Visit [facility] Eye [facility] - [address] [facility] [address] [place] [address] Coleman Davalos MD [address] [place] [address] [address] [place] [address] documented as of this encounter Visit Diagnoses Not on filedocumented in this encounter Care Teams Steffen House Supervisor Relationship Specialty Start Date End Date Kristin Merino MD [address] [place] [address] PCP - General Internal Medicine 08/04/22 Fredy Liang MD Referring Physician Urology 02/02/14 Nik Mackey MD [facility] [address] [place] [address] Referring Physician Ophthalmology 08/24/15 Coleman Davalos MD [address] [place] [address] Ophthalmology 08/24/15 Abebe Hernandez MD [address] [place] [address] Urology 02/27/23 Chago Katz MD [address] [place] [address] Assigned Surgical Provider 03/28/23 Yemi Deleon PA-C [address] [place] [address] Assigned Neuroscience Provider 06/04/24 Love Mcclelland PA-C [address] [place] [address] Physician Vegetable Loader Machine Operator Physician Vegetable Loader Machine Operator - Medical 11/29/24 12/10/24 Naomi Montes [facility] [id number] [place] [address] 11/29/24 12/10/24 documented as of this encounter
[2025-06-06 15:39] VITALS: BP 127/72; PULSE 79; RESP 24; TEMP 36.5; O2SAT 87; BMI 25.5
[2025-06-06 15:58] LABS: Glucose, Point-of-Care* 301 mg/dl (60-115)
[2025-06-06 16:15] LABS: Appearance Urine Clear (Clear)
[2025-06-06 16:30] VITALS: O2SAT 93
--- NOTE | 2025-06-06 16:35 | CRLHL7_ITS ---
For Patients: As a result of the Century Cures Act, medical imaging exams and procedure reports are released immediately into your electronic medical record. You may view this report before your referring provider. If you have questions, please contact your health care provider. Indication: Recurrent stones, lower abdominal pain Technique: Noncontrast CT through the abdomen and pelvis with multiplanar reformats. Comparison: None Findings: Lower chest: Bibasilar scarring and/or atelectasis. Hepatobiliary: Nodular contour of the liver. No acute abnormality appreciated. Spleen: Unremarkable. Pancreas: No acute abnormality appreciated. Adrenal glands: No acute abnormality appreciated. Kidneys: Hemorrhagic right perirenal focus. Bilateral non-obstructing stones. No overt hydronephrosis. Bowel: No obstruction. No focal perienteric or pericolonic stranding is appreciated. Vascular: Calcified atherosclerosis. Lymph nodes: Shotty nodes. Peritoneum: Small to moderate volume ascites. Diffuse mesenteric edema. : Multiple phleboliths with no definite obstructing stone visualized. Soft tissues: No acute abnormality appreciated. Bones: No acute fracture. No lytic or blastic lesion. Chronic thoracolumbar compression fractures and spondylosis. Impression: 1. Bilateral nonobstructing renal stones. No hydronephrosis. Multiple pelvic phleboliths are noted with no definite distal ureteral stone. 2. Cirrhosis with stigmata of portal hypertension. 3. Hemorrhagic lesion adjacent to the right kidney, possibly an exophytic hemorrhagic cyst. Correlation with prior imaging recommended. If none is available, a follow-up CT in 6 months may be considered. Please note that all CT scans at this facility use dose modulation, iterative reconstruction, and/or weight-based dosing when appropriate to reduce radiation dose to as low as reasonably achievable. Dictated by Glynn Lopes MD @ 06/06/2025 6:10:30 PM (Electronically Signed)
--- NOTE | 2025-06-06 16:36 | CRLHL7_ITS ---
For Patients: As a result of the Century Cures Act, medical imaging exams and procedure reports are released immediately into your electronic medical record. You may view this report before your referring provider. If you have questions, please contact your health care provider. INDICATION: Foreign object, looking for foreign OBJECT-NEEDLE TECHNIQUE: Humerus radiograph 2 views right COMPARISON: None FINDINGS: Bone: No acute fractures or aggressive bone lesions are identified. Moderate diffuse osteopenia is noted. Joint: The glenohumeral joint is unremarkable. The acromioclavicular joint is unremarkable. The elbow joint is unremarkable, but the elbow joint is not profiled. If there is pain or tenderness in this region, dedicated views of the elbow are recommended. Soft tissue: Overlying fabric artifacts limits evaluation of the soft tissues. The visualized hemithorax is unremarkable in appearance. No radiopaque foreign bodies are seen. IMPRESSION: 1. No acute osseous injuries are noted. 2. No radiopaque foreign bodies are identified but radiolucent foreign objects cannot be assessed by radiography. Prelim Report By Dr. Bassem Parish @ 06/06/2025 5:42:30 PM ADDENDUM Dictated by: MD @ 06/06/2025 17:44:29 (Electronically Signed)
--- NOTE | 2025-06-06 16:47 | ED.GENADULT ---
HPI - General Adult General Chief complaint: Weakness Stated complaint: dark urine, swollen ankles Time Seen by Provider: 06/06/25 16:19 History of Present Illness HPI narrative: This 69-year-old female comes in with her stating some generalized weakness which is not new for her. She has many medical conditions and continues to talk on and on about each issue. She states that she is having some lower abdominal pain and reports history of recurrent kidney stones. She does not report any flank pain or dysuria symptoms except that she states that her urine is dark colored. She is reporting some fluid in her lower extremities. She also is concerned that there might be a needle that stuck in the lateral aspect of her right upper arm. She uses a Katelynn needle and thinks that something like this may have happened. She reports lots of sensitivities to various medications and treatments she does not appear to be in any kind of distress currently. She did arrive here with some hypoxia a with oximetry at around 88% on room air. At the time of my visit her oximetry is at 93% on room air. She does not report any pulmonary symptoms but states that she is a due to have a follow-up appointment with a land agent and a counselor aide. She has a scooter that she uses at home but she is able to get up and walk and did walk in here from the car. She does not report any unilateral weakness or signs of stroke. Her speech is normal. Related Data Home Medications ?Medication ?Instructions ?Recorded ?Confirmed blood-glucose sensor (FreeStyle #1 ea 06/02/25 06/02/25 Katelynn 3 Plus Sensor device) duloxetine 20 mg capsule,delayed 20 mg PO DAILY 06/02/25 06/02/25 release furosemide 20 mg tablet 20 mg PO DAILY 06/02/25 06/02/25 glipizide 5 mg tablet 5 mg PO BID 06/02/25 06/02/25 levetiracetam 500 mg tablet 500 mg PO BID 06/02/25 06/02/25 metformin 500 mg tablet 500 mg PO BID 06/02/25 06/02/25 spironolactone 25 mg tablet 12.5 mg PO DAILY 06/02/25 06/02/25 tamsulosin 0.4 mg capsule 0.4 mg PO DAILY 06/02/25 06/02/25 thyroid (pork) 15 mg tablet 45 mg PO DAILY 06/02/25 06/02/25 ([place] Thyroid) Allergies Allergy/AdvReac Type Severity Reaction Status Date / Time gluten Allergy Mild Verified 06/02/25 17:48 gabapentin Allergy Unknown Verified 06/06/25 15:46 epinephrine AdvReac Mild Racing Verified 06/06/25 15:46 Heart Review of Systems Status of ROS: Reports: 10 or more systems reviewed and unremarkable except as noted in History and below Narrative: Constitutional: No fevers, no weight gain or loss. Eyes: No discharge. No vision changes. HENT: No congestion, no sore throat, no ear pain. Cardiovascular: No chest pain, no palpitations. Respiratory: No shortness of breath, no wheezes, no cough. Gastrointestinal: No vomiting, no diarrhea. She reports some pain across her lower abdomen. Genitourinary: No dysuria, no hematuria. Musculoskeletal: Normal range of motion. Skin: No rashes, no pruritis. Neurological: No dizziness, weakness, sensory change, speech change. Endo/Heme/Allergies: No bruising or bleeding. No polydipsia. Pysch: no suicidality, no anxiety, no insomnia. All other systems reviewed and are negative. Exam Const: Vital Signs, click to edit/add: Vital Signs - 24 hr 06/06/25 15:39 06/06/25 16:30 Temperature 97.7 F Pulse Rate [Pulse Oximeter] 79 Respiratory Rate 24 Blood Pressure [Ri ght Forearm] 127/72 Pulse Oximetry 87 L 93 Oxygen Delivery Me thod Room Air Room Air Course Vital Signs Vital signs: Initial Vital Signs Temperature 97.7 F 06/06/25 15:39 Temperature Source Temporal Artery Scan 06/06/25 15:39 Pulse Rate 79 06/06/25 15:39 Respiratory Rate 24 06/06/25 15:39 Blood Pressure 127/72 06/06/25 15:39 Blood Pressure Mean 90 06/06/25 15:39 Blood Pressure Position Sitting 06/06/25 15:39 Pulse Oximetry 87 L 06/06/25 15:39 Oxygen Delivery Method Room Air 06/06/25 15:39 Vital Signs Temperature 97.7 F 06/06/25 15:39 Pulse Rate 79 06/06/25 15:39 Respiratory Rate 24 06/06/25 15:39 Blood Pressure 127/72 06/06/25 15:39 Pulse Oximetry 87 L 06/06/25 15:39 Oxygen Delivery Method Room Air 06/06/25 15:39 Temperature 97.7 F 06/06/25 15:39 Pulse Rate 79 06/06/25 15:39 Respiratory Rate 24 06/06/25 15:39 Blood Pressure 127/72 06/06/25 15:39 Pulse Oximetry 93 06/06/25 16:30 Oxygen Delivery Method Room Air 06/06/25 16:30 Medical Decision Making MDM Narrative Medical decision making narrative: This patient comes in reporting weakness and various other chronic conditions. I did obtain a CT scan of her abdomen and pelvis and this shows evidence of nonobstructive stones bilaterally and chronic cirrhosis of the liver. Otherwise no significant pertinent findings for now on CT imaging. She wanted an x-ray of her right upper arm with concern that she may have a needle stuck in the arm. This returned without any evidence of such. Her labs show elevated bilirubin but liver enzymes are in normal range. She states that this is not a new finding for her. 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 Urinalysis also is showing no sign of infection. The patient is reassured with these results and does plan to follow-up with gastroenterology regarding her elevated bilirubin levels. She is okay to be discharged home. Lab Data Labs: Lab Results 06/06/25 06/06/25 06/06/25 Range/Units 15:57 15:59 16:50 WBC 4.89 (4.50-11.00) K/uL RBC 4.09 (4.00-5.20) m/uL Hgb 12.7 (12.0-16.0) gm/dL Hct 39.0 (33.0-51.0) % MCV 95 (80-100) fL MCH 31 (26-34) pg MCHC 33 (32-36) gm/dL RDW Coeff of Triny 16.0 H (11.5-15.5) % Plt Count 89 L (140-440) K/uL Neut % (Auto) 48.8 (42.0-72.0) % Lymph % (Auto) 34.8 (20-44) % Riley % (Auto) 12.5 H (0.0-11.0) % Eos % (Auto) 3.3 (0.0-7.0) % Baso % (Auto) 0.4 (0.0-3.0) % Neut # (Auto) 2.39 (1.7-7.0) K/uL Lymph # (Auto) 1.70 (0.90-2.90) K/uL Riley # (Auto) 0.60 (0.00-0.90) K/UL Eos # (Auto) 0.16 (0.00-0.50) K/uL Baso # (Auto) 0.02 (0.00-0.30) K/uL Abs Immat Gran (auto) 0.01 (0.00-0.30) K/uL Imm/Tot Granulo (auto) 0.2 % Sodium 135 (135-149) mmol/L Potassium 3.4 L (3.6-5.1) mmol/L Chloride 101 (96-114) mmol/L Carbon Dioxide 21 (20-32) mmol/L Anion Gap 13 (7-15) mEq/L BUN 5 L (7-30) mg/dL Creatinine 0.5 (0.5-1.5) mg/dL Estimated Creat Clear 52.81 Estimated GFR 101 ml/min Glucose 286 H (60-115) mg/dL Calcium 8.5 (8.4-10.6) mg/dL Total Bilirubin 6.9 H (0.1-1.5) mg/dL Direct Bilirubin 2.6 H (0.0-0.5) mg/dL AST 56 H (12-35) U/L ALT 30 (4-35) U/L Alkaline Phosphatase 195 H (40-150) U/L Total Protein 7.9 (6.0-8.3) g/dL Albumin 3.2 L (3.3-5.0) g/dL Urine Color Sadie A (Yellow) Urine Appearance Clear (Clear) Urine pH 7.0 (5.0-8.5) Ur Specific [place] 1.010 (1.000-1.030) Urine Protein Negative (Negative) Urine Glucose (UA) Negative (Negative) Urine Ketones Negative (Negative) Urine Blood Trace-intact A (Negative) Urine Nitrite Negative (Negative) Urine Bilirubin Negative (Negative) Urine Urobilinogen 0.2 (0.2-1.0) Ur Leukocyte Esterase Negative (Negative) Urine RBC 0-2 (0-2) Urine WBC 0-2 (0-5) Ur Squamous Epith Cells None (None-Few) Urine Bacteria None (None) POC Glucose 301 H (60-115) mg/dl Imaging Data CT scan - abdomen: Radiologist's impression: 1. Bilateral nonobstructing renal stones. No hydronephrosis. Multiple pelvic phleboliths are noted with no definite distal ureteral stone. 2. Cirrhosis with stigmata of portal hypertension. 3. Hemorrhagic lesion adjacent to the right kidney, possibly an exophytic hemorrhagic cyst. Correlation with prior imaging recommended. If none is available, a follow-up CT in 6 months may be considered. Discharge Plan Discharge Clinical Impression: Hyperbilirubinemia, Cirrhosis of liver Patient Disposition: Home, Self-Care Condition: Stable Additional Instructions: Continue current medications. Follow up with Gastroenterology and other specialists for further evaluation and treatment. Return if worsening symptoms occur. Prescriptions: No Action metformin 500 mg tablet 500 mg PO BID levetiracetam 500 mg tablet 500 mg PO BID spironolactone 25 mg tablet 12.5 mg PO DAILY tamsulosin 0.4 mg capsule 0.4 mg PO DAILY furosemide 20 mg tablet 20 mg PO DAILY glipizide 5 mg tablet 5 mg PO BID duloxetine 20 mg capsule,delayed release(DR/EC) 20 mg PO DAILY thyroid (pork) [[place] Thyroid] 15 mg tablet 45 mg PO DAILY (DME) FreeStyle Katelynn 3 Plus Sensor Device See Rx Instructions .ROUTE .MEDSUPPLY Qty: 1 Patient Comments: [NO ORIGINAL SIG] Rx Instructions: As directed Follow Up/Referrals: Kristin Merino M.D. [Primary Care Provider, Internal Medicine] Stand Alone Forms: [employer] Info Instructions
[2025-06-06 17:06] LABS: Hematocrit* 39.0 % (33.0-51.0); Hemoglobin* 12.7 gm/dL (12.0-16.0); Immature Granulocytes Abs Auto 0.01 K/uL (0.00-0.30); Immature Granulocytes Pct Auto 0.2 %; Lymphocytes Absolute Auto 1.70 K/uL (0.90-2.90); Mean Corpuscular HGB Conc 33 gm/dL (32-36); Mean Corpuscular Hemoglobin 31 pg (26-34); Mean Corpuscular Volume 95 fL (80-100); RDW Coefficient of Variation % 16.0 % (11.5-15.5); Red Blood Count* 4.09 m/uL (4.00-5.20); White Blood Count* 4.89 K/uL (4.50-11.00)
[2025-06-06 17:16] LABS: Slide Review Reflex No
[2025-06-06 17:21] LABS: Albumin* 3.2 g/dL (3.3-5.0); Chloride* 101 mmol/L (96-114); Potassium* 3.4 mmol/L (3.6-5.1); Sodium* 135 mmol/L (135-149)
[2025-06-06 17:23] LABS: Blood Urea Nitrogen* 5 mg/dL (7-30); Creatinine* 0.5 mg/dL (0.5-1.5); Est. Creatinine Clearance* 52.81; Estimated Glomerular Filt Rate 101 ml/min
[2025-06-06 17:24] LABS: Alanine Aminotransferase* 30 U/L (4-35); Alkaline Phosphatase* 195 U/L (40-150); Anion Gap 13 mEq/L (7-15); Aspartate Amino Transferase* 56 U/L (12-35); Bilirubin Direct* 2.6 mg/dL (0.0-0.5); Bilirubin Total* 6.9 mg/dL (0.1-1.5); Calcium* 8.5 mg/dL (8.4-10.6); Carbon Dioxide* 21 mmol/L (20-32); Glucose* 286 mg/dL (60-115); Total Protein* 7.9 g/dL (6.0-8.3)
[2025-06-06 18:34] VITALS: PULSE 83; O2SAT 90
[2025-06-06 18:45] VITALS: PULSE 77; O2SAT 93
== END 2025-06-06 19:30 | disposition home or self-care (01) ==
PROVIDERS: Emergency Provider Emergency Medicine Emergency Medical Services; PCP Pediatrics
DX: K74.60 Unspecified cirrhosis of liver (principal); E80.6 Other disorders of bilirubin metabolism
CPT/HCPCS: 36415; 73060; 74176; 80048; 80076; 81001; 82947; 85025; 99284; 99285